=== PATIENT | female | born 1935 | race Caucasian/White ===

== ENCOUNTER → 2021-04-22 10:23 | Outpatient (REF) | payer MEDICARE, MEDICAID, SELFPAY | LOC: ANHLAB 10:23 | PROVIDERS: Visit Provider Nurse Practitioner | DX: C44.1292 Squamous cell carcinoma of skin of left lower eyelid, including canthus (principal); C44.1192 Basal cell carcinoma of skin of left lower eyelid, including canthus | CPT/HCPCS: 88305; 88331 ==

== ENCOUNTER 2021-07-31 12:54 | Outpatient (RCR) | payer MEDICARE, MEDICAID, SELFPAY | END 2021-07-31 23:59 | disposition home or self-care (01) | LOC: ANHAUDIO 12:54 | DX: Z46.1 Encounter for fitting and adjustment of hearing aid (principal) | CPT/HCPCS: 99199 ==

== ENCOUNTER → 2021-09-17 08:52 | Outpatient (REF) | payer MEDICARE, MEDICAID, SELFPAY | LOC: ANHLAB 08:52 | PROVIDERS: Visit Provider Nurse Practitioner | DX: C44.722 Squamous cell carcinoma of skin of right lower limb, including hip (principal) | CPT/HCPCS: 88305 ==

== ENCOUNTER → 2021-11-11 09:29 | Outpatient (REF) | payer MEDICARE, MEDICAID, SELFPAY | LOC: ANHLAB 09:29 | PROVIDERS: Visit Provider Nurse Practitioner | DX: C44.722 Squamous cell carcinoma of skin of right lower limb, including hip (principal) | CPT/HCPCS: 88305; 88331 ==

== ENCOUNTER 2021-11-27 16:11 | Inpatient (IN) | payer MEDICARE, MEDICAID, SELFPAY ==
--- NOTE | ~2021-11-27 | CT_ITS ---
EXAMINATION: CT brain wo [facility] EXAM DATE: 11/27/2021 16:40 INDICATION: dizziness, fall head injury TECHNIQUE: Spiral CT of the head was performed without contrast. Axial, coronal and sagittal images were reviewed. The dose-length product (DLP) for this examination was 605.33 mGy-cm. The exposure w as tailored according to patient size, and iterative reconstruction (ASIR) was used as additional dos e reduction technique. There is no prior study for comparison. FINDINGS: There is no acute intraparenchymal hemorrhage. No evidence of intraparenchymal brain mass lesion. No evidence of acute infarction. Please note that initial head CT has limited sensitivity f or small or acute infarctions. There is moderate periventricular and subcortical hypodensity, nonspec ific but probably related to small vessel ischemic disease. There is mild prominence of the sulci a nd ventricles related to cerebral atrophy. There is intracranial carotid arteriosclerosis. There a re no extra-axial collections. There is no mass effect or midline shift. Patient has had bilateral ocular lens surgery. Soft tissue is unremarkable. The visualized sinuses and mastoid air cells are well aerated. IMPRESSION: 1. No acute intracranial findings. 2. Chronic age related findings. Reviewed, dictated and finalized at location [facility]
[2021-11-27 16:10] VITALS: BP 189/121; PULSE 97; RESP 14; TEMP 36.9; O2SAT 99
--- NOTE | 2021-11-27 16:21 | ECG_ITS ---
Measurements Intervals [place] Rate: 94 P: 58 AR: 143 QRS: 9 QRSD: 85 T: 40 QT: 354 QTc: 445 Interpretive Statements SINUS RHYTHM VENTRICULAR TRIGEMY AND VENTRICULAR BIGEMINY ABNORMAL ECG Electronically Signed On 11-27-2021 20:04:39 [employer] by Ayan Rodriguez D.O.
--- NOTE | 2021-11-27 16:39 | ED.FALL ---
HPI - Fall General Chief Complaint: Fall Stated Complaint: Fall, Dizzy Due to Fall Yesterday Time Seen by Provider: 11/27/21 16:13 History of Present Illness HPI Narrative: 86-year-old female presents to the emergency room status post fall that occurred yesterday in assisted living. Patient states that she has been dizzy and lightheaded intermittently for the past few months. Patient states yesterday she stood up with the assistance of her walker fell over striking her head on a portable heater. Patient denies altered mental status loss of consciousness. Denies chest pain shortness of breath Related Data Home Medications Medication Instructions Recorded Confirmed ascorbic acid (vitamin C) 500 mg 500 mg PO DAILY 04/22/21 tablet calcium carbonate [Calcium 600] PO BID 04/22/21 coenzyme Q10 50 mg capsule 50 mg PO DAILY 04/22/21 gabapentin 100 mg capsule 100 mg PO TID 04/22/21 ibuprofen 200 mg capsule 200 mg PO TID PRN cap 04/22/21 levothyroxine 88 mcg tablet 88 mcg PO DAILY 04/22/21 lisinopril 5 mg tablet 5 mg PO DAILY 04/22/21 metoprolol tartrate 25 mg tablet 25 mg PO DAILY 04/22/21 omega-3 fatty acids 1,000 mg 1,000 mg PO DAILY 04/22/21 capsule vitamin B complex 1 tablet PO DAILY 04/22/21 vitamin E 200 unit capsule 400 unit PO DAILY cap 04/22/21 Allergies Allergy/AdvReac Type Severity Reaction Status Date / Time No Known Allergies Allergy Verified 11/26/21 10:56 Review of Systems Review of Systems: CONSTITUTIONAL: Denies fever, chills, or sweats. EYES: Denies visual changes, redness, or discharge. ENT: Denies rhinorrhea, congestion, sore throat, or otalgia. CARDIOVASCULAR: Denies chest pain, palpitations, or edema. RESPIRATORY: Denies cough or dyspnea. GASTROINTESTINAL: Denies abdominal pain, nausea, vomiting, or diarrhea. GENITOURINARY: Denies dysuria or hematuria. SKIN: Denies rash or itching. MUSCULOSKELETAL: Denies back pain, joint pain, or myalgia. NEUROLOGIC: Denies headache, numbness, dizziness, or weakness. PSYCHIATRIC: Denies anxiety or depression. [facility] Past Medical History Medical History (Updated 11/27/21 @ 17:49 by Faisal Greer APRN) High cholesterol History of squamous cell carcinoma HTN (hypertension) Surgical History Surgical History History of hysterectomy History of parathyroidectomy Social History Social History Smoking status: Never smoker Alcohol intake: never Substance use: never Substance use type: does not use Exam Narrative: GENERAL: Well-appearing, well-nourished, and in no acute distress. HEAD: Normocephalic, small hematoma to the right scalp. EYES: PERRLA and EOMI. ENT: Nares clear, no rhinorrhea or epistaxis. Mucous membranes moist. Oropharynx without tonsillar hypertrophy exudate or other lesions. Bilateral TMs pearly [place]zada nonbulging NECK: Supple. No adenopathy or masses. No carotid bruits or JVD CHEST: Clear to auscultation. No respiratory distress. No wheezes rales or rhonchi HEART: Regular rate and rhythm. No murmur heard. Normal peripheral pulses. ABDOMEN: Soft, nontender, nondistended, normal active bowel sounds. EXTREMITIES: Normal range of motion. No edema. SKIN: Warm, dry, no rash. NEURO: No focal deficits. Alert and oriented x3. PSYCH: Normal mood and affect. Course Vital Signs Vital signs: Vital Signs Temperature 36.9 C 11/27/21 16:10 Pulse Rate 97 11/27/21 16:10 Respiratory Rate 14 11/27/21 16:10 Blood Pressure 189/121 H 11/27/21 16:10 Pulse Oximetry 99 11/27/21 16:10 Temperature 36.9 C 11/27/21 16:10 Pulse Rate 97 11/27/21 16:10 Respiratory Rate 14 11/27/21 16:10 Blood Pressure 189/121 H 11/27/21 16:10 Pulse Oximetry 99 11/27/21 16:10 MDM - Fall Lab Data Result diagrams: 11/27/21 16:32 11/27/21 16:32 Labs: Lab Results 11/27/2111/27
[2021-11-27 16:44] LABS: Basophils Percent Auto 0.5 % (0.2-1.2); Eosinophils Absolute Auto 0.2 K/mm3 (0-0.3); Eosinophils Percent Auto 2.4 % (0-4.4); Hematocrit 39.4 % (37.0-47.0); Hemoglobin 13.1 g/dL (12.0-15.0); Immature Granulocyte Absolute 0.01 K/mm3 (0.00-0.031); Immature Granulocyte Percent A 0.1 % (0-0.5); Mean Corpuscular HGB Conc 33.2 g/dl (32-36); Mean Corpuscular Hemoglobin 30.8 pg (26-34); Mean Corpuscular Volume 92.5 fl (80-100); Mean Platelet Volume 10.6 fl (7.4-10.4); Monocytes Percent Auto 12.2 % (2.6-8.5); Neutrophils Absolute Auto 4.5 K/mm3 (1.3-6.7); Neutrophils Percent Auto 57.8 % (45.5-73.1); Platelet Count Result 235 k/mm3 (150-375); Red Blood Count 4.26 M/mm3 (4.2-5.4); Red Cell Distribution Width 13.1 % (11.5-14.5); White Blood Count 7.8 K/mm3 (4.5-10.0)
[2021-11-27 16:58] LABS: Alanine Aminotransferase 12 U/L (4-35); Albumin Level 4.3 g/dL (3.5-5.1); Alkaline Phosphatase 78 U/L (38-126); Anion Gap 7 mmol/L (8-16); Aspartate Amino Transferase 26 U/L (14-36); Bilirubin,Total 0.4 mg/dL (0.2-1.3); Blood Urea Nitrogen 17 mg/dL (7-17); Carbon Dioxide 25 mmol/L (22-30); Chloride 103 mmol/L (98-107); Estimated CRCL calculation 43 ml/min; Estimated Glomerular Filt Rate > 60; Glucose 109 mg/dL (65-110); Potassium 4.3 mmol/L (3.4-5.0); Sodium 135 mmol/L (137-145)
[2021-11-27 17:09] LABS: Troponin I < 0.012 ng/mL (0.000-0.034)
[2021-11-27] MEDS: lisinopriL 5 MG TABLET PO (17:24)
[2021-11-27 18:10] VITALS: BP 194/108; PULSE 90; RESP 15; O2SAT 98
[2021-11-27 19:37] VITALS: BP 173/62; PULSE 65; RESP 14; O2SAT 96
[2021-11-27 19:37] LABS: SARS-CoV-2 RNA PCR Negative
[2021-11-27 20:44] VITALS: PULSE 91
[2021-11-27] MEDS: METOPROLOL TARTRATE 25 MG TABLET PO (20:44)
[2021-11-27] MEDS: hydrALAZINE HCL 20 MG/ML VIAL 10 MG IV PUSH (20:45)
[2021-11-27 20:59] VITALS: BP 146/70; PULSE 95; RESP 20; O2SAT 97
--- NOTE | 2021-11-27 21:13 | PM.IMHP ---
H&P: HPI History of Present Illness Date/Time: 11/27/21 21:13 Chief Complaint: Syncope Narrative: 86 years old female with past medical history of hypertension presented to emergency room status post fall yesterday and assisted living patient feel dizzy and lightheaded when she stood up she had syncopal episode and fall patient has similar episodes in the past patient denies loss of consciousness chest pain shortness and breath EKG shows trigeminy troponin was negative CT scan of the head was negative patient was admitted to the hospital for further evaluation and treatment Review of Systems Review of Systems: All systems reviewed & are unremarkable except as noted in HPI and below PMFSH Past Medical History Medical History High cholesterol History of squamous cell carcinoma HTN (hypertension) Surgical History Surgical History History of hysterectomy History of parathyroidectomy Social History Social History Smoking status: Never smoker Alcohol intake: never Substance use: never Substance use type: does not use Meds Home Medications and Allergies Home Medications Medication Instructions Recorded Confirmed Type ascorbic acid (vitamin C) 500 mg 500 mg PO DAILY 04/22/21 History tablet calcium carbonate [Calcium 600] PO BID 04/22/21 History coenzyme Q10 50 mg capsule 50 mg PO DAILY 04/22/21 History gabapentin 100 mg capsule 100 mg PO TID 04/22/21 History ibuprofen 200 mg capsule 200 mg PO TID PRN cap 04/22/21 History levothyroxine 88 mcg tablet 88 mcg PO DAILY 04/22/21 History lisinopril 5 mg tablet 5 mg PO DAILY 04/22/21 History metoprolol tartrate 25 mg tablet 25 mg PO DAILY 04/22/21 History omega-3 fatty acids 1,000 mg 1,000 mg PO DAILY 04/22/21 History capsule vitamin B complex 1 tablet PO DAILY 04/22/21 History vitamin E 200 unit capsule 400 unit PO DAILY cap 04/22/21 History Allergies Allergy/AdvReac Type Severity Reaction Status Date / Time No Known Allergies Allergy Verified 11/26/21 10:56 Vital Signs Vital Signs - 24 hr 11/27/21 16:10 11/27/21 18:10 11/27/21 19:37 Temperature 98.4 F Pulse Rate 97 90 65 Respiratory Rate 14 15 14 Blood Pressure 189/121 H 194/108 H 173/62 H Pulse Oximetry 99 98 96 11/27/21 20:44 11/27/21 20:59 Temperature Pulse Rate 91 95 Respiratory Rate 20 Blood Pressure 146/70 H Pulse Oximetry 97 Exam Narrative: APPEARANCE: No acute distress, nontoxic, resting in bed HEENT: Normocephalic, atraumatic, OMM RESPIRATORY: No respiratory distress, clear to auscultation bilaterally with no rhonchi wheezing or rales CARDIOVASCULAR: RRR s murmur ABDOMINAL: Soft nondistended tender palpation left lower quadrant left lower quadrant no tenderness right upper quadrant right lower quadrant no rebound or guarding MUSCULOSKELETAl: Moves all extremities. No clubbing, cyanosis or edema. NEURO: Awake and alert. Following commands, speech normal, no focal deficits SKIN:: Warm, dry. Normal Color PSYCHIATRIC: Normal affect/mood H&P: Results Labs Labs: Short CBC 11/27/21 Range/Units 16:32 WBC 7.8 (4.5-10.0) K/mm3 Hgb 13.1 (12.0-15.0) g/dL Hct 39.4 (37.0-47.0) % Plt Count 235 (150-375) k/mm3 BMP 11/27/21 16:32 Sodium 135 L Potassium 4.3 Chloride 103 Carbon Dioxide 25 BUN 17 Creatinine 0.60 L Glucose 109 Calcium 9.0 Cardiac Enzymes 11/27/21 Range/Units 16:32 Troponin I < 0.012 (0.000-0.034) ng/mL Liver Function 11/27/21 Range/Units 16:32 Total Bilirubin 0.4 (0.2-1.3) mg/dL AST 26 (14-36) U/L ALT 12 (4-35) U/L Alkaline Phosphatase 78 (38-126) U/L Albumin 4.3 (3.5-5.1) g/dL Assessment and Plan Assessment and plan (1) Dizziness: Code(s): R42 - Dizziness and giddiness
[2021-11-27 21:16] VITALS: BP 117/87; PULSE 75; RESP 18; TEMP 36.4; O2SAT 99
[2021-11-27] MEDS: SODIUM CHLORIDE 0.45% 1,000 ML 100 ML IV CONT (21:59)
[2021-11-27] MEDS: HEPARIN SODIUM 5,000 UNITS/ML VIAL 5000 UNITS SUB-Q (22:00)
[2021-11-27 22:08] VITALS: BMI 21.3
[2021-11-27 22:33] LABS: Magnesium 2.3 mg/dL (1.6-2.3)
[2021-11-27 23:10] LABS: Free T4 Free Thyroxine 1.31 ng/mL (0.78-2.19)
[2021-11-28] VITALS (15 sets, daily range): BP systolic 119–178; BP diastolic 59–80; PULSE 56–100; RESP 18; TEMP 36.3–36.8; O2SAT 40–99
--- NOTE | 2021-11-28 | ECHO_ITS ---
Patient Info Name: Elicia Raymond Age: 86 years : 1935 Gender: Female Ht: 61 in Wt: 112 lbs BSA: 1.48 m2 HR: 53 bpm BP: 119 / 59 mmHg Heart Rhythm: Sinus Rhythm Technical Quality: Good Exam Date: 11/28/2021 12:58 PM Exam Location: [facility] Pulmonary Exam Room: [facility] Patient Status: Inpatient Admit Date: 11/27/2021 Staff Ordering Physician: Dot Dahl [employer] Operator: Nohemi Villanueva RDCS Attending Provider: oDt Dahl Referring Physician: Hesham ROBLEDO; Exam Type: CA echo doppler color flow Study Info Indications - syncope Complete two-dimensional, color flow and Doppler transthoracic echocardiogram is performed. Summary 1. Complete two-dimensional, color flow and Doppler transthoracic echocardiogram is performed. 2. Left ventricular chamber dimension is normal. 3. There is mildly increased left ventricular wall thickness. 4. Left ventricular systolic function is normal, estimated at 65-70%. 5. Left ventricular septal wall motion is normal. 6. The left ventricular diastolic function is grade I diastolic dysfunction. 7. Left atrial chamber dimension is moderately enlarged. 8. Right atrial chamber dimension is mildly enlarged. 9. There is mild mitral valve regurgitation. 10. There is mild tricuspid valve regurgitation. 11. Mild pulmonary hypertension, estimated pulmonary arterial systolic pressure is 37 mmHg. Left Ventricle Left ventricular chamber dimension is normal. Left ventricular systolic function is normal, estimated at 65-70%. There is mildly increased left ventricular wall thickness. Left ventricular septal wall motion is normal. The left ventricular diastolic function is grade I diastolic dysfunction. Right Ventricle Right ventricular chamber dimension is normal. Right ventricular systolic function is normal. Left Atria Left atrial chamber dimension is moderately enlarged. Right Atria Right atrial chamber dimension is mildly enlarged. Atrial Septum Suspected patent foramen ovale visualized by color flow imaging. Aortic Valve The aortic valve is trileaflet. There is mild aortic valve sclerosis. There is no aortic valve stenosis. There is trace aortic valve regurgitation. Pulmonic Valve The pulmonic valve is normal. There is no pulmonic valve stenosis. There is trace pulmonic regurgitation. Mitral Valve The mitral valve has calcified annulus. There is no mitral valve stenosis. There is mild mitral valve regurgitation. Tricuspid Valve The tricuspid valve leaflets are normal. There is no significant tricuspid valve stenosis. There is mild tricuspid valve regurgitation. Mild pulmonary hypertension, estimated pulmonary arterial systolic pressure is 37 mmHg. Pericardium/Pleural The pericardium appears normal. There is no pericardial effusion. Inferior Vena Cava Normal inferior vena cava with <50% collapse upon inspiration consistent with normal right atrial pressure, 10 mmHg. Aorta The aortic root size at the sinus of Valsalva is normal. Left Ventricular Outflow Tract Name Value Normal LVOT 2D LVOT Diameter 2.0 cm LVOT Doppler
--- NOTE | 2021-11-28 00:50 | ADMGEN ---
This patient, Elicia Raymond, was admitted to [facility] Surg Room 305-02. Patient/family oriented to hospital policies and general routines including ID bracelet, bed and alarms, visiting hours, pain management, procedures, bathroom and other care routines, personal items, smoking policy, room service/diet, and visiting hours. Information on how to activate the Rapid Response Team has been discussed. Patient/Family are encouraged to report perceived risks to care and to ask questions if they do not understand what they are told or what they should do.
[2021-11-28] MEDS: LEVOTHYROXINE SODIUM 88 MCG TABLET PO (05:36)
[2021-11-28 06:48] LABS: Basophils Absolute Auto 0.1 K/mm3 (0.0-0.1); Basophils Percent Auto 0.9 % (0.2-1.2); Eosinophils Absolute Auto 0.2 K/mm3 (0-0.3); Eosinophils Percent Auto 2.8 % (0-4.4); Hematocrit 37.6 % (37.0-47.0); Hemoglobin 12.9 g/dL (12.0-15.0); Immature Granulocyte Absolute 0.01 K/mm3 (0.00-0.031); Immature Granulocyte Percent A 0.2 % (0-0.5); Lymphocytes Absolute Auto 1.29 K/mm3 (0.9-3.2); Lymphocytes Percent Auto 22.2 % (18.3-44.2); Mean Corpuscular HGB Conc 34.3 g/dl (32-36); Mean Corpuscular Hemoglobin 30.6 pg (26-34); Mean Corpuscular Volume 89.3 fl (80-100); Mean Platelet Volume 10.7 fl (7.4-10.4); Monocytes Absolute Auto 0.7 K/mm3 (0.1-0.6); Monocytes Percent Auto 12.8 % (2.6-8.5); Neutrophils Absolute Auto 3.6 K/mm3 (1.3-6.7); Neutrophils Percent Auto 61.1 % (45.5-73.1); Platelet Count Result 235 k/mm3 (150-375); Red Blood Count 4.21 M/mm3 (4.2-5.4); White Blood Count 5.8 K/mm3 (4.5-10.0)
[2021-11-28 07:22] LABS: Alanine Aminotransferase 11 U/L (4-35); Albumin Level 3.8 g/dL (3.5-5.1); Alkaline Phosphatase 76 U/L (38-126); Anion Gap 6 mmol/L (8-16); Aspartate Amino Transferase 23 U/L (14-36); Bilirubin,Total 0.6 mg/dL (0.2-1.3); Blood Urea Nitrogen 11 mg/dL (7-17); Calcium 8.4 mg/dL (8.4-10.2); Carbon Dioxide 25 mmol/L (22-30); Chloride 107 mmol/L (98-107); Estimated CRCL calculation 45 ml/min; Estimated Glomerular Filt Rate > 60; Glucose 101 mg/dL (65-110); Potassium 3.7 mmol/L (3.4-5.0); Sodium 138 mmol/L (137-145)
[2021-11-28] MEDS: METOPROLOL TARTRATE 25 MG TABLET PO (08:13)
[2021-11-28] MEDS: GABAPENTIN 100 MG CAPSULE PO ×3 (08:13→16:50)
[2021-11-28] MEDS: VITAMIN E 400 UNIT CAPSULE PO (08:14)
[2021-11-28] MEDS: HEPARIN SODIUM 5,000 UNITS/ML VIAL 5000 UNITS SUB-Q ×2 (08:14→21:44)
[2021-11-28] MEDS: SODIUM CHLORIDE 0.45% 1,000 ML 100 ML IV CONT ×2 (08:14→16:50)
[2021-11-28] MEDS: lisinopriL 5 MG TABLET PO (08:14)
--- NOTE | 2021-11-28 09:52 | PM.CNCAR ---
Assessment and Plan Additional Plan -dizziness -falls -frequent PVCs -history of hypertension -hyperlipidemia This is a 86-year-old female who has dizziness when standing up and walking with loss of balance and falling down. Blood pressure on admission was high. EKG shows frequent PVCs without ischemia. Patient denies chest pain, shortness of breath. -check orthostatic vital signs. -echocardiogram. -continue current antihypertensives for the time being. -will likely to need a heart monitor as an outpatient 10 day event monitor. History of Present Illness History of Present Illness Consult date/time: 11/28/21 09:52 Requesting physician: Lance Alonzo M.A., MD Consult reason: Other (Syncope EKG) Reason For Visit: Dizziness Narrative: This is a 86-year-old female with past medical history of hyperlipidemia, hypertension. She apparently feels dizzy while she is walking and on standing up. She fell down but she did not lose consciousness. She feels unsteady when she walks. She does not use a walker. Denies chest pain, lower limb edema, shortness of breath, palpitations. No recent changes in medications Blood pressure on admission 190/110 with a heart rate 97 Creatinine 0.6, normal hemoglobin, COVID negative, CT of the head shows no acute findings. EKG reviewed analyze myself shows sinus rhythm, frequent premature ventricular contractions, QTC interval 440, no ischemia Review of Systems Constitutional: Constitutional: Denies chills, Denies fever(s) and Denies poor appetite Eyes: Eyes: Denies eye discharge, Denies loss of vision, Denies eye pain and Denies photophobia ENT: Denies dizziness, Denies epistaxis, Denies nasal congestion and Denies sore throat Cardiovascular: Cardiovascular: Denies chest pain, Denies syncope, Denies pedal edema, Denies leg edema, Denies palpitations, Denies dyspnea, Denies dyspnea on exertion and Denies orthopnea Respiratory: Respiratory: Denies cough, Denies dyspnea, Denies dyspnea on exertion and Denies wheezing Gastrointestinal: Gastrointestinal: Denies abdominal pain, Denies diarrhea, Denies nausea and Denies vomiting Genitourinary: Genitourinary: Denies hematuria, Denies genital lesions and Denies dysuria Musculoskeletal: Musculoskeletal: Denies arthralgias, Denies joint swelling and Denies numbness Integumentary/Breasts: Skin/Breast: Denies pruritus and Denies rash Neurologic: Reports dizziness, Denies syncope, Reports frequent falls, Denies loss of vision and Denies numbness Psychiatric: Psychiatric: Denies anxiety and Denies depression Endocrine: Endocrine: Denies cold intolerance, Denies heat intolerance and Denies palpitations Hematologic/Lymphatic: Hematologic/Lymphatic: Denies easy bleeding and Denies easy bruising Allergic/Immunologic: Allergic/Immunologic: Denies urticaria and Denies wheezing PMFSH Past Medical History Medical History High cholesterol History of squamous cell carcinoma HTN (hypertension) Surgical History Surgical History History of hysterectomy History of parathyroidectomy Social History Social History Smoking status: Never smoker Alcohol intake: never Substance use: never Substance use type: does not use Spiritual care concerns: No Meds Home Medications and Allergies Home Medications Medication Instructions Recorded Confirmed Type ascorbic acid (vitamin C) 500 mg 500 mg PO DAILY 04/22/21 11/27/21 History tablet calcium carbonate [Calcium 600] 600 mg PO DAILY 04/22/21 11/27/21 History gabapentin 100 mg capsule 100 mg PO TID 04/22/21 11/27/21 History ibuprofen 200 mg capsule 200 mg PO TID PRN cap 04/22/21 11/27/21 History levothyroxine 88 mcg tablet 88 mcg PO DAILY 04/22/21 11/27/21 History lisinopril 5 mg tablet 5 mg PO DAILY 04/22/21 11/27/21 History m
--- NOTE | 2021-11-28 10:13 | PC.NURSE ---
orthostatic bp performed this morning lying 130/59 60 97% ra, sitting 119/62 60 99% ra, standing 119/59 62 97% ra
--- NOTE | 2021-11-28 12:20 | PM.IMPN ---
Progress Note: A&P Assessment and Plan (1) Hypothyroidism: Onset Date: ~11/28/21 Qualifiers: Hypothyroidism type: unspecified Qualified Code(s): E03.9 - Hypothyroidism, unspecified Code(s): E03.9 - Hypothyroidism, unspecified Status: Chronic Assessment and Plan: - Check TSH - Restart the dose of Levothyroxine that pt. should be taking. - Monitor VS and labs. - As pt. has also had a parathyroidectomy, will check an ionized calcium level. - Continue telemetry. Additional Plan Assessment and plan (1) Dizziness: Code(s): R42 - Dizziness and giddiness Status: Acute Assessment and Plan: - Negative troponin - Negative CT scan of the head - Probable orthostatic versus vasovagal - Cardiology consult as patient has abnormal ECG; follow all recs. - Follow echo results - Continue current anti-hypertensives. - Fall precautions - Check TSH, Ionized Calcium, and UA (2) High cholesterol: Code(s): E78.00 - Pure hypercholesterolemia, unspecified Status: Acute Assessment and Plan: - Cardiac Diet - No current treatment in home meds for HLD. Will recheck a cholesterol level. (3) HTN (hypertension): Qualifiers: Hypertension type: primary hypertension Qualified Code(s): I10 - Essential (primary) hypertension Code(s): I10 - Essential (primary) hypertension Status: Acute Assessment and Plan: - Continue home medication pending verification - Monitor with VS. (4) Skin neoplasm: History of. Code(s): D49.2 - Neoplasm of unspecified behavior of bone, soft tissue, and skin Status: Acute Assessment and Plan: - Status post surgical intervention follow-up with Plastic surgery as outpatient Time Spent With Patient Time with patient: 15 - 25 minutes Subjective Date/time seen: 11/28/21 0940 This pt. is examined at the bedside this morning in interval assessment. She is pleasantly confused. She has no complaints of any pain, dyspnea, and when asked what brought her to the ER, she said she doesn't recall coming to the ER. She is alert and oriented to self only. She cannot identify her location, time or reason for being here. She has no other issues at this time. She states she lives at home alone and has a medical housekeeper. She actually lives at [facility]. She states she has been taking all of her medications as ordered, but when the pharmacy was called, we were told that she hadn't filled any prescriptions there since June of 2021. This pt. had a reported fall after becoming dizzy at her Assisted Living Facility. She stood with the assistance of her walker and fell over striking her head on a portable heater. Pt. was not noted to be confused in the ER, but she clearly is now. It is also noted that she has a history of Parathyroidectomy, and has not been taking her Calcium. She also has a history of Hypothyroidism and has not been taking her Levothyroxine. Will have PT see her. Cardiology has consulted and they have suggested checking an ECHO, orthostatics and Heart monitor at discharge. In addition, we will continue her current anti-hypertensives on her home med list. Review of Systems Review of Systems: Unable to identify any new complaints from pt. today. However, she is A&Ox1. All systems reviewed & are unremarkable except as noted in HPI and below Exam Const: General: comfortable and no acute distress; No in distress HENMT: Mouth: Yes moist mucous membranes Eyes: Sclera: sclerae normal Neck: Neck: supple and no JVD Resp: Effort & Inspection: normal respiratory effort Auscultation: clear to auscultation bilaterally Cardio: Rate: regular rate Rhythm: regular rhythm GI: GI Palp: Yes Soft to palpation and No Tenderness to palpation present (GI) Auscultation: normal bowel sounds Neuro: General: gait normal Cognition (Neuro): abnormal cognition (Pt. A&Ox1 for me. According to RN, this waxes and
[2021-11-28 13:15] LABS: Cholesterol 265 mg/dL (0-200); HDL Direct 39 mg/dL; Triglycerides 186 mg/dL (<150)
[2021-11-28 13:25] LABS: LDL Cholesterol Direct 171 mg/dL
[2021-11-28] MEDS: ASCORBIC ACID 500 MG TABLET PO (14:03)
[2021-11-28] MEDS: CALCIUM CARBONATE (OSCAL) 500 MG TABLET PO (14:03)
[2021-11-28 15:25] LABS: Add Urine Microscopic? NO; Appearance Urine Clear (Clear); Bilirubin Urine Negative (Negative); Blood Urine Negative (Negative); Color Urine Yellow (Yellow); Glucose Urine UA Negative (Negative); Ketones Urine Negative (Negative); Leukocyte Esterase Ur Negative LEU/UL (Negative); Nitrate Urine Negative (Negative); Protein Urine Negative (Negative); Specific Grav Ur 1.009 (1.001-1.035); Urobilinogen Urine Negative mg/dL (<2.0)
--- NOTE | 2021-11-28 15:42 | PC.NURSE ---
UA collected and sent to lab for analysis, awaiting results.
[2021-11-29] VITALS (10 sets, daily range): BP systolic 138–193; BP diastolic 49–98; PULSE 60–96; RESP 16–20; TEMP 35.7–36.7; O2SAT 98–100
[2021-11-29] MEDS: SODIUM CHLORIDE 0.45% 1,000 ML 100 ML IV CONT ×2 (04:28→13:08)
[2021-11-29] MEDS: LEVOTHYROXINE SODIUM 88 MCG TABLET PO (05:49)
[2021-11-29] MEDS: ASCORBIC ACID 500 MG TABLET PO (08:32)
[2021-11-29] MEDS: GABAPENTIN 100 MG CAPSULE PO ×2 (08:32→13:08)
[2021-11-29] MEDS: HEPARIN SODIUM 5,000 UNITS/ML VIAL 5000 UNITS SUB-Q (08:32)
[2021-11-29] MEDS: VITAMIN E 400 UNIT CAPSULE PO (08:32)
[2021-11-29] MEDS: METOPROLOL TARTRATE 25 MG TABLET PO (08:32)
[2021-11-29] MEDS: CALCIUM CARBONATE (OSCAL) 500 MG TABLET PO (08:32)
[2021-11-29] MEDS: OMEGA 3 POLYUNSAT FATTY ACIDS 1 GM CAP PO (08:33)
[2021-11-29] MEDS: SIMVASTATIN 20 MG TABLET PO (08:33)
[2021-11-29] MEDS: lisinopriL 5 MG TABLET PO (08:34)
--- NOTE | 2021-11-29 08:52 | PC.NURSE ---
orthostatic's + this morning see vital sign flowsheet.
--- NOTE | 2021-11-29 13:48 | PM.DS ---
DS: Admitting Diagnosis Discharge Date 11/29/2021 Admitting Diagnosis Dizziness, Hyperlipidemia, Hypertension, Skin Neoplasm DS: Discharge Diagnosis Discharge Diagnosis (1) Dizziness: Onset Date: ~11/27/21 Code(s): R42 - Dizziness and giddiness Status: Acute Assessment and Plan: - Negative Troponins - Negative CT of head, low suspicion of acute CVA. - ECHO performed with review by Cardiology [facility] who agrees that there is nothing overtly incorrect. - Cardiology consulted - Pt. to discharge with holter monitor. - Continue current medications. (2) HTN (hypertension): Onset Date: Unknown Qualifiers: Hypertension type: primary hypertension Qualified Code(s): I10 - Essential (primary) hypertension Code(s): I10 - Essential (primary) hypertension Status: Chronic Assessment and Plan: - Continue home medications of Lisinopril 5 mg po daily, Metoprolol 25 mg po daily (3) High cholesterol: Onset Date: Unknown Code(s): E78.00 - Pure hypercholesterolemia, unspecified Status: Chronic Assessment and Plan: - Started on Simvastatin 20 mg po daily for her cholesterol levels of: Total - 265, and Triglycerides of 186. - Also started Fish oil 1G daily. - Will need followed by PCP. (4) Skin neoplasm: Onset Date: Unknown Code(s): D49.2 - Neoplasm of unspecified behavior of bone, soft tissue, and skin Status: Chronic Assessment and Plan: History of. Will have to be followed remotely with PCP. DS: Summary Hospital Course Hospital Course: This 86 year old female patient with significant PMH of Hypertension, presented to the ER status post mechanical fall at her assisted living facility. She reported that when she stood up, she felt dizzy and lightheaded,, and this resulted in her falling. She has had several episodes of the same in the past. She did not lose consciousness, did not have CP, and did not have dyspnea. Her EKG did show some Trigemeny in ER initially. Troponin's and CT of head were negative. Pt was admitted to the hospital for evaluation and further management. Due to patient's level of confusion, it was difficult initially to determine what if any of her home medications she was taking. We then spoke with the patient's daughter Marti, and she told us that the pt. is at an assisted living facility and they help administer there and that she has been receiving her medications regularly. The pt's mental status waxes and wanes in severity, but she remains stable. ECHO was performed that showed a normal EF of 65-70%, mild increased left ventricular wall thickness, and LVDF is grade 1 diastolic function. RVSF is normal and there is a suspected foramen ovale by color flow doppler. This has been reviewed by Cardiology and the recommendation is to place a holter monitor for further evaluation. Pt's BP has returned to normal and pt. is without complaints. She has her holter monitor on and she is prepared for discharge at this time with the addition of Fish oil 1G daily and Simvastatin 20 mg po daily for her Dyslipidemia and with increasing her Metoprolol Tartrate dose from 25 mg po daily to 25 mg po BID. She will need a follow up with her PCP in one week and also with Cardiology services in 7-10 days. Time Spent with Patient Time attestation: Total time spent providing and/or coordinating discharge services: 40 Exam Narrative: Exam Const: General: comfortable and no acute distress; No in distress HENMT: Mouth: Yes moist mucous membranes Eyes: Sclera: sclerae normal Neck: Neck: supple and no JVD Resp: Effort & Inspection: normal respiratory effort Auscultation: clear to auscultation bilaterally Cardio: Rate: regular rate Rhythm: regular rhythm GI: GI Palp: Yes Soft to palpation and No Tenderness to palpation present (GI) Auscultation: normal bowel sounds Neuro: General: gait normal Cognition (Neuro): abnormal cognition (Pt. A&Ox1 for me. A
--- NOTE | 2021-11-29 14:06 | PC.NURSE ---
Per Vivi Louise NP from cardiology, pt will discharge with order for holter monitor x10 days, pt will need to schedule appointment for mohamud monitor placement. If discharge today, only available to get at office until 3pm today, or return Thursday to office for holter monitor placement. Pt to schedule appointment prior to coming to office.
--- NOTE | 2021-11-29 14:15 | PC.NURSE ---
Spoke with Nhung Pavon inquiring if cardiology office can come up to floor for holter placement prior to pt discharging today.
--- NOTE | 2021-11-29 14:18 | PC.NURSE ---
Spoke with daughter, daughter stated pt will need emt's transport to [facility], daughter stated can't transport to appointment today or Thursday, but [facility] transports pt to office visits on Tuesdays. Rom mays RN to transport to appointment today for discharge.
--- NOTE | 2021-11-29 14:38 | PC.NURSE ---
Pt to discharge today, [facility] to take to office visit at 1030 am on 12/03/21. Pt transporting to [facility] via emt's.
--- NOTE | 2021-11-29 14:40 | PC.NURSE ---
Nhung wanted current blood pressure 139/69 and patient to go to cardiology and get halter monitor placed prior to discharge. I called the billing adjudicator office at 1430 and they stated that Tonie scheduled appointment for halter monitor placement on thursday at 10:30. I notified Nhung of that change and she is ok with discharge as long as patient is able to keep that appointment on Thursday to get halter monitor placed. I let her nurse Sarah know.
[2021-11-29 16:41] LABS: EDCOVIDSCREEN Negative (Negative)
[2021-11-30 04:15] LABS: Ionized Calcium 4.9 mg/dL (4.8-5.6)
== END 2021-11-29 17:15 | DRG 149 ==
LOC: ANHED 17:49 → ANH3MEDSUR 19:53
PROVIDERS: Internal Medicine; Nurse Practitioner Adult Health; Admitting Provider Internal Medicine; Emergency Provider Nurse Practitioner Family; Visit Provider Internal Medicine
DX: R42 Dizziness and giddiness (principal); R55 Syncope and collapse; I10 Essential (primary) hypertension; E78.5 Hyperlipidemia, unspecified; E78.00 Pure hypercholesterolemia, unspecified; R41.0 Disorientation, unspecified; R29.6 Repeated falls; I49.3 Ventricular premature depolarization; Z20.822 Contact with and (suspected) exposure to COVID-19; E03.9 Hypothyroidism, unspecified; W19.XXXA Unspecified fall, initial encounter; Z85.828 Personal history of other malignant neoplasm of skin; Z90.89 Acquired absence of other organs; Z90.710 Acquired absence of both cervix and uterus
CPT/HCPCS: 36415; 70450; 80053; 80061; 81003; 82330; 83735; 84439; 84443; 84484; 85025; 87426; 93005; 93306; 96361; 96372; 96374; 97110; 97116; 97161; 99285; A9270; C9803; G0378; J0360; J1644; U0003; U0005

== ENCOUNTER 2022-07-01 08:41 | Outpatient (CLI) | payer MEDICARE, MEDICAID, SELFPAY ==
[2022-07-01 10:02] LABS: Alanine Aminotransferase 17 U/L (6-35); Albumin Level 4.2 g/dL (3.5-5.1); Alkaline Phosphatase 82 U/L (38-126); Anion Gap 12 mmol/L (8-16); Aspartate Amino Transferase 26 U/L (14-36); Bilirubin,Total 0.4 mg/dL (0.2-1.3); Blood Urea Nitrogen 17 mg/dL (7-17); Carbon Dioxide 25 mmol/L (22-30); Chloride 104 mmol/L (98-107); Cholesterol 301 mg/dL (0-200); Estimated Glomerular Filt Rate > 60; Glucose 118 mg/dL (65-110); HDL Direct 48 mg/dL; Potassium 4.3 mmol/L (3.4-5.0); Sodium 141 mmol/L (137-145); Triglycerides 152 mg/dL (<150)
[2022-07-01 10:13] LABS: LDL Cholesterol Direct 188 mg/dL
[2022-07-01 10:27] LABS: Vitamin D 25 Hydroxy 52.7 ng/mL
== END 2022-07-01 08:42 | disposition home or self-care (01) ==
PROVIDERS: PCP Internal Medicine; Visit Provider Nurse Practitioner
DX: E78.00 Pure hypercholesterolemia, unspecified (principal); E03.9 Hypothyroidism, unspecified; E55.9 Vitamin D deficiency, unspecified
CPT/HCPCS: 36415; 80053; 80061; 82306; 84443

== ENCOUNTER 2022-12-30 08:42 | Outpatient (CLI) | payer MEDICARE, MEDICAID, SELFPAY ==
[2022-12-30 10:07] LABS: Alanine Aminotransferase 17 U/L (6-35); Albumin Level 4.4 g/dL (3.5-5.1); Alkaline Phosphatase 72 U/L (38-126); Anion Gap 5 mmol/L (8-16); Aspartate Amino Transferase 26 U/L (14-36); Bilirubin,Total 0.7 mg/dL (0.2-1.3); Blood Urea Nitrogen 12 mg/dL (7-17); Carbon Dioxide 29 mmol/L (22-30); Chloride 106 mmol/L (98-107); Cholesterol 312 mg/dL (0-200); Estimated Glomerular Filt Rate > 60; Glucose 105 mg/dL (65-110); HDL Direct 44 mg/dL; Hemoglobin A1C 5.6 % (<5.7); Potassium 4.3 mmol/L (3.4-5.0); Sodium 140 mmol/L (137-145); Triglycerides 163 mg/dL (<150)
[2022-12-30 10:18] LABS: LDL Cholesterol Direct 179 mg/dL
== END 2022-12-30 08:43 | disposition home or self-care (01) ==
LOC: ANHLAB 08:44
PROVIDERS: PCP Internal Medicine; Visit Provider Nurse Practitioner Family
DX: I10 Essential (primary) hypertension (principal); R73.01 Impaired fasting glucose; E78.5 Hyperlipidemia, unspecified
CPT/HCPCS: 36415; 80053; 80061; 83036; 84443

== ENCOUNTER 2023-07-31 16:04 | Inpatient (IN) | payer MEDICARE, MEDICAID, SELFPAY ==
[2023-07-31] VITALS (16 sets, daily range): BP systolic 162–182; BP diastolic 65–93; PULSE 65–97; RESP 12–20; TEMP 36.5–36.9; O2SAT 93–98; BMI 23.1
--- NOTE | ~2023-07-31 | XR_ITS ---
XR surgery orthopedic DATE: 08/01/2023 13:33 INDICATION: Left intertrochanteric hip fracture TECHNIQUE: 4 spot C-arm images of the left hip 102.3 seconds fluoroscopy time 18.74 mGy COMPARISON: 07/31/2023 left hip FINDINGS: There is surgical internal fixation of left intertrochanteric fracture by means of compress ion screw and intramedullary nail, the latter secured by a transverse through screw. There is near-an atomic position and alignment at the fracture site. IMPRESSION: ORIF left intertrochanteric hip fracture Reviewed, dictated and finalized at [facility]. Reviewed, dictated and finalized at location A.
--- NOTE | ~2023-07-31 | XR_ITS ---
EXAMINATION: XR chest 1V portable DATE: 08/04/2023 05:38 INDICATION: Pneumonia. TECHNIQUE: A single frontal view of the chest was obtained. COMPARISON: Chest single view 07/31/2023 FINDINGS: There is mild atelectasis versus scarring in right lower lung zone and left mid and lower l marleen zones. Calcified pulmonary nodules are consistent with old granulomatous disease. No pleural effu antony or pneumothorax. Cardiomegaly is noted. IMPRESSION: 1. Mild atelectasis versus scarring in right lower lung zone and left mid and lower lung zones. 2. Cardiomegaly. Reviewed, dictated and finalized at location E. IMPRESSION: 1. Mild atelectasis versus scarring in right lower lung zone and left mid and l ower lung zones. 2. Cardiomegaly.
--- NOTE | ~2023-07-31 | CT_ITS ---
EXAMINATION: CT brain wo con INDICATION: Headache COMPARISON: 11/27/2021 TECHNIQUE: Standard unenhanced head CT. The dose-length product (DLP) was 605.33 mGy-cm. The mA was a djusted according to patient size. Iterative reconstruction technique was employed. FINDINGS: No acute intraparenchymal hemorrhage. No evidence of mass lesion. No evidence of acute infa rction. There is mild periventricular and subcortical hypodensity probably related to small vessel is chemic disease. There is mild prominence of the sulci and ventricles related to cerebral atrophy. Int racranial calcified cerebral atherosclerosis is noted. No extra-axial collections. No mass effect or midline shift. Changes in the globes are likely from ocular lens surgery. There is mild mucosal thick ening of the paranasal sinuses. IMPRESSION: 1. No acute intracranial abnormality. 2. Age related findings. Reviewed, dictated and finalized at location F.
--- NOTE | ~2023-07-31 | XR_ITS ---
EXAMINATION: XR shoulder LT min 2V DATE: 08/03/2023 14:58 INDICATION: Left shoulder bruising post fall TECHNIQUE: AP internally and externally rotated, AP oblique externally rotated and transscapular Y vi ews of the affected shoulder were obtained. COMPARISON: None FINDINGS: Normal alignment. No fracture. Glenohumeral joint is normal. Moderate left acromioclavicular osteoar thritis. Soft tissues are unremarkable. Calcified nodule in the left upper lung zone consistent with old granulomatous disease. Left basilar opacities which could represent atelectasis or pneumonia. IMPRESSION: 1. Moderate left segura clavicular osteoarthritis. No acute osseous abnormality. 2. Mild left basilar opacities which could represent atelectasis or pneumonia. Reviewed, dictated and finalized at location A. IMPRESSION: 1. Moderate left segura clavicular osteoarthritis. No acute osseous abnormality . 2. Mild left basilar opacities which could represent atelectasis or pneumonia.
--- NOTE | ~2023-07-31 | XR_ITS ---
EXAMINATION: XR hip LT 2V w AP pelvis INDICATION: Left hip pain, initial encounter TECHNIQUE: AP view the pelvis and two views of the left hip are obtained. COMPARISON: None available FINDINGS: There is an acute, traumatic intertrochanteric fracture of left femur. The greater trochant er may reside on a separate fracture fragment. The femoral heads are seated in the acetabula. No meghan tional fracture is identified. There are phleboliths of the pelvis. IMPRESSION: 1. Acute intertrochanteric left femoral neck fracture with possible separate fracture fragment contai josie the greater trochanter. Reviewed, dictated and finalized at location F. IMPRESSION: 1. Acute intertrochanteric left femoral neck fracture with possible separate fr acture fragment containing the greater trochanter.
--- NOTE | ~2023-07-31 | XR_ITS ---
EXAMINATION: XR shoulder RT min 2V DATE: 08/03/2023 14:58 INDICATION: Right shoulder pain post fall TECHNIQUE: AP internally and externally rotated, AP oblique externally rotated and transscapular Y vi ews of the right shoulder were obtained. COMPARISON: None FINDINGS: Normal alignment. No fracture. Glenohumeral joint is normal. Moderate acromioclavicular osteoarthrit is. Soft tissues are unremarkable. Calcified nodule at the right apex consistent with old granulomato us disease. IMPRESSION: Moderate right acromioclavicular osteoarthritis. No acute osseous abnormality. Reviewed, dictated and finalized at location A.
--- NOTE | ~2023-07-31 | XR_ITS ---
EXAMINATION: XR chest 1V INDICATION: Pain after fall TECHNIQUE: AP view of the chest is obtained. COMPARISON: None available FINDINGS: The lungs are free of acute opacities. No pleural effusion or pneumothorax. Cardiomegaly is noted. IMPRESSION: 1. No acute cardiopulmonary abnormality. Reviewed, dictated and finalized at location F.
[2023-07-31 17:00] LABS: Basophils Percent Auto 0.6 % (0.2-1.2); Eosinophils Percent Auto 0.4 % (0-4.4); Hematocrit 32.3 % (37.0-47.0); Hemoglobin 10.8 g/dL (12.0-15.0); Immature Granulocyte Absolute 0.03 K/mm3 (0.00-0.031); Immature Granulocyte Percent A 0.6 % (0-0.5); Lymphocytes Absolute Auto 0.84 K/mm3 (0.9-3.2); Mean Corpuscular HGB Conc 33.4 g/dl (32-36); Mean Corpuscular Hemoglobin 31.1 pg (26-34); Mean Corpuscular Volume 93.1 fl (80-100); Mean Platelet Volume 10.1 fl (7.4-10.4); Monocytes Percent Auto 20.2 % (2.6-8.5); Neutrophils Percent Auto 61.2 % (45.5-73.1); Platelet Count Result 189 k/mm3 (150-375); Red Blood Count 3.47 M/mm3 (4.2-5.4); Red Cell Distribution Width 13.4 % (11.5-14.5)
[2023-07-31] MEDS: MORPHINE SULFATE (*CRX) 2 MG/ML INJ IV PUSH (17:02)
[2023-07-31 17:11] LABS: Prothrombin Time 13.4 Seconds (11.1-14.7)
[2023-07-31 17:19] LABS: Alanine Aminotransferase 26 U/L (6-35); Albumin Level 3.5 g/dL (3.5-5.1); Alkaline Phosphatase 79 U/L (38-126); Anion Gap 6 mmol/L (8-16); Aspartate Amino Transferase 39 U/L (14-36); Bilirubin,Total 0.4 mg/dL (0.2-1.3); Blood Urea Nitrogen 15 mg/dL (7-17); Calcium 8.1 mg/dL (8.4-10.2); Carbon Dioxide 28 mmol/L (22-30); Chloride 97 mmol/L (98-107); Estimated CRCL calculation 62 ml/min; Estimated Glomerular Filt Rate > 60; Glucose 120 mg/dL (65-110); Potassium 3.9 mmol/L (3.4-5.0); Sodium 131 mmol/L (137-145)
--- NOTE | 2023-07-31 18:02 | ED.FALL ---
HPI - Fall General Chief Complaint: Fall Stated Complaint: left hip pain Time Seen by Provider: 07/31/23 16:17 History of Present Illness HPI Narrative: Patient is an 87-year-old female who presents ER status post fall. She was at her memory care when she had a ground-level fall hitting her head and landing on her left hip. Sudden onset pain in the left hip. Worse with movement. Shortened and externally rotated. Patient is not on any blood thinning medications. No headache/change in vision. Oriented x2 at baseline. Related Data Home Medications Medication Instructions Recorded Confirmed calcium carbonate [Calcium 600] 600 mg PO DAILY 04/22/21 07/16/23 Allergies Allergy/AdvReac Type Severity Reaction Status Date / Time No Known Allergies Allergy Verified 07/31/23 16:16 Review of Systems Review of Systems: All systems reviewed & are unremarkable except as noted in HPI and below ROS unobtainable: Yes other (Limited due to dementia) Cardiovascular: Cardiovascular: Denies chest pain and Denies rapid heart rate Respiratory: Respiratory: Denies cough, Denies dyspnea and Denies wheezing Musculoskeletal: Musculoskeletal: Reports arthralgias and Denies joint swelling Integumentary/Breasts: Skin/Breast: Denies erythema and Denies rash Comments: Skin tears from fall Neurologic: Denies syncope, Denies headache(s), Denies focal weakness and Denies numbness PMFSH Past Medical History Medical History Cancer High cholesterol (Unknown) History of shingles 03/2021 History of squamous cell carcinoma HTN (hypertension) (Unknown) Hyperlipidemia Memory loss Painful joint Skin change Snoring Tired Surgical History Surgical History History of hysterectomy History of parathyroidectomy Social History Social History (Updated 12/23/22 @ 15:33 by Karrie Marr MA) Smoking status: Never smoker Alcohol intake: never Substance use: never Substance use type: does not use Lack of Transportation: No Lack of Food: Sometimes True Current Housing: I Have Housing Concerned About Future Housing: No Difficulty Paying Gas/Electric Bills: No Difficulty Paying for Meds: No Currently Unemployed: No Education: Grade School Difficulty w/ Childcare or Family Care: No Spiritual care concerns: No Exam Narrative: GENERAL: Well-appearing, well-nourished, and in no acute distress. HEAD: Normocephalic, atraumatic. EYES: PERRL and EOMI. ENT: Mucous membranes moist. CHEST: Clear to auscultation. No respiratory distress. HEART: Regular rate and rhythm. Normal peripheral pulses. ABDOMEN: Soft, nontender, nondistended. EXTREMITIES: Left lower extremity shortened and externally rotated. Tenderness at the hip. Neurovascular intact distal to area of injury. SKIN: Warm, dry, no rash. NEURO: Alert and oriented x2. PSYCH: Normal mood and affect. Course Course Emergency Course: Discussed case with Dr. Ireland with orthopedic surgery. He will consult on the patient. Patient accepted by hospitalist service. Vital Signs Vital signs: Vital Signs Temperature 98.4 F 07/31/23 16:03 Pulse Rate 72 07/31/23 16:03 Respiratory Rate 12 07/31/23 16:03 Blood Pressure 181/73 H 07/31/23 16:03 Pulse Oximetry 96 07/31/23 16:03 Oxygen Delivery Room Air 07/31/23 16:03 Temperature 98.4 F 07/31/23 16:03 Pulse Rate 67 07/31/23 17:01 Respiratory Rate 18 07/31/23 17:01 Blood Pressure 173/76 H 07/31/23 18:46 Pulse Oximetry 94 07/31/23 18:46 Oxygen Delivery Room Air 07/31/23 16:03 MDM - Fall Lab Data 07/31/23 16:55 07/31/23 16:55 Labs: Lab Results 07/31/23 Range/Units 16:55 WBC 5.0 (4.5-10.0) K/mm3 RBC 3.47 L (4.2-5.4) M/mm3 Hgb 10.8 L (12.0-15.0) g/dL Hct 32.3 L (37.0-47.0) % MCV 93.1 (80-100)
[2023-07-31] MEDS: MORPHINE SULFATE (*CRX) 4 MG/ML INJ 2 MG IV PUSH (19:57)
--- NOTE | 2023-07-31 20:15 | ECG_ITS ---
Measurements Intervals [place] Rate: 95 P: 64 CA: 178 QRS: 17 QRSD: 102 T: 31 QT: 385 QTc: 486 Interpretive Statements SINUS RHYTHM WITH SINUS ARRHYTHMIA NORMAL ECG COMPARED TO ECG 11/27/2021 16:17:43 SINUS ARRHYTHMIA NOW PRESENT Electronically Signed On 08-01-2023 14:35:28 CDT by Lazaro Arriola M.D.
--- NOTE | 2023-07-31 22:04 | ADMGEN ---
This patient, Elicia Raymond, was admitted to [facility] Surg Room 316-01. Patient/family oriented to hospital policies and general routines including ID bracelet, bed and alarms, visiting hours, pain management, procedures, bathroom and other care routines, personal items, smoking policy, room service/diet, and visiting hours. Information on how to activate the Rapid Response Team has been discussed. Patient/Family are encouraged to report perceived risks to care and to ask questions if they do not understand what they are told or what they should do.
--- NOTE | 2023-07-31 23:42 | PM.IMHP ---
H&P: HPI History of Present Illness Date/Time: 08/01/23 00:30 Chief Complaint: Fall with left hip pain Narrative: 87-year-old female with a past medical history of dementia, hypothyroidism and osteoporosis who presented from [facility] via EMS after unwitnessed ground level fall with left hip shortening and rotation. The patient reported to the ER staff that she did hit her head but does not remember losing consciousness. She has a low alert oriented times 1-2 at baseline. She is conversational but thinks that she is currently in a basement. She reports left hip pain. She denies any head pain. She has noted skin tears to her left 5th finger and middle finger. Her middle finger is bandaged and I was unable to further assess. She is noted to be coughing. She denies feeling short of breath. She states that she has only been coughing for 1 day. However the patient is a poor historian. Her cough is nonproductive. She has remained afebrile since presentation to the ER. She has a Jones catheter in due to immobility. She does not usually have a Jones catheter in place. Replaced in the ER. [facility]. Review of Systems Review of Systems: ROS unobtainable: Yes unobtainable due to medical condition (Dementia) [facility] Past Medical History Medical History (Updated 08/01/23 @ 02:34 by Shadia Rosas DO) High cholesterol (Unknown) History of shingles 03/2021 History of squamous cell carcinoma HTN (hypertension) (Unknown) Hyperlipidemia Hypothyroidism (~11/28/21) Skin change Snoring Urinary incontinence, mixed Surgical History Surgical History (Updated 08/01/23 @ 02:22 by Shadia Rosas DO) History of hysterectomy History of parathyroidectomy Status post cataract extraction of both eyes with insertion of intraocular lens Family History Family History Other Unknown family medical history Social History Social History (Updated 08/01/23 @ 02:25 by Shadia Rosas DO) Social History: Patient lives at [facility]. Code status: Full code (per EMR) Surrogate decision maker: Jayla Mahoney Smoking status: Never smoker Alcohol intake: never Substance use: never Substance use type: does not use Lack of Transportation: No Lack of Food: Sometimes True Current Housing: I Have Housing Concerned About Future Housing: No Difficulty Paying Gas/Electric Bills: No Difficulty Paying for Meds: No Currently Unemployed: No Education: Grade School Difficulty w/ Childcare or Family Care: No Living arrangements: prison Spiritual care concerns: No Meds Home Medications and Allergies Home Medications Medication Instructions Recorded Confirmed Type cholecalciferol (vitamin D3) 25 25 mcg PO DAILY #90 caps 06/19/22 07/31/23 Rx mcg (1,000 unit) capsule duloxetine 30 mg capsule,delayed 30 mg PO DAILY #30 caps 06/19/22 07/31/23 Rx release (Cymbalta) lisinopril 5 mg tablet 5 mg PO DAILY #90 tabs 06/19/22 07/31/23 Rx magnesium 200 mg tablet 400 mg PO DAILY #90 tabs 06/19/22 07/31/23 Rx metoprolol tartrate 25 mg tablet 25 mg PO DAILY #60 tabs 06/19/22 07/31/23 Rx omega-3 fatty acids 1,000 mg 1,000 mg PO DAILY #90 caps 06/19/22 07/31/23 Rx capsule ascorbic acid (vitamin C) 1,000 mg 1 g PO DAILY #30 tabs 07/23/22 07/31/23 Rx tablet Synthroid 88 mcg tablet 88 mcg PO DAILY #90 tabs 07/24/22 07/31/23 Rx (levothyroxine) mecobalamin (vitamin B12) 1,000 1,000 mcg PO DAILY #30 tabs 12/23/22 07/31/23 Rx mcg chewable tablet sodium chloride 5 % eye drops 1 drp EACH EYE TID dry eye(s) #15 04/15/23 07/31/23 Rx mL ibuprofen 200 mg capsule 200 mg PO TID PRN Pain (Scale 07/03/23 07/31/23 Rx Score 1-3) #90 caps dextran 70-hypromellose eye drops 1 drp EACH EYE HS 07/31/23 07/31/23 History (Artificial Tears (dextran 70-hypromellose
[2023-08-01] VITALS (12 sets, daily range): BP systolic 113–180; BP diastolic 50–106; PULSE 60–92; RESP 12–20; TEMP 36.4–37.2; O2SAT 90–100
[2023-08-01 05:07] LABS: Influenza A QL RT-PCR Negative (Negative); Influenza B QL RT-PCR Negative (Negative); SARS-CoV-2 RNA PCR Positive (Negative)
[2023-08-01] MEDS: hydrALAZINE HCL 20 MG/ML VIAL 10 MG IV PUSH (06:57)
[2023-08-01] MEDS: LEVOTHYROXINE SODIUM 88 MCG TABLET PO (06:58)
--- NOTE | 2023-08-01 07:51 | PM.CNOR ---
Assessment and Plan Assessment and plan (1) Closed intertrochanteric fracture of left hip: Qualifiers: Encounter type: initial encounter Fracture alignment: displaced Qualified Code(s): S72.142A - Displaced intertrochanteric fracture of left femur, initial encounter for closed fracture Code(s): S72.142A - Displaced intertrochanteric fracture of left femur, initial encounter for closed fracture Status: Acute Assessment and Plan: New patient evaluation for chief complaint left hip fracture. History, physical exam and radiographs reviewed with the patient. Discussed the condition, nature, etiology and course of natural history with the patient. Treatment options including surgical and nonoperative treatment were reviewed. Risks and benefits of each as well as alternatives reviewed. The patient's questions were answered. Conservative treatment ice, pain control. DVT prophylaxis with mechanical SCDs. Plan Discussed nonoperative and operative treatment options with the patient. Risks and benefits of each as well as alternatives were reviewed. All of the patient's questions were answered. The risks of surgery reviewed including but not limited to: Neurovascular damage, wound complication, infection, blood clot, pulmonary embolus, stroke, myocardial infarction, and anesthetic risks up to and including . Continued pain and possible dysfunction were explained. Specific risks of the procedure including later recurrence of deformity. No guarantees were offered. If hardware used, discussed risk of failure/ breakage and possible need for removal. If complications occur, the patient understands the need for further treatment, possible further surgery. Patient verbalizes understanding and wishes to proceed. PLAN: Left hip reduction with trochanteric nail History of Present Illness HPI Consult date: 08/01/23 Requesting physician: Jack Quintanilla MD Chief complaint: Hip Fracture Narrative: 87-year-old woman with dementia, residential resident with fall on the left side. Left hip and leg deformity and pain. Brought the emergency room and found to have left hip fracture. Admitted for further care. Complains of left hip pain. Review of Systems Constitutional: Constitutional: Denies fever(s) Eyes: Eyes: Denies blurry vision ENT: Reports Normal hearing present Cardiovascular: Cardiovascular: Denies chest pain and Denies dyspnea Respiratory: Respiratory: Denies dyspnea and Denies wheezing Gastrointestinal: Gastrointestinal: Denies abdominal pain Genitourinary: Genitourinary: Denies urinary urgency Musculoskeletal: Musculoskeletal: Reports as per HPI and Denies numbness Integumentary/Breasts: Skin/Breast: Denies changing lesions and Denies sores Neurologic: Reports Normal hearing present, Denies behavioral changes, Denies confusion, Denies numbness and Denies convulsions Psychiatric: Psychiatric: Denies behavioral changes, Denies confusion and Denies hallucinations Endocrine: Endocrine: Denies heat intolerance Hematologic/Lymphatic: Hematologic/Lymphatic: Denies easy bleeding Allergic/Immunologic: Allergic/Immunologic: Denies wheezing PMFSH Past Medical History Medical History High cholesterol (Unknown) History of shingles 03/2021 History of squamous cell carcinoma HTN (hypertension) (Unknown) Hyperlipidemia Hypothyroidism (~11/28/21) Skin change Snoring Urinary incontinence, mixed Surgical History Surgical History History of hysterectomy History of parathyroidectomy Status post cataract extraction of both eyes with insertion of intraocular lens Family History Family History Other Unknown family medical history Social History Social History Social History
--- NOTE | 2023-08-01 09:20 | WPDHPUPDATE1 ---
History and Physical Update Update Date/Time: 08/01/23 09:20 History and Physical has been reviewed, including an updated exam of the patient. There are NO changes in the patient's condition. Risks, benefits, and alternatives have been discussed and questions answered. Patient agrees to proceed with procedure.
[2023-08-01 10:26] LABS: Basophils Percent Auto 0.3 % (0.2-1.2); Eosinophils Absolute Auto 0.1 K/mm3 (0-0.3); Hematocrit 35.8 % (37.0-47.0); Hemoglobin 11.9 g/dL (12.0-15.0); Immature Granulocyte Absolute 0.03 K/mm3 (0.00-0.031); Immature Granulocyte Percent A 0.5 % (0-0.5); Lymphocytes Absolute Auto 0.71 K/mm3 (0.9-3.2); Lymphocytes Percent Auto 12.1 % (18.3-44.2); Mean Corpuscular HGB Conc 33.2 g/dl (32-36); Mean Corpuscular Hemoglobin 30.7 pg (26-34); Mean Corpuscular Volume 92.5 fl (80-100); Mean Platelet Volume 10.3 fl (7.4-10.4); Monocytes Absolute Auto 0.8 K/mm3 (0.1-0.6); Monocytes Percent Auto 13.1 % (2.6-8.5); Neutrophils Absolute Auto 4.2 K/mm3 (1.3-6.7); Platelet Count Result 181 k/mm3 (150-375); Red Blood Count 3.87 M/mm3 (4.2-5.4); White Blood Count 5.9 K/mm3 (4.5-10.0)
[2023-08-01] MEDS: ACETAMINOPHEN 500 MG TABLET 1000 MG PO (10:38)
[2023-08-01] MEDS: KETOROLAC 15 MG/ML VIAL (*BKC) IV PUSH (10:46)
[2023-08-01] MEDS: METOPROLOL TARTRATE 25 MG TABLET PO (10:46)
[2023-08-01] MEDS: TRANEXAMIC ACID 1,000MG/ISO100 1,000 MG/100 ML BAG 200 MG IVPB (12:12)
[2023-08-01] MEDS: ceFAZolin 2 GM/D5W 50 ML 2 GM/50 ML BAG IVPB (12:12)
--- NOTE | 2023-08-01 12:21 | WPDANESEPPF ---
Anes - Initial Pre Proc Eval Procedure: Operation Date: 08/01/23 10:00 Proposed Procedures p Intertrochanteric Nail(Left) - Kalyan Ireland MD Date/Time: 08/01/23 12:21 Surgeon: Dennys Lai MD Pre Op Diagnosis: Hip Fracture Patient Data Age: 87 Gender: F Height: 1.57 m Weight: 57.5 kg Last Vital Signs Temp 37.2 C 08/01/23 06:00 Pulse 92 08/01/23 10:46 Resp 18 08/01/23 06:00 BP 180/106 H 08/01/23 06:00 Pulse Ox 95 08/01/23 06:00 O2 Del Method Room Air 07/31/23 22:10 Allergies Allergy/AdvReac Type Severity Reaction Status Date / Time No Known Allergies Allergy Verified 07/31/23 16:16 Home Medications Medication Instructions Recorded Confirmed Type cholecalciferol (vitamin D3) 25 25 mcg PO DAILY #90 caps 06/19/22 07/31/23 Rx mcg (1,000 unit) capsule duloxetine 30 mg capsule,delayed 30 mg PO DAILY #30 caps 06/19/22 07/31/23 Rx release (Cymbalta) lisinopril 5 mg tablet 5 mg PO DAILY #90 tabs 06/19/22 07/31/23 Rx magnesium 200 mg tablet 400 mg PO DAILY #90 tabs 06/19/22 07/31/23 Rx metoprolol tartrate 25 mg tablet 25 mg PO DAILY #60 tabs 06/19/22 07/31/23 Rx omega-3 fatty acids 1,000 mg 1,000 mg PO DAILY #90 caps 06/19/22 07/31/23 Rx capsule ascorbic acid (vitamin C) 1,000 mg 1 g PO DAILY #30 tabs 07/23/22 07/31/23 Rx tablet Synthroid 88 mcg tablet 88 mcg PO DAILY #90 tabs 07/24/22 07/31/23 Rx (levothyroxine) mecobalamin (vitamin B12) 1,000 1,000 mcg PO DAILY #30 tabs 12/23/22 07/31/23 Rx mcg chewable tablet sodium chloride 5 % eye drops 1 drp EACH EYE TID dry eye(s) #15 04/15/23 07/31/23 Rx mL ibuprofen 200 mg capsule 200 mg PO TID PRN Pain (Scale 07/03/23 07/31/23 Rx Score 1-3) #90 caps dextran 70-hypromellose eye drops 1 drp EACH EYE HS 07/31/23 07/31/23 History (Artificial Tears (dextran 70-hypromellose) eye drops) Laboratory Tests 07/31/23 08/01/23 08/01/23 16:55 04:23 10:16 WBC 5.0 K/mm3 5.9 K/mm3 (4.5-10.0) (4.5-10.0) RBC 3.47 L M/mm3 3.87 L M/mm3 (4.2-5.4) (4.2-5.4) Hgb 10.8 L g/dL 11.9 L g/dL (12.0-15.0) (12.0-15.0) Hct 32.3 L % 35.8 L % (37.0-47.0) (37.0-47.0) MCV 93.1 fl 92.5 fl (80-100) (80-100) MCH 31.1 pg 30.7 pg (26-34) (26-34) MCHC 33.4 g/dl 33.2 g/dl (32-36) (32-36) RDW 13.4 % 13.0 % (11.5-14.5) (11.5-14.5) Plt Count 189 k/mm3 181 k/mm3 (150-375) (150-375) MPV 10.1 fl 10.3 fl (7.4-10.4) (7.4-10.4) Immature Gran % (Auto) 0.6 H % 0.5 % (0-0.5) (0-0.5) Neut % (Auto) 61.2 % 72.0 % (45.5-73.1) (45.5-73.1) Lymph % (Auto) 17.0 L % 12.1 L % (18.3-44.2) (18.3-44.2) [place] % (Auto) 20.2 H % 13.1 H % (2.6-8.5) (2.6-8.5) Eos % (Auto) 0.4 % 2.0 % (0-4.4) (0-4.4) Baso % (Auto) 0.6 % 0.3 % (0.2-1.2) (0.2-1.2) Lymph # (Auto) 0.84 L K/mm3 0.71 L K/mm3 (0.9-3.2) (0.9-3.2) [place] # (Auto) 1.0 H K/mm3 0.8 H K/mm3 (0.1-0.6) (0.1-0.6) Eos # (Auto) 0.0 K/mm3 0.1 K/mm3 (0-0.3) (0-0.3) Baso # (Auto) 0.0 K/mm3 0.0 K/mm3 (0.0-0.1) (0.0-0.1) Abs Immat Gran (auto) 0.03 K/mm3 0.03 K/mm3 (0.00-0.031) (0.00-0.031) Absolute Neuts (auto) 3.0 K/mm3 4.2 K/mm3 (1.3-6.7) (1.3-6.7) Absolute Nucleated RBC 0.0 K/mm3 0.0 K/mm3 (0.0-0.012) (0.0-0.012) Nucleated RBC % 0.0 % 0.0 % (0.0-0.2) (0.0-0.2) PT 13.4 Seconds (11.1-14.7) INR 1.0 APTT 31.0 SECONDS (22.3-36.8) Sodium 131 L mmol/L (137-145) Potassium 3.9 mmol/L (3.4-5.0) Chloride 97 L mmol/L (98-107) Carbon Dioxide 28 mmol/L (22-30) Anion Gap 6 L mmol/L (8-16) BUN 15 mg/dL (7-17) Creatinine 0.50 L mg/dL (0.7-1.0) Estim Creat Clear Calc 62 ml/min Estimated GFR > 60 (59 - ) Glucose 120 H
[2023-08-01 12:31] LABS: Alanine Aminotransferase 25 U/L (6-35); Albumin Level 3.8 g/dL (3.5-5.1); Alkaline Phosphatase 80 U/L (38-126); Anion Gap 6 mmol/L (8-16); Aspartate Amino Transferase 43 U/L (14-36); Bilirubin,Total 0.5 mg/dL (0.2-1.3); Blood Urea Nitrogen 10 mg/dL (7-17); Calcium 8.3 mg/dL (8.4-10.2); Carbon Dioxide 27 mmol/L (22-30); Chloride 97 mmol/L (98-107); Estimated CRCL calculation 66 ml/min; Estimated Glomerular Filt Rate > 60; Glucose 128 mg/dL (65-110); Potassium 3.3 mmol/L (3.4-5.0); Sodium 130 mmol/L (137-145)
[2023-08-01] MEDS: BUPIVACAINE/EPINEPHRINE 0.5% 50 ML VIAL INFILTRATE (12:40)
--- NOTE | 2023-08-01 13:41 | P.OP_ITS ---
Procedure Note - Detailed Date of Procedure 08/01/23 Pre-op Diagnosis Hip Fracture Post-op Diagnosis Same Procedure Performed Left hip trochanteric nail Surgeon Kalyan Ireland MD [employer] 1st assistant professor of philosophy Anesthesia General Indications 87-year-old woman fell and sustained a left hip intertrochanteric fracture. Patient and family desire operative treatment. Description of Procedure After informed consent the operative extremity was marked in the preoperative holding area. Patient received intravenous antibiotics. The patient was taken to the operative room, placed in the supine position, general anesthesia induced by the anesthesia team, and was placed on a fracture table with longitudinal traction applied to the left leg. The hip fracture was reduced to near anatomic position and verified with image intensification. A time-out was performed confirming the patient, site of the surgery and plan. The left lower extremity was prepped and draped sterilely from the knee to the iliac crest region using a ChloraPrep skin solution. Incision was made just proximal to greater trochanter down to the subcutaneous tissues. Hemostasis controlled with electrocautery. Blunt dissection through the fascia to the tip of the greater trochanter. A starter awl was placed at the tip of the greater trochanter into the medullary canal of the femur. This was checked with image intensification and was in good position. Intramedullary guide ellie positioned. A one-step hand reaming done proximally. Intramedullary canal was reamed with a 12.5 millimeter flexible reamer. Neck angle selected off of preoperative radiographs temp plating. 125 degree 12 X 200 mm Nail opened on the back table and assembled. This was then inserted over the guide ellie to the correct depth. Guide ellie removed. Lag screw was then placed with a stab incision over the lateral femur using a 10 blade knife. Blunt dissection down to the lateral side of the bone. Soft tissue protectors placed. Guide pin placed in the center center position of the femoral head and measured. 105 millimeter x 10 millimeter lag screw placed to correct depth and verified with image intensification. Traction released from the leg and compression of the fracture performed with the external compression device. Distal locking of the nail necessary due to instability in the intramedullary canal and proximal femur. Stab incision made lateral mid thigh with the placement guide. Blunt dissection down lateral side of the femur. Soft tissue protector inserted. Image intensification used to guide drill which was placed through the locking hole. Distal femur measured and the appropriate size screw placed. Image intensification confirmed the placement through the locking hole. Final image intensification confirm reduction of the fracture and placement of the jani dware. Wounds then thoroughly irrigated with antibiotic solution. Fascia repaired with 0 Vicryl interrupted suture. Subcutaneous tissue repaired with 00 Vicryl interrupted suture and skin approximated with 3-0 Monocryl interrupted suture and Dermabond. Sterile dressings applied. Patient then awoke from anesthesia, extubated, taken to recovery room stable condition. All sponge, needle and instrument counts correct at the end the case. Implants Arthrex trochanteric nail 12 mm x 200 mm, 105 mm lag screw, 36 mm distal locking screw. Estimated Blood Loss 100 Drains No Packing No Pathology None sent Complications None Condition Stable Disposition PACU [facility] Billing Surgery - Charge Forward: Surgery Billing ([id number])
--- NOTE | 2023-08-01 13:53 | PM.IMPN ---
Progress Note: A&P Assessment and Plan (1) Closed intertrochanteric fracture of left hip: Qualifiers: Encounter type: initial encounter Fracture alignment: displaced Qualified Code(s): S72.142A - Displaced intertrochanteric fracture of left femur, initial encounter for closed fracture Code(s): S72.142A - Displaced intertrochanteric fracture of left femur, initial encounter for closed fracture Status: Acute Assessment and Plan: Patient has a left intertrochanteric fracture. Analgesics p.r.n.. Orthopedic surgery has been consulted. Surgery performed on 08/01/2023 DVT prophylaxis come PT and OT per Orthopedic team (2) Hypothyroidism: Onset Date: ~11/28/21 Qualifiers: Hypothyroidism type: unspecified Qualified Code(s): E03.9 - Hypothyroidism, unspecified Code(s): E03.9 - Hypothyroidism, unspecified Status: Chronic Assessment and Plan: continue Synthroid (3) HTN (hypertension): Onset Date: Unknown Qualifiers: Hypertension type: primary hypertension Qualified Code(s): I10 - Essential (primary) hypertension Code(s): I10 - Essential (primary) hypertension Status: Chronic Assessment and Plan: Continue home lisinopril and metoprolol. Hydralazine p.r.n. with systolic BP greater than 180 (4) Urinary incontinence, mixed: Code(s): N39.46 - Mixed incontinence Status: Acute Assessment and Plan: The patient has chronic urinary incontinence. Jones catheter is in place due to immobility and pain currently. Will monitor urine output closely. Patient is having adequate urine output at this time. (5) COVID-19: Code(s): U07.1 - COVID-19 Status: Acute Assessment and Plan: patient presented with a cough and was tested for COVID. Test came back positive. Contact isolation precautions Patient not requiring any oxygen at this time. Hold off on remdesivir and dexamethasone. Continue to monitor a.m. labs Subjective Date/time seen: 08/01/23 13:53 Interval history: patient complains of hip pain as well as a cough and sore throat. Explained her that her upper respiratory symptoms are likely from her having COVID. patient plan for surgery this afternoon. Patient lives at [facility] and will likely return there with therapy. Exam Narrative: GENERAL: Comfortable, no acute distress HENMT: moist mucous membranes EYES: EOM intact b/l NECK: no lymphadenopathy RESPIRATORY: clear to auscultation CARDIO: RRR GI: soft, nontender, bowel sounds present SKIN: no rashes EXTREMITIES: Poor range of motion of bilateral hips, skin tear on left middle finger that has been wrapped with gauze. Objective Data Vital Signs Vital Signs: Vital Signs - 24 hr 07/31/23 16:03 07/31/23 16:11 07/31/23 16:16 Temperature 98.4 F Pulse Rate 72 66 65 Respiratory Rate 12 16 14 Blood Pressure 181/73 H 181/73 H Pulse Oximetry 96 95 97 Oxygen Delivery Room Air 07/31/23 16:17 07/31/23 16:30 07/31/23 16:31 Temperature Pulse Rate 88 69 65 Respiratory Rate 15 16 19 Blood Pressure 172/93 H Pulse Oximetry 95 96 95 Oxygen Delivery 07/31/23 16:45 07/31/23 17:00 07/31/23 17:01 Temperature Pulse Rate 65 85 67 Respiratory Rate 17 15 18 Blood Pressure 162/65 H Pulse Oximetry 97 98 97 Oxygen Delivery 07/31/23 18:29 07/31/23 18:30 07/31/23 18:41 Temperature Pulse Rate Respiratory Rate Blood Pressure 177/77 H Pulse Oximetry 93 96 94 Oxygen Delivery 07/31/23 18:45 07/31/23 18:46 07/31/23 22:00 Temperature 97.7 F Pulse Rate 97 Respiratory Rate 20 Blood Pressure 173/76 H 182/91 H Pulse Oximetry 94 94 95 Oxygen Delivery 08/01/23 06:00 07/31/23 22:10 08/01/23 10:46 Temperature 98.9 F Pulse Rate 84 84 92 Respiratory Rate 18 18 Blood Pressure 180/106 H Pulse Oximetry 95 95 Oxygen Delivery Room Air
[2023-08-01] MEDS: LACTATED RINGERS 1,000 ML 30 ML IV CONT (13:55)
--- NOTE | 2023-08-01 15:34 | PCPTNOTE ---
check on patient with nursing, Jerri reports patient just came on the floor and would be better to wait until tomorrow. Will check on patient tomorrow AM.
[2023-08-01] MEDS: SENNA/DOCUSATE SODIUM TABLET 2 TAB PO (18:21)
[2023-08-01] MEDS: OMEGA 3 POLYUNSAT FATTY ACIDS 1 GM CAP PO (18:22)
[2023-08-01] MEDS: DULoxetine HCL 30 MG CAPSULE.DR PO (18:22)
[2023-08-01] MEDS: CYANOCOBALAMIN 1,000 MCG TABLET 1000 MCG PO (18:22)
[2023-08-01] MEDS: CHOLECALCIFEROL 1,000 UNITS TABLET 1000 UNITS PO (18:25)
[2023-08-01] MEDS: lisinopriL 5 MG TABLET PO (18:25)
[2023-08-01] MEDS: MAGNESIUM OXIDE 400 MG TABLET PO (18:25)
[2023-08-01] MEDS: CALCIUM CARBONATE (OSCAL) 500 MG TABLET 600 MG PO (18:29)
[2023-08-01] MEDS: ARTIFICIAL TEARS OPHTH SOLN 15 ML BOTTLE 1 DROP EACH EYE (21:09)
[2023-08-02] VITALS (8 sets, daily range): BP systolic 92–155; BP diastolic 49–79; PULSE 52–93; RESP 16–20; TEMP 35.9–37.2; O2SAT 93–97
[2023-08-02] MEDS: MORPHINE SULFATE (*CRX) 4 MG/ML INJ 2 MG IV PUSH (00:48)
[2023-08-02] MEDS: LEVOTHYROXINE SODIUM 88 MCG TABLET PO (05:06)
[2023-08-02 07:22] LABS: Basophils Percent Auto 0.1 % (0.2-1.2); Hematocrit 32.6 % (37.0-47.0); Hemoglobin 10.5 g/dL (12.0-15.0); Immature Granulocyte Absolute 0.03 K/mm3 (0.00-0.031); Immature Granulocyte Percent A 0.3 % (0-0.5); Lymphocytes Absolute Auto 0.93 K/mm3 (0.9-3.2); Lymphocytes Percent Auto 10.7 % (18.3-44.2); Mean Corpuscular HGB Conc 32.2 g/dl (32-36); Mean Corpuscular Hemoglobin 30.5 pg (26-34); Mean Corpuscular Volume 94.8 fl (80-100); Mean Platelet Volume 10.2 fl (7.4-10.4); Monocytes Absolute Auto 0.9 K/mm3 (0.1-0.6); Monocytes Percent Auto 10.7 % (2.6-8.5); Neutrophils Absolute Auto 6.8 K/mm3 (1.3-6.7); Neutrophils Percent Auto 78.2 % (45.5-73.1); Platelet Count Result 198 k/mm3 (150-375); Red Blood Count 3.44 M/mm3 (4.2-5.4); White Blood Count 8.7 K/mm3 (4.5-10.0)
[2023-08-02 07:38] LABS: Alanine Aminotransferase 26 U/L (6-35); Albumin Level 3.5 g/dL (3.5-5.1); Alkaline Phosphatase 67 U/L (38-126); Anion Gap 7 mmol/L (8-16); Aspartate Amino Transferase 56 U/L (14-36); Bilirubin,Total 0.6 mg/dL (0.2-1.3); Blood Urea Nitrogen 16 mg/dL (7-17); Calcium 8.5 mg/dL (8.4-10.2); Carbon Dioxide 27 mmol/L (22-30); Chloride 98 mmol/L (98-107); Estimated CRCL calculation 46 ml/min; Estimated Glomerular Filt Rate > 60; Glucose 109 mg/dL (65-110); Potassium 3.6 mmol/L (3.4-5.0); Sodium 132 mmol/L (137-145)
--- NOTE | 2023-08-02 08:18 | WPDANESPN ---
Anes - Prog Note Post-Op Date/Time: 08/02/23 08:18 Cardiovascular status: normal Respiratory status: normal Airway patency: baseline Mental status: baseline Post-Op hydration status: normal Vital Signs: Last Vital Signs Temp 36.7 C 08/02/23 07:59 Pulse 75 08/02/23 07:59 Resp 16 08/02/23 07:59 BP 143/67 H 08/02/23 07:59 Pulse Ox 95 08/02/23 07:59 O2 Del Method Room Air 08/02/23 06:11 O2 Flow Rate 6 08/01/23 13:59 Pain Score (VAS): 12/12 I/O: Intake & Output 08/01/23 08/02/23 08/02/23 23:59 07:59 15:59 Intake Total 100 200 Output Total 500 200 Balance -400 0 Laboratory Tests 08/02/23 05:00 08/02/23 07:00 08/01/23 08/02/23 08/02/23 10:16 05:00 07:00 WBC 5.9 8.7 RBC 3.87 L 3.44 L Hgb 11.9 L 10.5 L Hct 35.8 L 32.6 L MCV 92.5 94.8 MCH 30.7 30.5 MCHC 33.2 32.2 RDW 13.0 13.0 Plt Count 181 198 MPV 10.3 10.2 Immature Gran % (Auto) 0.5 0.3 Neut % (Auto) 72.0 78.2 H Lymph % (Auto) 12.1 L 10.7 L [place] % (Auto) 13.1 H 10.7 H Eos % (Auto) 2.0 0.0 Baso % (Auto) 0.3 0.1 L Lymph # (Auto) 0.71 L 0.93 [place] # (Auto) 0.8 H 0.9 H Eos # (Auto) 0.1 0.0 Baso # (Auto) 0.0 0.0 Abs Immat Gran (auto) 0.03 0.03 Absolute Neuts (auto) 4.2 6.8 H Absolute Nucleated RBC 0.0 0.0 Nucleated RBC % 0.0 0.0 Sodium 130 L 132 L Potassium 3.3 L 3.6 Chloride 97 L 98 Carbon Dioxide 27 27 Anion Gap 6 L 7 L BUN 10 D 16 Creatinine 0.40 L 0.60 L Estim Creat Clear Calc 66 46 Estimated GFR > 60 > 60 Glucose 128 H 109 Calcium 8.3 L 8.5 Total Bilirubin 0.5 0.6 AST 43 H 56 H ALT 25 26 Alkaline Phosphatase 80 67 Total Protein 7.0 7.0 Albumin 3.8 3.5 Post-procedural complaints: none Patient Feedback: Patient satisfied with anesthetic care.
--- NOTE | 2023-08-02 09:09 | PM.PNORT ---
Progress Note: A&P Assessment and Plan (1) Closed intertrochanteric fracture of left hip: Qualifiers: Encounter type: subsequent encounter Fracture alignment: displaced Fracture healing: with routine healing Qualified Code(s): S72.142D - Displaced intertrochanteric fracture of left femur, subsequent encounter for closed fracture with routine healing Code(s): S72.142A - Displaced intertrochanteric fracture of left femur, initial encounter for closed fracture Status: Acute Assessment and Plan: postoperative day 1 left hip fracture Treated with trochanteric nail. Operative treatment reviewed with the patient. PT/OT with weight-bearing as tolerated. Pain control. DVT prophylaxis with aspirin. Disposition when stable. Subjective Subjective Date/Time Seen: 08/02/23 09:09 Post Op day: 1 Principal diagnosis: Left hip intertrochanteric fracture Interval history: Patient resting comfortably. Awake and alert. Less confused today. Oriented to person, place and time. Complains of minimal pain left hip. Exam Const: General: comfortable; No acute distress Resp: Effort & Inspection: normal respiratory effort and no audible wheezes Extrem: Right lower extremity: lower leg ( Negative Homans sign), ankle Details: normal ROM ( dorsiflexion and plantar flexion intact) and foot Details: vascular exam Details: dorsalis pedis pulse present and normal capillary refill, tendon exam Details: active flexion normal and active extension normal and motor-sensory exam Details: light-touch normal Location: in all toes; no edema Left lower extremity: normal to inspection, ankle Details: normal ROM and foot Details: vascular exam Details: dorsalis pedis pulse present and normal capillary refill and motor-sensory exam light-touch normal in all toes; no edema Objective Data Vital Signs Vital Signs: Vital Signs - 24 hr 08/01/23 10:46 08/01/23 13:44 08/01/23 13:59 Temperature 97.7 F Pulse Rate 92 79 69 Respiratory Rate 12 20 Blood Pressure 171/74 H 167/73 H Pulse Oximetry 100 100 Oxygen Delivery Simple Face Mask Simple Face Mask Oxygen Flow Rate 6 6 08/01/23 14:15 08/01/23 14:30 08/01/23 14:45 Temperature 98 F 98 F Pulse Rate 71 68 60 Respiratory Rate 12 14 14 Blood Pressure 134/63 130/62 127/60 Pulse Oximetry 92 94 92 Oxygen Delivery Room Air Room Air Room Air Oxygen Flow Rate 08/01/23 15:30 08/01/23 10:30 08/01/23 15:15 Temperature 97.8 F 98.0 F Pulse Rate 71 69 Respiratory Rate 16 18 Blood Pressure 113/58 L 134/50 L Pulse Oximetry 93 90 Oxygen Delivery Room Air Oxygen Flow Rate 08/01/23 16:00 08/01/23 17:00 08/01/23 20:40 Temperature 97.5 F L 97.5 F L 98.2 F Pulse Rate 75 63 74 Respiratory Rate 16 16 18 Blood Pressure 123/82 123/63 126/66 Pulse Oximetry 91 93 94 Oxygen Delivery Oxygen Flow Rate 08/01/23 20:00 08/02/23 00:40 08/02/23 06:11 Temperature 98.9 F Pulse Rate 93 Respiratory Rate 18 Blood Pressure 155/79 H Pulse Oximetry 97 Oxygen Delivery Room Air Room Air Oxygen Flow Rate 08/02/23 04:40 08/02/23 07:59 Temperature 97.7 F 98.1 F Pulse Rate 86 75 Respiratory Rate 18 16 Blood Pressure 148/58 H 143/67 H Pulse Oximetry 97 95 Oxygen Delivery Oxygen Flow Rate Intake/Output Intake/Output: Intake & Output 07/30/23 07/31/23 08/01/23 08/02/23 23:59 23:59 23:59 23:59 Intake Total 300 318 Output Total 800 2050 200 Balance -800 -1750 118 Meds/Results Medications: Active Medications Generic Name Dose Route Start Last Admin Trade Name Freq PRN Reason Stop Dose Admin Acetaminophen 650 mg 07/31/23 18:52 Acetaminophen 325 Mg Tablet PO Q4H PRN Mild Pain (1-3) or Fever Hydrocodone Bitart/Acetaminophen 1 tab 07/31/23 18:52 Hydrocodone/Acetaminophen (*Crx) 5-325 Mg Tablet PO Q4H PRN Pain Rated 4-6 Artificial Tears 1 drop 08/01/23 21:00 08/01/23 21:09 Artifi
[2023-08-02] MEDS: DULoxetine HCL 30 MG CAPSULE.DR PO (09:18)
[2023-08-02] MEDS: MAGNESIUM OXIDE 400 MG TABLET PO (09:18)
[2023-08-02] MEDS: lisinopriL 5 MG TABLET PO (09:19)
[2023-08-02] MEDS: SENNA/DOCUSATE SODIUM TABLET 2 TAB PO ×2 (09:19→16:53)
[2023-08-02] MEDS: HYDROcodone/acetaminophen (*CRX) 5-325 MG TABLET 1 TAB PO ×2 (09:19→15:05)
[2023-08-02] MEDS: OMEGA 3 POLYUNSAT FATTY ACIDS 1 GM CAP PO (09:19)
[2023-08-02] MEDS: METOPROLOL TARTRATE 25 MG TABLET PO (09:19)
[2023-08-02] MEDS: ASPIRIN 325 MG ENTERIC TABLET PO (09:19)
[2023-08-02] MEDS: CHOLECALCIFEROL 1,000 UNITS TABLET 1000 UNITS PO (09:19)
[2023-08-02] MEDS: CYANOCOBALAMIN 1,000 MCG TABLET 1000 MCG PO (09:19)
[2023-08-02] MEDS: polyethylene glycoL 3350 17 GM POWD.PACK PO (09:20)
[2023-08-02] MEDS: CALCIUM CARBONATE (OSCAL) 500 MG TABLET 600 MG PO (12:50)
--- NOTE | 2023-08-02 13:28 | PM.IMPN ---
Progress Note: A&P Assessment and Plan (1) Closed intertrochanteric fracture of left hip: Qualifiers: Encounter type: subsequent encounter Fracture alignment: displaced Fracture healing: with routine healing Qualified Code(s): S72.142D - Displaced intertrochanteric fracture of left femur, subsequent encounter for closed fracture with routine healing Code(s): S72.142A - Displaced intertrochanteric fracture of left femur, initial encounter for closed fracture Status: Acute Assessment and Plan: Patient has a left intertrochanteric fracture. Analgesics p.r.n.. Orthopedic surgery has been consulted. Surgery performed on 08/01/2023 DVT prophylaxis come PT and OT per Orthopedic team (2) Hypothyroidism: Onset Date: ~11/28/21 Qualifiers: Hypothyroidism type: unspecified Qualified Code(s): E03.9 - Hypothyroidism, unspecified Code(s): E03.9 - Hypothyroidism, unspecified Status: Chronic Assessment and Plan: continue Synthroid (3) HTN (hypertension): Onset Date: Unknown Qualifiers: Hypertension type: primary hypertension Qualified Code(s): I10 - Essential (primary) hypertension Code(s): I10 - Essential (primary) hypertension Status: Chronic Assessment and Plan: Continue home lisinopril and metoprolol. Hydralazine p.r.n. with systolic BP greater than 180 (4) Urinary incontinence, mixed: Code(s): N39.46 - Mixed incontinence Status: Acute Assessment and Plan: The patient has chronic urinary incontinence. Jones catheter is in place due to immobility and pain currently. Will monitor urine output closely. Patient is having adequate urine output at this time. (5) COVID-19: Code(s): U07.1 - COVID-19 Status: Acute Assessment and Plan: patient presented with a cough and was tested for COVID. Test came back positive. Contact isolation precautions Patient not requiring any oxygen at this time. Hold off on remdesivir and dexamethasone. Continue to monitor a.m. labs Subjective Date/time seen: 08/02/23 13:28 Interval history: Patient feeling well. She does have a mild cough and a scratchy throat but otherwise fine. She continues to work with PT and OT. She does have hip pain in the left hip. Continue analgesics as needed. Exam Narrative: GENERAL: Comfortable, no acute distress HENMT: moist mucous membranes EYES: EOM intact b/l NECK: no lymphadenopathy RESPIRATORY: clear to auscultation CARDIO: RRR GI: soft, nontender, bowel sounds present SKIN: no rashes EXTREMITIES: Poor range of motion of bilateral hips, skin tear on left middle finger that has been wrapped with gauze. Objective Data Vital Signs Vital Signs: Vital Signs - 24 hr 08/01/23 13:44 08/01/23 13:59 08/01/23 14:15 Temperature 97.7 F 98 F Pulse Rate 79 69 71 Respiratory Rate 12 20 12 Blood Pressure 171/74 H 167/73 H 134/63 Pulse Oximetry 100 100 92 Oxygen Delivery Simple Face Mask Simple Face Mask Room Air Oxygen Flow Rate 6 6 08/01/23 14:30 08/01/23 14:45 08/01/23 15:30 Temperature 98 F 97.8 F Pulse Rate 68 60 71 Respiratory Rate 14 14 16 Blood Pressure 130/62 127/60 113/58 L Pulse Oximetry 94 92 93 Oxygen Delivery Room Air Room Air Oxygen Flow Rate 08/01/23 15:15 08/01/23 16:00 08/01/23 17:00 Temperature 98.0 F 97.5 F L 97.5 F L Pulse Rate 69 75 63 Respiratory Rate 18 16 16 Blood Pressure 134/50 L 123/82 123/63 Pulse Oximetry 90 91 93 Oxygen Delivery Oxygen Flow Rate 08/01/23 20:40 08/01/23 20:00 08/02/23 00:40 Temperature 98.2 F 98.9 F Pulse Rate 74 93 Respiratory Rate 18 18 Blood Pressure 126/66 155/79 H Pulse Oximetry 94 97 Oxygen Delivery Room Air Oxygen Flow Rate 08/02/23 06:11 08/02/23 04:40 08/02/23 07:59 Temperature 97.7 F 98.1 F Pulse Rate 86 75 Respiratory Rate 18 16 Blood Pressure 148/58 H 14
[2023-08-02] MEDS: ARTIFICIAL TEARS OPHTH SOLN 15 ML BOTTLE 1 DROP EACH EYE (20:52)
[2023-08-03] MEDS: LEVOTHYROXINE SODIUM 88 MCG TABLET PO (05:34)
[2023-08-03] MEDS: HYDROcodone/acetaminophen (*CRX) 5-325 MG TABLET 1 TAB PO (05:34)
[2023-08-03 06:02] VITALS: BP 123/51; PULSE 77; RESP 20; TEMP 36.3; O2SAT 94
--- NOTE | 2023-08-03 07:31 | PM.PNORT ---
Progress Note: A&P Assessment and Plan (1) Closed intertrochanteric fracture of left hip: Qualifiers: Encounter type: subsequent encounter Fracture alignment: displaced Fracture healing: with routine healing Qualified Code(s): S72.142D - Displaced intertrochanteric fracture of left femur, subsequent encounter for closed fracture with routine healing Code(s): S72.142A - Displaced intertrochanteric fracture of left femur, initial encounter for closed fracture Status: Acute Assessment and Plan: postoperative day 2 left hip fracture Treated with trochanteric nail. PT/OT with weight-bearing as tolerated. Pain control. DVT prophylaxis with aspirin. Disposition- SNF vs [facility]. Subjective Subjective Date/Time Seen: 08/03/23 07:31 Post Op day: 2 Principal diagnosis: Left hip intertrochanteric fracture Interval history: Patient resting comfortably. Awake and alert. Less confused today. Oriented to person, place and time. Complains of minimal pain left hip. Exam Const: General: comfortable; No acute distress Resp: Effort & Inspection: normal respiratory effort and no audible wheezes Extrem: Right lower extremity: lower leg ( Negative Homans sign), ankle Details: normal ROM ( dorsiflexion and plantar flexion intact) and foot Details: vascular exam Details: dorsalis pedis pulse present and normal capillary refill, tendon exam Details: active flexion normal and active extension normal and motor-sensory exam Details: light-touch normal Location: in all toes; no edema Left lower extremity: normal to inspection, ankle Details: normal ROM and foot Details: vascular exam Details: dorsalis pedis pulse present and normal capillary refill and motor-sensory exam light-touch normal in all toes; no edema Objective Data Vital Signs Vital Signs: Vital Signs - 24 hr 08/02/23 07:59 08/02/23 08:40 08/02/23 09:19 Temperature 98.1 F Pulse Rate 75 77 Respiratory Rate 16 Blood Pressure 143/67 H Pulse Oximetry 95 Oxygen Delivery Room Air 08/02/23 10:19 08/02/23 12:00 08/02/23 09:00 Temperature 97.0 F L Pulse Rate 64 Respiratory Rate 16 Blood Pressure 92/51 L Pulse Oximetry 94 Oxygen Delivery Room Air Room Air 08/02/23 16:00 08/02/23 21:28 08/02/23 20:00 Temperature 96.7 F L 97.8 F Pulse Rate 52 L 71 Respiratory Rate 16 20 Blood Pressure 102/49 L 134/52 L Pulse Oximetry 96 96 Oxygen Delivery Room Air 08/02/23 23:55 08/03/23 06:02 Temperature 98.1 F 97.3 F L Pulse Rate 66 77 Respiratory Rate 20 20 Blood Pressure 130/51 L 123/51 L Pulse Oximetry 93 94 Oxygen Delivery Intake/Output Intake/Output: Intake & Output 07/31/23 08/01/23 08/02/23 08/03/23 23:59 23:59 23:59 23:59 Intake Total 300 676 100 Output Total 800 2050 300 450 Balance -800 -1750 376 -350 Meds/Results Medications: Active Medications Generic Name Dose Route Start Last Admin Trade Name Freq PRN Reason Stop Dose Admin Acetaminophen 650 mg 07/31/23 18:52 Acetaminophen 325 Mg Tablet PO Q4H PRN Mild Pain (1-3) or Fever Hydrocodone Bitart/Acetaminophen 1 tab 07/31/23 18:52 08/03/23 05:34 Hydrocodone/Acetaminophen (*Crx) 5-325 Mg Tablet PO 1 tab Q4H PRN Administration Pain Rated 4-6 Artificial Tears 1 drop 08/01/23 21:00 08/02/23 20:52 Artificial Tears Ophth Soln 15 Ml Bottle EACH EYE 1 drop HS TINY Administration Aspirin 325 mg 08/02/23 09:00 08/02/23 09:19 Aspirin 325 Mg Enteric Tablet PO 325 mg QAM TINY Administration Calcium Carbonate 600 mg 08/01/23 12:00 08/02/23 12:50 Calcium Carbonate (Oscal) 500 Mg Tablet PO 600 mg DAILY@1200 TINY Administration Cyanocobalamin 1,000 mcg 08/01/23 09:00 08/02/23 09:19 Cyanocobalamin 1,000 Mcg Tablet PO 08/31/23 08:59 1,000 mcg DAILY TINY Administration Duloxetine HCl 30 mg 08/01/23 09:00 08/02/23 09:18 Duloxetine Hcl 30 Mg Capsule.Dr PO 30 mg
[2023-08-03] MEDS: polyethylene glycoL 3350 17 GM POWD.PACK PO (08:35)
[2023-08-03] MEDS: CYANOCOBALAMIN 1,000 MCG TABLET 1000 MCG PO (08:36)
[2023-08-03] MEDS: METOPROLOL TARTRATE 25 MG TABLET PO (08:36)
[2023-08-03] MEDS: CHOLECALCIFEROL 1,000 UNITS TABLET 1000 UNITS PO (08:36)
[2023-08-03] MEDS: OMEGA 3 POLYUNSAT FATTY ACIDS 1 GM CAP PO (08:36)
[2023-08-03] MEDS: DULoxetine HCL 30 MG CAPSULE.DR PO (08:36)
[2023-08-03] MEDS: MAGNESIUM OXIDE 400 MG TABLET PO (08:36)
[2023-08-03] MEDS: lisinopriL 5 MG TABLET PO (08:36)
[2023-08-03] MEDS: SENNA/DOCUSATE SODIUM TABLET 2 TAB PO (08:36)
[2023-08-03] MEDS: ASPIRIN 325 MG ENTERIC TABLET PO (08:36)
--- NOTE | 2023-08-03 11:42 | PM.DS ---
DS: Admitting Diagnosis Discharge Date 08/03/23 Admitting Diagnosis L hip fracture, COVID DS: Discharge Diagnosis Discharge Diagnosis (1) Closed intertrochanteric fracture of left hip: Qualifiers: Encounter type: subsequent encounter Fracture alignment: displaced Fracture healing: with routine healing Qualified Code(s): S72.142D - Displaced intertrochanteric fracture of left femur, subsequent encounter for closed fracture with routine healing Code(s): S72.142A - Displaced intertrochanteric fracture of left femur, initial encounter for closed fracture Status: Acute (2) Hypothyroidism: Onset Date: ~11/28/21 Qualifiers: Hypothyroidism type: unspecified Qualified Code(s): E03.9 - Hypothyroidism, unspecified Code(s): E03.9 - Hypothyroidism, unspecified Status: Chronic (3) HTN (hypertension): Onset Date: Unknown Qualifiers: Hypertension type: primary hypertension Qualified Code(s): I10 - Essential (primary) hypertension Code(s): I10 - Essential (primary) hypertension Status: Chronic (4) Urinary incontinence, mixed: Code(s): N39.46 - Mixed incontinence Status: Acute (5) COVID-19: Code(s): U07.1 - COVID-19 Status: Acute DS: Summary Hospital Course Hospital Course: This is an 87-year-old female with past medical history of dementia, hypothyroidism and osteoporosis who presented to the ED on 07/31/2023 due to ground level fall resulting in left hip pain. Patient is from [facility]. She is at baseline a and O times 1-2. She was found to be coughing on admission and COVID test was performed which came back positive. Other than cough patient did not have any other symptoms of COVID. She denies shortness of breath or difficulty breathing. Lungs remain clear. Remdesivir and steroids were not initiated due to patient not requiring oxygen supplementation and lack of comorbidities. X-ray of the pelvis revealed a displaced intertrochanteric fracture of the left femur. Orthopedics consulted. Patient underwent a left hip trochanteric nail pending on 08/01/2023. PT OT and DVT prophylaxis per Orthopedics. Patient tolerating well postoperatively. Her pain is well managed. Plan to discharge back to [facility] for PT and OT. Labs and vital signs are stable and she is medically cleared for discharge at this time. Time Spent with Patient Time attestation: Total time spent providing and/or coordinating discharge services: Exam Narrative: GENERAL: Comfortable, no acute distress HENMT: moist mucous membranes EYES: EOM intact b/l NECK: no lymphadenopathy RESPIRATORY: clear to auscultation CARDIO: RRR GI: soft, nontender, bowel sounds present SKIN: no rashes EXTREMITIES: Poor range of motion of bilateral hips, skin tear on left middle finger that has been wrapped with gauze. Discharge Plan Discharge Attending physician on discharge: Joseph Curtis Consulting providers: Kalyan Ireland Discharging Clinician: Kayla Queen Patient Disposition: [place] Long Term/Asst Living Activity: may shower, no driving and follow weight bearing status Diet: as tolerated Wound Care Instructions: follow printed instructions Discharge Instructions: Postoperative Hip Fracture Instructions Dr. Kalyan Ireland [phone] Dressing to be changed daily with an island dressing beginning on post op day #2. May stop dressing changes at post op day #14. No sutures/mike will need to be removed. Can allow Dermabond to fall off naturally. Weight bearing: Weight bearing as tolerated. You may shower with your dressing but do not submerge in a bath tub. Do not drive or operate machinery until you are released by your surgeon. Do not walk without a walker for any reason until you are released by your surgeon. DVT prophylaxis x28 days post op. Continue to apply ice to the hip intermittently for
[2023-08-03 12:00] VITALS: BP 100/48; PULSE 50; RESP 16; TEMP 34.6; O2SAT 99
[2023-08-03] MEDS: CALCIUM CARBONATE (OSCAL) 500 MG TABLET 600 MG PO (14:01)
[2023-08-03] MEDS: ARTIFICIAL TEARS OPHTH SOLN 15 ML BOTTLE 1 DROP EACH EYE (20:47)
[2023-08-03] MEDS: MORPHINE SULFATE (*CRX) 4 MG/ML INJ 2 MG IV PUSH (20:54)
[2023-08-03 22:00] VITALS: BP 136/84; PULSE 87; RESP 22; TEMP 36.4; O2SAT 94
[2023-08-04] MEDS: LEVOTHYROXINE SODIUM 88 MCG TABLET PO (05:48)
[2023-08-04 08:15] LABS: Hematocrit 26.6 % (37.0-47.0); Hemoglobin 8.8 g/dL (12.0-15.0); Mean Corpuscular HGB Conc 33.1 g/dl (32-36); Mean Corpuscular Hemoglobin 30.6 pg (26-34); Mean Corpuscular Volume 92.4 fl (80-100); Mean Platelet Volume 10.7 fl (7.4-10.4); Platelet Count Result 193 k/mm3 (150-375); Red Blood Count 2.88 M/mm3 (4.2-5.4); Red Cell Distribution Width 12.9 % (11.5-14.5); White Blood Count 5.3 K/mm3 (4.5-10.0)
[2023-08-04 08:28] LABS: Anion Gap 4 mmol/L (8-16); Blood Urea Nitrogen 18 mg/dL (7-17); Calcium 7.7 mg/dL (8.4-10.2); Carbon Dioxide 29 mmol/L (22-30); Chloride 96 mmol/L (98-107); Estimated CRCL calculation 40 ml/min; Estimated Glomerular Filt Rate > 60; Glucose 127 mg/dL (65-110); Potassium 3.6 mmol/L (3.4-5.0); Sodium 129 mmol/L (137-145)
--- NOTE | 2023-08-04 09:35 | PM.PNORT ---
Progress Note: A&P Assessment and Plan (1) Closed intertrochanteric fracture of left hip: Qualifiers: Encounter type: subsequent encounter Fracture alignment: displaced Fracture healing: with routine healing Qualified Code(s): S72.142D - Displaced intertrochanteric fracture of left femur, subsequent encounter for closed fracture with routine healing Code(s): S72.142A - Displaced intertrochanteric fracture of left femur, initial encounter for closed fracture Status: Acute Assessment and Plan: POD #3 Left hip fracture treated with trochanteric nail. PT/OT with weight-bearing as tolerated. Pain control. DVT prophylaxis with aspirin. Disposition: SNF vs AR when medically cleared. Subjective Subjective Date/Time Seen: 08/04/23 09:35 Post Op day: 3 Principal diagnosis: Left hip intertrochanteric fracture Interval history: Patient resting comfortably. Awake and alert. Oriented to person, place and time. Complains of minimal pain left hip. Review of Systems Constitutional: Constitutional: Denies fever(s) Eyes: Eyes: Denies blurry vision ENT: Reports Normal hearing present Cardiovascular: Cardiovascular: Denies chest pain and Denies dyspnea Respiratory: Respiratory: Denies dyspnea and Denies wheezing Gastrointestinal: Gastrointestinal: Denies abdominal pain Genitourinary: Genitourinary: Denies urinary urgency Musculoskeletal: Musculoskeletal: Reports as per HPI and Denies numbness Integumentary/Breasts: Skin/Breast: Denies changing lesions and Denies sores Neurologic: Reports Normal hearing present, Denies behavioral changes, Denies confusion, Denies numbness and Denies convulsions Psychiatric: Psychiatric: Denies behavioral changes, Denies confusion and Denies hallucinations Endocrine: Endocrine: Denies heat intolerance Hematologic/Lymphatic: Hematologic/Lymphatic: Denies easy bleeding Allergic/Immunologic: Allergic/Immunologic: Denies wheezing Objective Data Vital Signs Vital Signs: Vital Signs - 24 hr 08/03/23 12:00 08/03/23 22:00 Temperature 34.6 C L 36.4 C Pulse Rate 50 L 87 Respiratory Rate 16 22 H Blood Pressure 100/48 L 136/84 Pulse Oximetry 99 94 Intake/Output Intake/Output: Intake & Output 08/01/23 08/02/23 08/03/23 08/04/23 23:59 23:59 23:59 23:59 Intake Total 300 676 460 200 Output Total 2050 300 600 Balance -1750 376 -140 200 Meds/Results Medications: Active Medications Generic Name Dose Route Start Last Admin Trade Name Freq PRN Reason Stop Dose Admin Acetaminophen 650 mg 07/31/23 18:52 Acetaminophen 325 Mg Tablet PO Q4H PRN Mild Pain (1-3) or Fever Hydrocodone Bitart/Acetaminophen 1 tab 07/31/23 18:52 08/03/23 05:34 Hydrocodone/Acetaminophen (*Crx) 5-325 Mg Tablet PO 1 tab Q4H PRN Administration Pain Rated 4-6 Artificial Tears 1 drop 08/01/23 21:00 08/03/23 20:47 Artificial Tears Ophth Soln 15 Ml Bottle EACH EYE 1 drop HS TINY Administration Aspirin 325 mg 08/02/23 09:00 08/03/23 08:36 Aspirin 325 Mg Enteric Tablet PO 325 mg QAM TINY Administration Calcium Carbonate 600 mg 08/01/23 12:00 08/03/23 14:01 Calcium Carbonate (Oscal) 500 Mg Tablet PO 600 mg DAILY@1200 TINY Administration Cyanocobalamin 1,000 mcg 08/01/23 09:00 08/03/23 08:36 Cyanocobalamin 1,000 Mcg Tablet PO 08/31/23 08:59 1,000 mcg DAILY TINY Administration Duloxetine HCl 30 mg 08/01/23 09:00 08/03/23 08:36 Duloxetine Hcl 30 Mg Capsule.Dr PO 30 mg DAILY TINY Administration Fish Oil 1 gm 08/01/23 09:00 08/03/23 08:36 [place] 3 Polyunsat Fatty Acids 1 Gm Cap PO 1 gm DAILY TINY Administration Hydralazine HCl 10 mg 08/01/23 02:11 08/01/23 06:57 Hydralazine Hcl 20 Mg/Ml Vial IV PUSH 10 mg Q4H PRN Administration SBP greater than 180 Levothyroxine Sodium 88 mcg 08/01/23 06:30 08/04/23 05:48 Levothyroxine Sodium 88 Mcg Tablet PO 88 mcg DAILY@
[2023-08-04 10:10] VITALS: PULSE 91
[2023-08-04] MEDS: SENNA/DOCUSATE SODIUM TABLET 2 TAB PO ×2 (10:10→17:30)
[2023-08-04] MEDS: DULoxetine HCL 30 MG CAPSULE.DR PO (10:10)
[2023-08-04] MEDS: OMEGA 3 POLYUNSAT FATTY ACIDS 1 GM CAP PO (10:10)
[2023-08-04] MEDS: ASPIRIN 325 MG ENTERIC TABLET PO (10:10)
[2023-08-04] MEDS: lisinopriL 5 MG TABLET PO (10:10)
[2023-08-04] MEDS: MAGNESIUM OXIDE 400 MG TABLET PO (10:10)
[2023-08-04] MEDS: CHOLECALCIFEROL 1,000 UNITS TABLET 1000 UNITS PO (10:10)
[2023-08-04] MEDS: CYANOCOBALAMIN 1,000 MCG TABLET 1000 MCG PO (10:10)
[2023-08-04] MEDS: METOPROLOL TARTRATE 25 MG TABLET PO (10:10)
--- NOTE | 2023-08-04 12:06 | PM.DS ---
DS: Admitting Diagnosis Discharge Date 08/04/23 Admitting Diagnosis Left hip fracture, COVID-19 DS: Discharge Diagnosis Discharge Diagnosis (1) Closed intertrochanteric fracture of left hip: Qualifiers: Encounter type: subsequent encounter Fracture alignment: displaced Fracture healing: with routine healing Qualified Code(s): S72.142D - Displaced intertrochanteric fracture of left femur, subsequent encounter for closed fracture with routine healing Code(s): S72.142A - Displaced intertrochanteric fracture of left femur, initial encounter for closed fracture Status: Acute (2) HTN (hypertension): Onset Date: Unknown Qualifiers: Hypertension type: primary hypertension Qualified Code(s): I10 - Essential (primary) hypertension Code(s): I10 - Essential (primary) hypertension Status: Chronic (3) Urinary incontinence, mixed: Code(s): N39.46 - Mixed incontinence Status: Acute (4) COVID-19: Code(s): U07.1 - COVID-19 Status: Acute DS: Summary Hospital Course Hospital Course: This is an 87-year-old female with past medical history of dementia, hypothyroidism and osteoporosis who presented to the ED on 07/31/2023 due to ground level fall resulting in left hip pain.? Patient is from [facility].? She is at baseline a and O times 1-2.? She was found to be coughing on admission and COVID test was performed which came back positive.? Other than cough patient did not have any other symptoms of COVID.? She denies shortness of breath or difficulty breathing.? Lungs remain clear.? Remdesivir and steroids were not initiated due to patient not requiring oxygen supplementation and lack of comorbidities.? X-ray of the pelvis revealed a displaced intertrochanteric fracture of the left femur.? Orthopedics consulted.? Patient underwent a left hip trochanteric nail pending on 08/01/2023. ? PT OT and DVT prophylaxis per Orthopedics.? Patient tolerating well postoperatively.? Her pain is well managed.? Plan to discharge back to [facility] for PT and OT.? on 08/03/2023 patient was complaining of shoulder pain and x-rays revealed osteoarthritis. She did have 1 bout of diarrhea although after talking to the nurses it was not watery in nature and did not have any blood nor was a black. Diarrhea /loose stool could very likely been from COVID or food here at the hospital. She also did not void after catheter was removed until later in the evening. Labs and vital signs are stable and she is medically cleared for discharge at this time. Time Spent with Patient Time attestation: Total time spent providing and/or coordinating discharge services: Exam Narrative: GENERAL: Comfortable, no acute distress HENMT: moist mucous membranes EYES: EOM intact b/l NECK: no lymphadenopathy RESPIRATORY: clear to auscultation CARDIO: RRR GI: soft, nontender, bowel sounds present SKIN: no rashes EXTREMITIES: Poor range of motion of bilateral hips, skin tear on left middle finger that has been wrapped with gauze. DS: Data Data Completed and Pending Labs on day of discharge: Labs from last 24 hours 08/04/23 07:49 WBC 5.3 RBC 2.88 L Hgb 8.8 L Hct 26.6 L MCV 92.4 MCH 30.6 MCHC 33.1 RDW 12.9 Plt Count 193 MPV 10.7 H Sodium 129 L Potassium 3.6 Chloride 96 L Carbon Dioxide 29 Anion Gap 4 L BUN 18 H Creatinine 0.70 Estim Creat Clear Calc 40 Estimated GFR > 60 Glucose 127 H Calcium 7.7 L Discharge Plan Discharge Attending physician on discharge: Joseph Curtis Consulting providers: Kalyan Ireland Discharging Clinician: Kayla Queen Patient Disposition: [place] Intermediate/Asst Living Activity: may shower, no driving and follow weight bearing status Diet: as tolerated Wound Care Instructions: follow printed instructions Discharge Instructions: Postoperative Hip Fracture Instructions Dr. Kalyan Ireland 6
[2023-08-04] MEDS: CALCIUM CARBONATE (OSCAL) 500 MG TABLET 600 MG PO (12:21)
[2023-08-04 12:58] LABS: Hematocrit 30.7 % (37.0-47.0); Hemoglobin 9.9 g/dL (12.0-15.0)
[2023-08-04 14:00] VITALS: BP 140/53; PULSE 67; RESP 96; TEMP 36.6; O2SAT 14
== END 2023-08-04 17:50 | DRG 480 ==
LOC: ANHED 18:45 → ANH3MEDSUR 21:03
PROVIDERS: Internal Medicine; Orthopaedic Surgery; Admitting Provider Internal Medicine; Emergency Provider Emergency Medicine; Visit Provider Internal Medicine Critical Care Medicine
PROC: 0QS734Z Reposition Left Upper Femur with Internal Fixation Device, Percutaneous Approach (ICD-10-PCS; CPT 27245; principal; 2023-08-01 10:00)
DX: S72.142A Displaced intertrochanteric fracture of left femur, initial encounter for closed fracture (principal); U07.1 COVID-19; W19.XXXA Unspecified fall, initial encounter; R19.7 Diarrhea, unspecified; E78.5 Hyperlipidemia, unspecified; E03.9 Hypothyroidism, unspecified; F03.90 Unspecified dementia, unspecified severity, without behavioral disturbance, psychotic disturbance, mood disturbance, and anxiety; I10 Essential (primary) hypertension; M81.0 Age-related osteoporosis without current pathological fracture; N39.46 Mixed incontinence; Z85.828 Personal history of other malignant neoplasm of skin; Z98.41 Cataract extraction status, right eye; Z98.42 Cataract extraction status, left eye; Z96.1 Presence of intraocular lens; Z90.710 Acquired absence of both cervix and uterus; Z90.89 Acquired absence of other organs
CPT/HCPCS: 36415; 70450; 71045; 73030; 73502; 80048; 80053; 85014; 85018; 85025; 85027; 85610; 85730; 87636; 93005; 96374; 96375; 97110; 97116; 97161; 97166; 97530; 97535; 99199; 99285; A9270; C1713; G0378; J0360; J0690; J1100; J1885; J2270; J2405; J2704; J3010; J7120

== ENCOUNTER 2024-02-16 19:31 | Emergency (ER) | payer MEDICARE, MEDICAID, SELFPAY ==
[2024-02-16 19:34] VITALS: BP 173/89; PULSE 66; RESP 16; TEMP 36.6; O2SAT 99
[2024-02-16] MEDS: SILVER NITRATE (*SP) STICK 1 EACH (21:26)
[2024-02-16] MEDS: LIDO 1%/EPINEPHRINE 1:100,000 20 ML VIAL (21:26)
[2024-02-16 21:27] VITALS: BP 166/71; PULSE 66; RESP 15; O2SAT 98
--- NOTE | 2024-02-16 21:54 | ED.GENADULT ---
HPI - General Adult General Chief complaint: Wound/Laceration Stated complaint: BLEEDING POST OP WOUND Time Seen by Provider: 02/16/24 19:44 History of Present Illness HPI narrative: This is a 88-year-old female from dementia unit presenting for bleeding wound on her leg. She had a cancer skin lesion removed. It is now started bleeding started bleeding. Patient has severe dementia and can provide no useful information during the interview Related Data Home Medications Medication Instructions Recorded Confirmed dextran 70-hypromellose eye drops 1 drp EACH EYE HS 07/31/23 02/11/24 (Artificial Tears (dextran 70-hypromellose) eye drops) Allergies Allergy/AdvReac Type Severity Reaction Status Date / Time No Known Allergies Allergy Verified 09/15/23 11:07 PMF Past Medical History Medical History Closed left hip fracture High cholesterol (Unknown) History of shingles 03/2021 History of squamous cell carcinoma HTN (hypertension) (Unknown) Hyperlipidemia Hypothyroidism (~11/28/21) Skin change Snoring Urinary incontinence, mixed Surgical History Surgical History History of hysterectomy History of parathyroidectomy Status post cataract extraction of both eyes with insertion of intraocular lens Family History Family History Other Unknown family medical history Social History Social History Social History: Patient lives at [facility]. Code status: Full code (per EMR) Surrogate decision maker: Jayla Mahoney Smoking status: Never smoker Alcohol intake: never Substance use: never Substance use type: does not use Lack of Transportation: No Lack of Food: Sometimes True Current Housing: I Have Housing Concerned About Future Housing: No Difficulty Paying Gas/Electric Bills: No Difficulty Paying for Meds: No Currently Unemployed: No Education: Grade School Difficulty w/ Childcare or Family Care: No Living arrangements: [facility] Spiritual care concerns: No Exam Narrative: APPEARANCE: No apparent distress. Head: atraumatic. EYES: EOMI, NOSE: Atraumatic NECK: Trachea midline RESPIRATORY: No increased rate of breathing CARDIOVASCULAR: RRR, ABDOMINAL: Non-distended MUSCULOSKELETAl: No obvious deformities NEURO: Alert. Moving 4/4 extremities SKIN:: 3 in laceration to the right calf that is partially sewn closed. Appears the center of the wound is dehisced and is mild bleeding from the center. No evidence of cellulitis or infection. PSYCHIATRIC: Normal affect Course Vital Signs Vital signs: Vital Signs Temperature 97.9 F 02/16/24 19:34 Pulse Rate 66 02/16/24 19:34 Respiratory Rate 16 02/16/24 19:34 Blood Pressure 173/89 H 02/16/24 19:34 Pulse Oximetry 99 02/16/24 19:34 Oxygen Delivery Room Air 02/16/24 19:34 Temperature 97.9 F 02/16/24 19:34 Pulse Rate 66 02/16/24 21:27 Respiratory Rate 15 02/16/24 21:27 Blood Pressure 166/71 H 02/16/24 21:27 Pulse Oximetry 98 02/16/24 21:27 Oxygen Delivery Room Air 02/16/24 19:34 Medical Decision Making [facility] Narrative Medical decision making narrative: -Course: 88-year-old dementia patient presenting with a bleeding wound. It looks like the sutures have ruptured on her excisional skin lesion. Attempted cautery which was unsuccessful. Put a figure 8 suture in which stopped the bleeding. The wound was dressed and she was returned to the [facility]. -DDX includes but is not limited to: Dehisced laceration, bleeding arterial, venous bleeding -Co-morbidities complicating care: Dementia -Procedures Note: [id number] suture placed into the bleeding laceration on the R calf with hemostasis achieved. One 4-0 Prolene sutur
== END 2024-02-16 23:28 ==
PROVIDERS: Emergency Provider Emergency Medicine
DX: T81.31XA Disruption of external operation (surgical) wound, not elsewhere classified, initial encounter (principal); L76.21 Postprocedural hemorrhage of skin and subcutaneous tissue following a dermatologic procedure; F03.90 Unspecified dementia, unspecified severity, without behavioral disturbance, psychotic disturbance, mood disturbance, and anxiety; E78.5 Hyperlipidemia, unspecified
CPT/HCPCS: 12001; 99283

== ENCOUNTER 2024-02-25 19:10 | Emergency (ER) | payer MEDICARE, MEDICAID, SELFPAY ==
[2024-02-25 19:11] VITALS: BP 167/83; PULSE 85; RESP 18; TEMP 36.7; O2SAT 100
--- NOTE | 2024-02-25 20:15 | ED.GENADULT ---
HPI - General Adult General Chief complaint: Skin/Abscess/Foreign Body Stated complaint: possible leg infection Time Seen by Provider: 02/25/24 20:02 History of Present Illness HPI narrative: this is an 88-year-old female sent from the detention for a wound evaluation. Patient had a cancerous lesion removed from her leg several weeks ago. The wound course was complicated by dehiscence of the sutures. She also required an ER visit for continued bleeding were a [id number] suture was performed. She was then sent in today they were concerned for infection. Patient has severe dementia. She is only complaining of leg pain. No fevers chills nausea vomiting or diarrhea. Related Data Home Medications Medication Instructions Recorded Confirmed dextran 70-hypromellose eye drops 1 drp EACH EYE HS 07/31/23 02/18/24 (Artificial Tears (dextran 70-hypromellose) eye drops) Allergies Allergy/AdvReac Type Severity Reaction Status Date / Time No Known Allergies Allergy Verified 09/15/23 11:07 PMF Past Medical History Medical History Closed left hip fracture High cholesterol (Unknown) History of shingles 03/2021 History of squamous cell carcinoma HTN (hypertension) (Unknown) Hyperlipidemia Hypothyroidism (~11/28/21) Skin change Snoring Urinary incontinence, mixed Surgical History Surgical History History of hysterectomy History of parathyroidectomy Status post cataract extraction of both eyes with insertion of intraocular lens Family History Family History Other Unknown family medical history Social History Social History Social History: Patient lives at [facility]. Code status: Full code (per EMR) Surrogate decision maker: Jayla Mahoney Smoking status: Never smoker Alcohol intake: never Substance use: never Substance use type: does not use Lack of Transportation: No Lack of Food: Sometimes True Current Housing: I Have Housing Concerned About Future Housing: No Difficulty Paying Gas/Electric Bills: No Difficulty Paying for Meds: No Currently Unemployed: No Education: Grade School Difficulty w/ Childcare or Family Care: No Living arrangements: detention Spiritual care concerns: No Exam Narrative: APPEARANCE: No apparent distress. Head: atraumatic. EYES: EOMI, NOSE: Atraumatic NECK: Trachea midline RESPIRATORY: No increased rate of breathing CARDIOVASCULAR: RRR, ABDOMINAL: Non-distended MUSCULOSKELETAl: No obvious deformities NEURO: Alert. Moving 4/4 extremities SKIN:: Patient has a 6 cm dehisced wound to the lateral portion of her right calf. There is granulation tissue in the wound. There are no cellulitic changes or foul smell. No surrounding crepitus. PSYCHIATRIC: Normal affect Course Vital Signs Vital signs: Vital Signs Temperature 98.1 F 02/25/24 19:11 Pulse Rate 85 02/25/24 19:11 Respiratory Rate 18 02/25/24 19:11 Blood Pressure 167/83 H 02/25/24 19:11 Pulse Oximetry 100 02/25/24 19:11 Oxygen Delivery Room Air 02/25/24 19:11 Temperature 98.1 F 02/25/24 19:11 Pulse Rate 85 02/25/24 19:11 Respiratory Rate 18 02/25/24 19:11 Blood Pressure 167/83 H 02/25/24 19:11 Pulse Oximetry 100 02/25/24 19:11 Oxygen Delivery Room Air 02/25/24 19:11 Medical Decision Making [facility] Narrative Medical decision making narrative: -Course: 88-year-old female sent to the ED for a wound check. There is granulation tissue in the wound but no evidence of infection or cellulitic changes around the wound. It is clean and well kept. It will need [facility]. The wound was dressed and the patient will be discharged with appropriate referral
== END 2024-02-25 21:15 ==
PROVIDERS: Emergency Provider Emergency Medicine
DX: Z48.817 Encounter for surgical aftercare following surgery on the skin and subcutaneous tissue (principal); F03.90 Unspecified dementia, unspecified severity, without behavioral disturbance, psychotic disturbance, mood disturbance, and anxiety; E78.00 Pure hypercholesterolemia, unspecified; I10 Essential (primary) hypertension; E03.9 Hypothyroidism, unspecified; Z85.828 Personal history of other malignant neoplasm of skin; Z90.710 Acquired absence of both cervix and uterus; Z90.89 Acquired absence of other organs; Z96.1 Presence of intraocular lens; Z98.42 Cataract extraction status, left eye; Z98.41 Cataract extraction status, right eye
CPT/HCPCS: 99281

== ENCOUNTER 2024-04-15 09:28 | Outpatient (CLI) | payer MEDICARE, MEDICAID, SELFPAY ==
--- NOTE | ~2024-04-15 | CT_ITS ---
EXAMINATION: CT lumbar spine wo con DATE: 04/15/2024 10:36 INDICATION: Low back pain. TECHNIQUE: Computed tomography (CT) of the lumbar spine was performed without intravenous contrast. A utomated exposure control and iterative reconstruction technique were employed. The dose-length produ ct was 569.77 mGy-cm. COMPARISON: None FINDINGS: There is 8 degrees dextrocurvature of lumbar spine. There is a burst fracture of L2 with 2/ 5 loss of height and retropulsion of bone 2 mm into central spinal canal. Intervertebral disc heights are normal. The following disc levels are specifically discussed: L1-L2: The disc is bulging. There is mild bilateral facet joint osteoarthritis. There is no neural fo raminal stenosis. There is mild central canal stenosis. L2-L3: The disc does not extend beyond the endplate margin. There is mild bilateral facet joint osteo arthritis. There is no neural foraminal stenosis. There is no central canal stenosis. L3-L4: The disc is bulging. There is mild right and moderate left facet joint osteoarthritis. There i s mild bilateral neural foraminal stenosis. There is mild central canal stenosis. L4-L5: The disc is bulging. There is severe bilateral facet joint osteoarthritis. There is mild bilat eral neural foraminal stenosis. There is mild central canal stenosis. L5-S1: The disc is bulging. There is severe bilateral facet joint osteoarthritis. There is mild bilat eral neural foraminal stenosis. There is mild central canal stenosis. IMPRESSION: 1. Acute/subacute L2 burst fracture. 2. Mild lumbar spondylosis. Reviewed, dictated and finalized at location E.
== END 2024-04-15 09:29 | disposition home or self-care (01) ==
PROVIDERS: Visit Provider Family Medicine
DX: M43.06 Spondylolysis, lumbar region (principal); S32.021A Stable burst fracture of second lumbar vertebra, initial encounter for closed fracture; X58.XXXA Exposure to other specified factors, initial encounter
CPT/HCPCS: 72131

== ENCOUNTER 2024-06-02 12:14 | Outpatient (CLI) | payer MEDICARE, MEDICAID, SELFPAY ==
--- NOTE | ~2024-06-02 | XR_ITS ---
Lumbosacral Spine: AP and lateral views Clinical History: Burst fracture Findings: The normal lordotic curve is maintained. There is compression fracture of L2, with moderate to severe loss of height. There are minimal degenerative changes. There is moderate facet arthropath y throughout the lumbar spine. The sacroiliac joints are normally outlined. Impression: L2 compression fracture, as above. Degenerative spondylosis, as above. Reviewed, dictated and finalized at location M. Impression: L2 compression fracture, as above. Degenerative spondylosis, as above.
== END 2024-06-02 12:15 | disposition home or self-care (01) ==
LOC: ANHIMG 12:18
PROVIDERS: PCP Family Medicine; Visit Provider Neurological Surgery
DX: S32.020A Wedge compression fracture of second lumbar vertebra, initial encounter for closed fracture (principal); M47.896 Other spondylosis, lumbar region; X58.XXXA Exposure to other specified factors, initial encounter
CPT/HCPCS: 72100

== ENCOUNTER 2024-07-02 19:32 | Emergency (ER) | payer MEDICARE, MEDICAID, SELFPAY ==
--- NOTE | ~2024-07-02 | CT_ITS ---
CT brain wo con Ordering provider: Meseret Marion PA-C History: 88 years Female with . fall . Comparison: None. Technique: CT of the head without contrast. Radiation reduction technique utilized. The dose-length product was 681 mGy-cm. FINDINGS: BRAIN PARENCHYMA AND CSF SPACES: Mild leukoaraiosis and diffuse cortical atrophy. Mild atheromatous d isease. Old lacunar infarct in the right basal ganglia. No midline shift, mass effect or hemorrhage. The brain parenchyma and CSF spaces are otherwise normal. Empty sella turcica. VISUALIZED PARANASAL SINUSES: Well aerated. MASTOIDS: Well aerated. BONES: The bones appear intact. SOFT TISSUES: Visualized nasopharynx is normal. Superficial soft tissues are normal. IMPRESSION: No acute intracranial findings. Reviewed, dictated and finalized at location A.
--- NOTE | ~2024-07-02 | XR_ITS ---
SINGLE AP VIEW PELVIS Ordering provider: Meseret Marion PA-C History: . fall . Comparison: September 15, 2023 FINDINGS: BONES: No acute fracture or dislocation. Status post fixation of the left femoral neck is noted with no change from previous examination. HIP JOINT SPACES: Normal. SACROILIAC JOINT SPACES/LUMBAR SPINE: The sacroiliac joint spaces are normal. Mild degenerative jay es of the visualized lower lumbar spine. PUBIC SYMPHYSIS: Normal. SOFT TISSUES: Normal. IMPRESSION: No acute osseous abnormality pelvis. Postoperative changes in the left femur. Reviewed, dictated and finalized at location A.
--- NOTE | ~2024-07-02 | XR_ITS ---
XR knee RT 3V Ordering provider: Meseret Marion PA-C History: . fall . Comparison: None. FINDINGS: BONES: No acute fracture or dislocation. Slight elevation of the patella is noted JOINT SPACES: Normal. SOFT TISSUES: Normal. IMPRESSION: No acute osseous abnormality right knee. Reviewed, dictated and finalized at location A.
--- NOTE | ~2024-07-02 | XR_ITS ---
XR knee LT 3V Ordering provider: Meseret Marion PA-C History: . fall . Comparison: None. FINDINGS: BONES: No acute fracture or dislocation. JOINT SPACES: Normal. SOFT TISSUES: Normal. IMPRESSION: No acute osseous abnormality left knee. Reviewed, dictated and finalized at location A.
--- NOTE | ~2024-07-02 | XR_ITS ---
XR hand LT min 3V Ordering provider: Meseret Marion PA-C History: . fall . Comparison: None. FINDINGS: BONES: No acute fracture or dislocation. JOINT SPACES: Narrowing of the proximal and distal interphalangeal joints. SOFT TISSUES: Unremarkable. IMPRESSION: No definite acute osseous abnormality left hand. Reviewed, dictated and finalized at location A.
--- NOTE | ~2024-07-02 | XR_ITS ---
XR elbow LT min 3V Ordering provider: Meseret Marion PA-C History: . fall, contusion . Comparison: None. FINDINGS: BONES: No acute fracture or dislocation. JOINT SPACES: Normal. SOFT TISSUES: Normal. No definite joint effusion. IMPRESSION: No acute osseous abnormality left elbow. Reviewed, dictated and finalized at location A.
--- NOTE | ~2024-07-02 | XR_ITS ---
XR chest 1V Ordering provider: Meseret Marion PA-C History: 88 years Female with . fall . Comparison: August 04, 2023 FINDINGS: MEDIASTINUM: The cardiac silhouette is slightly enlarged. Prominent ignacia LUNGS: No infiltrates, effusions or pneumothorax. Nodule in the right apical area unchanged from previous examination. Evaluation for low-dose CT is ad vised. Slightly prominent markings in the lower lobes. OTHER: No free air under the diaphragm. Degenerative changes of the spine. IMPRESSION: No Cardiopulmonary pathology. Nodule in the right apical area unchanged from previous examination. Reviewed, dictated and finalized at location A.
[2024-07-02 19:38] VITALS: BP 185/89; PULSE 93; RESP 14; TEMP 36.8; O2SAT 100
--- NOTE | 2024-07-02 20:04 | ED.FALL ---
HPI - Fall General Chief Complaint: Fall Stated Complaint: fall Time Seen by Provider: 07/02/24 19:46 Source: patient Mode of arrival: EMS Limitations: dementia History of Present Illness HPI Narrative: This is a 88 year old female that presents to the ER after a fall today. Patient does not really remember the fall. She does report left elbow, hand, and bilateral knee pain. She is unsure if she hit her head. Related Data Home Medications Medication Instructions Recorded Confirmed dextran 70-hypromellose eye drops 1 drp EACH EYE HS 07/31/23 06/16/24 (Artificial Tears (dextran 70-hypromellose) eye drops) Allergies Allergy/AdvReac Type Severity Reaction Status Date / Time No Known Allergies Allergy Verified 06/02/24 11:16 Review of Systems Review of Systems: ROS unobtainable: Yes unobtainable due to medical condition PMFSH Past Medical History Medical History Closed left hip fracture High cholesterol (Unknown) History of shingles 03/2021 History of squamous cell carcinoma HTN (hypertension) (Unknown) Hyperlipidemia Hypothyroidism (~11/28/21) Skin change Snoring Urinary incontinence, mixed Surgical History Surgical History History of hysterectomy History of parathyroidectomy Status post cataract extraction of both eyes with insertion of intraocular lens Family History Family History Other Unknown family medical history Social History Social History Social History: Patient lives at [facility]. Code status: Full code (per EMR) Surrogate decision maker: Jayla Mahoney Smoking status: Never smoker Alcohol intake: never Substance use: never Substance use type: does not use Lack of Transportation: No Lack of Food: Sometimes True Current Housing: I Have Housing Concerned About Future Housing: No Difficulty Paying Gas/Electric Bills: No Difficulty Paying for Meds: No Currently Unemployed: No Education: Grade School Difficulty w/ Childcare or Family Care: No [facility] arrangements: [facility] Spiritual care concerns: No Exam Narrative: GENERAL: Elderly, well-nourished, and in no acute distress. HEAD: Normocephalic, atraumatic. EYES: PERRLA and EOMI. ENT: Nares clear, no rhinorrhea or epistaxis. Mucous membranes moist. Oropharynx without tonsillar hypertrophy exudate or other lesions. Bilateral TMs pearly calzada non-bulging NECK: Supple. No adenopathy or masses. No midline spinal tenderness CHEST: Clear to auscultation. No respiratory distress. No wheezes rales or rhonchi HEART: Regular rate and rhythm. No murmur heard. Normal peripheral pulses. ABDOMEN: Soft, nontender, nondistended, normal active bowel sounds. EXTREMITIES: Normal range of motion. No obvious deformity. Skin tear to the left elbow. Several skin tears to the left hand SKIN: Warm, dry, no rash. NEURO: No focal deficits. Alert and oriented x2. PSYCH: Normal mood and affect Course Course Emergency Course: patient and family updated on workup and agree with plan of care Vital Signs Vital signs: Vital Signs Temperature 98.3 F 07/02/24 19:38 Pulse Rate 93 07/02/24 19:38 Respiratory Rate 14 07/02/24 19:38 Blood Pressure 185/89 H 07/02/24 19:38 Pulse Oximetry 100 07/02/24 19:38 Oxygen Delivery Room Air 07/02/24 19:38 Temperature 98.3 F 07/02/24 19:38 Pulse Rate 93 07/02/24 19:38 Respiratory Rate 14 07/02/24 19:38 Blood Pressure 185/89 H 07/02/24 19:38 Pulse Oximetry 100 07/02/24 19:38 Oxygen Delivery Room Air 07/02/24 19:38 Procedures Laceration Laceration 1: Date: 07/02/24 Time: 22:49 Site: upper extremity Side (If applicable): left Size (cm): 8 Description: o
[2024-07-02] MEDS: TETANUS,DIPHTHERIA,AC PERTUSSIS ADULT (0.5 ML) BOOSTRIX IM (20:35)
[2024-07-02 22:00] VITALS: BP 172/81; PULSE 69; RESP 14; O2SAT 100
[2024-07-02 23:12] VITALS: BP 174/82; PULSE 68; RESP 14; O2SAT 97
[2024-07-03] MEDS: lisinopriL 5 MG TABLET PO (03:30)
== END 2024-07-03 03:30 ==
PROVIDERS: Emergency Provider Physician Assistant; PCP Family Medicine
DX: S61.412A Laceration without foreign body of left hand, initial encounter (principal); S51.012A Laceration without foreign body of left elbow, initial encounter; Z23 Encounter for immunization; I10 Essential (primary) hypertension; E78.00 Pure hypercholesterolemia, unspecified; E03.9 Hypothyroidism, unspecified; N39.46 Mixed incontinence; Z85.828 Personal history of other malignant neoplasm of skin; Z90.710 Acquired absence of both cervix and uterus; Z90.89 Acquired absence of other organs; Z96.1 Presence of intraocular lens; Z98.42 Cataract extraction status, left eye; Z98.41 Cataract extraction status, right eye; R91.1 Solitary pulmonary nodule; W19.XXXA Unspecified fall, initial encounter
CPT/HCPCS: 70450; 71045; 72170; 73080; 73130; 73562; 90471; 90715; 99284; A9270

== ENCOUNTER 2024-08-23 18:58 | Emergency (ER) | payer MEDICARE, MEDICAID, SELFPAY ==
--- NOTE | ~2024-08-23 | CT_ITS ---
EXAMINATION: CT brain wo con DATE: 08/23/2024 21:28 INDICATION: Altered mental status. TECHNIQUE: Computed tomography (CT) of the head was performed without intravenous contrast. The mA wa s adjusted according to patient size. Iterative reconstruction technique was employed. The dose-lengt h product was 605.33 mGy-cm. COMPARISON: Head CT 07/02/2024 FINDINGS: There are old infarcts in the bilateral thalami and right basal ganglia. There are scattere d areas of low attenuation in the cerebral white matter. There is no intracranial hemorrhage, acute i nfarction, or abnormal intracranial mass lesion. The ventricles are normal in size. There are likely changes of ocular lens replacement surgeries. There is mild mucosal thickening in the paranasal sinus es. There is a left mastoid effusion. IMPRESSION: 1. 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 2. Extensive nonspecific cerebral white matter disease, which likely represents chronic small vessel ischemic disease. Reviewed, dictated and finalized at location A. TECHNICIAN
[2024-08-23 19:00] VITALS: BP 221/88; PULSE 96; RESP 16; TEMP 36.6; O2SAT 98
--- NOTE | 2024-08-23 19:05 | ECG_ITS ---
Test Date: 2024-08-23 19:09:35 Measurements Intervals [place] Rate: 92 P: 42 NE: 179 QRS: 1 QRSD: 84 T: 29 QT: 369 QTc: 459 Interpretive Statements SINUS RHYTHM DELAYED PRECORDIAL R/S TRANSITION BORDERLINE ECG No previous ECG available for comparison Electronically Signed On 08-23-2024 20:25:26 CHARGING MANIPULATOR by Ayan Rodriguez D.O.
[2024-08-23] MEDS: LABETALOL HCL INJ 100 MG/20 ML VIAL 20 MG IV PUSH (19:53)
--- NOTE | 2024-08-23 19:56 | ED_ITS ---
HPI - Altered Mental Status General Chief Complaint: Altered Mental Status Stated Complaint: AMS, lethargy Time Seen by Provider: 08/23/24 19:05 History of Present Illness HPI narrative: Patient is an 88-year-old female who presents to the emergency department this evening from [facility] due to concern for altered her nursing EMS report, patient is normally alert oriented to person only but today she refused to take her meds and after discussing this with the patient's primary care physician, he prompted them to send the patient to the emergency department. Patient is currently resting comfortably, and does not appear to be in any distress. Moving all 4 extremities spontaneously. Patient denies any pain, and states that she has no complaints. Patient's blood pressure was noted to be elevated and when patient was asked about that she states that her her b lood pressure is always high. Patient is currently denying any headache, any chest pain, shortness of breath, focal weakness, numbness and tingling. There are no additional modifying, alleviating, or precipitating factors at this time. Related Data Home Medications Medication Instructions Recorded Confirmed dextran 70-hypromellose eye drops 1 drp EACH EYE HS 07/31/23 06/16/24 (Artificial Tears (dextran 70-hypromellose) eye drops) Allergies Allergy/AdvReac Type Severity Reaction Status Date / Time No Known Allergies Allergy Verified 06/02/24 11:16 Review of Systems Review of Systems: All systems are reviewed and are negative unless stated otherwise in the HPI. [facility] Past Medical History Medical History Closed left hip fracture High cholesterol (Unknown) History of shingles 03/2021 History of squamous cell carcinoma HTN (hypertension) (Unknown) Hyperlipidemia Hypothyroidism (~11/28/21) Skin change Snoring Urinary incontinence, mixed Surgical History Surgical History History of hysterectomy History of parathyroidectomy Status post cataract extraction of both eyes with insertion of intraocular lens Family History Family History Other Unknown family medical history Social History Social History Social History: Patient lives at [facility]. Code status: Full code (per EMR) Surrogate decision maker: Jayla Mahoney Smoking status: Never smoker Alcohol intake: never Substance use: never Substance use type: does not use Lack of Transportation: No Lack of Food: Sometimes True Current Housing: I Have Housing Concerned About Future Housing: No Difficulty Paying Gas/Electric Bills: No Difficulty Paying for Meds: No Currently Unemployed: No Education: Grade School Difficulty w/ Childcare or Family Care: No Living arrangements: [facility] Spiritual care concerns: No Exam Narrative: General: Alert, awake, afebrile, in no acute distress. HEENT: PERRL, no rhinorrhea, no post nasal drip, oropharynx clear. Neck: Trachea midline, no JVD, no lymphadenopathy. Cardiovascular: Regular rate and rhythm, no murmurs, rubs or gallops, no peripheral edema. Respiratory: Clear to auscultation bilaterally, no tachypnea, no wheezing, no rhonchi, no rubs, no respiratory distress. Abdomen: Soft, nontender, nondistended, no rebound, no guarding, no peritoneal signs. Musculoskeletal: No joint swelling or deformity, normal muscle tone. Skin: No rashes or petechia, no signs of infection. Psychiatric: Alert and oriented, normal behavior and judgment for situation. Neurological: Alert and oriented to person, place, and time. Follows all commands. No focal deficits, speech is clear and fluent. Course Vital Signs Vital signs: Vital Signs Temperature 97.8 F 08/23/24 19:00 Pulse Rate 96 08/23/24 19:00 Respiratory Rate 16 08/23/24 19:00 Blood Pressure 221/88 H 08/23/24 19:00 Pulse Oximetry 98 08/23/24 19:00 Oxygen Delivery Room Air 08/23/24 19:00 Temperature 97.8 F 08/23/24 19:00 Pulse Rate 74 08/23/24 22:36 Respiratory Rate 16 08/23/24 22:36 Blood Pressure 163/59 H 08/23/24 22:36 Pulse Oximetry 98 08/23/24 22:36 Oxygen Delivery Room Air 08/23/24 22:35 MDM - Altered Mental Status MDM Narrative Medical decision making narrative: The patient was evaluated by myself in the emergency department. History is obtained from patient who is an independent historian and physical exam was performed. External medical records were reviewed at this time. IV was established and pertinent tests were ordered. Patient was administered 20 mg IV labetalol for an elevated blood pressure that is persistently greater than 200 systolic. EKG was obtained which revealed sinus rhythm at a rate of 92 beats per minute. No ST changes, T wave inversions or evidence of acute ischemia. EKG was independently interpreted by me and is currently pending official cardiology read. Laboratory results obtained revealing no acute process. Urinalysis unremarkable. Imaging studies obtained included CT brain without IV contrast which was independently interpreted by me revealing no acute process, which is pending final radiology interpretation. Differential diagnosis considerations include acute viral syndrome, infectious process such as pneumonia, dehydration, electrolyte derangements. Comorbidities impacting this visit include history of dementia, a alert and oriented times 0 at baseline. I have evaluated and discussed social determinants of health with the patient that could potentially impact subsequent diagnosis and treatment plans. On repeat assessment of the patient, reevaluation revealed that the patient is doing well and is in no acute distress. Patient symptoms have remained stable since she arrived to our emergency department. Repeat vital signs were all reviewed and noted to be stable. Patient will follow up with her PCP in 3-5 days. Patient was provided with strict return precautions and instructed to return to the emergency department if any new or worsening symptoms develop. The patient was discharged in stable condition. Lab Data 08/23/24 19:59 08/23/24 19:59 Labs: Lab Results 08/23/24 08/23/24 Range/Units 19:59 22:09 WBC 6.1 (4.5-10.0) K/mm3 RBC 4.38 (4.2-5.4) M/mm3 Hgb 13.0 D (12.0-15.0) g/dL Hct 39.6 (37.0-47.0) % MCV 90.4 (80-100) fl MCH 29.7 (26-34) pg MCHC 32.8 (32-36) g/dl RDW 14.0 (11.5-14.5) % Plt Count 309 D (150-375) k/mm3 MPV 9.5 (7.4-10.4) fl Immature Gran % (Auto) 0.3 (0-0.5) % Neut % (Auto) 59.5 (45.5-73.1) % Lymph % (Auto) 25.8 (18.3-44.2) % [place] % (Auto) 10.0 H (2.6-8.5) % Eos % (Auto) 3.6 (0-4.4) % Baso % (Auto) 0.8 (0.2-1.2) % Lymph # (Auto) 1.57 (0.9-3.2) K/mm3 [place] # (Auto) 0.6 (0.1-0.6) K/mm3 Eos # (Auto) 0.2 (0-0.3) K/mm3 Baso # (Auto) 0.1 (0.0-0.1) K/mm3 Abs Immat Gran (auto) 0.02 (0.00-0.031) K/mm3 Absolute Neuts (auto) 3.6 (1.3-6.7) K/mm3 Absolute Nucleated RBC 0.000 (0.0-0.012) K/mm3 Nucleated RBC % 0.0 (0.0-0.2) % PT 13.8 (11.1-14.7) Seconds INR 1.0 APTT 27.4 (22.3-36.8) Seconds Sodium 140 (137-145) mmol/L Potassium 3.6 (3.4-5.0) mmol/L Chloride 104 (98-107) mmol/L Carbon Dioxide 30 (22-30) mmol/L Anion Gap 6 (4-12) mmol/L BUN 14 (7-17) mg/dL Creatinine 0.60 L (0.7-1.0) mg/dL Estim Creat Clear Calc Not Reportable Estimated GFR > 60 (59 - ) Glucose 96 (65-110) mg/dL Calcium 8.9 (8.4-10.2) mg/dL Magnesium 2.2 (1.6-2.3) mg/dL Total Bilirubin 0.5 (0.2-1.3) mg/dL AST 23 (14-36) U/L ALT 9 (6-35) U/L Alkaline Phosphatase 88 (38-126) U/L Total Protein 8.0 (6.3-8.2) g/dL Albumin 4.1 (3.5-5.1) g/dL Urine Color Yellow (Yellow) Urine Appearance Cloudy H (Clear) Urine pH 8.0 (5.0-9.0) Ur Specific [place] 1.014 (1.001-1.035) Urine Protein Trace (Negative) mg/dL Urine Glucose (UA) Negative (Negative) mg/dL Urine Ketones Negative (Negative) mg/dL Ur Blood (Man) Negative (Negative) Urine Nitrate Negative (Negative) Urine Bilirubin Negative (Negative) Urine Urobilinogen 0.2 (<2.0) mg/dL Leukocyte Esterase Rfl Negative (Negative) MARJORIE/UL Discharge Plan Discharge Clinical Impression: Dementia with agitation Patient Disposition: SNF Condition: Stable Instructions: General Patient Instructions Additional Instructions: Please follow-up with your family doctor within the next 3-5 days. Return to the emergency department if any new or worsening symptoms develop. Prescriptions: No Action mecobalamin (vitamin B12) 1,000 mcg tablet,chewable 1,000 mcg PO DAILY Qty: 30 2RF Artificial Tears([id number]) Drops 1 drp EACH EYE HS hydrocodone-acetaminophen 5-325 mg Tablet 1 tablet PO Q4H PRN (Reason: pain) Qty: 30 0RF aspirin 325 mg Tablet,Delayed Release (Dr/Ec) 325 mg PO QAM 28 Days Qty: 28 0RF sennosides-docusate sodium [Senokot-S] 8.6-50 mg Tablet 2 tab PO BID Qty: 60 0RF calcium carbonate [Oyster Shell Calcium 500] 500 mg calcium (1,250 mg) Tablet 600 mg PO DAILY@1200 Qty: 30 0RF duloxetine [Cymbalta] 30 mg capsule,delayed release(DR/EC) 30 mg PO DAILY Qty: 30 2RF lisinopril 5 mg tablet 5 mg PO DAILY Qty: 90 1RF magnesium 200 mg tablet 400 mg PO DAILY Qty: 90 1RF metoprolol tartrate 25 mg tablet 25 mg PO DAILY Qty: 60 0RF omega-3 fatty acids 1,000 mg capsule 1,000 mg PO DAILY Qty: 90 1RF cholecalciferol (vitamin D3) 25 mcg (1,000 unit) capsule 25 mcg PO DAILY Qty: 90 1RF ascorbic acid (vitamin C) 1,000 mg tablet 1 g PO DAILY Qty: 30 3RF levothyroxine [Synthroid] 88 mcg tablet 88 mcg PO DAILY Qty: 90 1RF sodium chloride 5 % drops 1 drp EACH EYE TID Qty: 15 5RF Follow-up/Referrals: Nakul Rivers MD [Primary Care Provider] - 3 Days Time of Disposition: 22:53
[2024-08-23 20:06] LABS: Basophils Absolute Auto 0.1 K/mm3 (0.0-0.1); Basophils Percent Auto 0.8 % (0.2-1.2); Eosinophils Absolute Auto 0.2 K/mm3 (0-0.3); Eosinophils Percent Auto 3.6 % (0-4.4); Hematocrit 39.6 % (37.0-47.0); Immature Granulocyte Absolute 0.02 K/mm3 (0.00-0.031); Immature Granulocyte Percent A 0.3 % (0-0.5); Lymphocytes Absolute Auto 1.57 K/mm3 (0.9-3.2); Lymphocytes Percent Auto 25.8 % (18.3-44.2); Mean Corpuscular HGB Conc 32.8 g/dl (32-36); Mean Corpuscular Hemoglobin 29.7 pg (26-34); Mean Corpuscular Volume 90.4 fl (80-100); Mean Platelet Volume 9.5 fl (7.4-10.4); Monocytes Absolute Auto 0.6 K/mm3 (0.1-0.6); Neutrophils Absolute Auto 3.6 K/mm3 (1.3-6.7); Neutrophils Percent Auto 59.5 % (45.5-73.1); Platelet Count Result 309 k/mm3 (150-375); Red Blood Count 4.38 M/mm3 (4.2-5.4); White Blood Count 6.1 K/mm3 (4.5-10.0)
[2024-08-23 20:18] LABS: Alanine Aminotransferase 9 U/L (6-35); Albumin Level 4.1 g/dL (3.5-5.1); Alkaline Phosphatase 88 U/L (38-126); Anion Gap 6 mmol/L (4-12); Aspartate Amino Transferase 23 U/L (14-36); Bilirubin,Total 0.5 mg/dL (0.2-1.3); Blood Urea Nitrogen 14 mg/dL (7-17); Calcium 8.9 mg/dL (8.4-10.2); Carbon Dioxide 30 mmol/L (22-30); Chloride 104 mmol/L (98-107); Estimated Glomerular Filt Rate > 60; Glucose 96 mg/dL (65-110); Potassium 3.6 mmol/L (3.4-5.0); Sodium 140 mmol/L (137-145)
[2024-08-23 20:20] LABS: Partial Thromboplastin Time 27.4 Seconds (22.3-36.8); Prothrombin Time 13.8 Seconds (11.1-14.7)
[2024-08-23 20:37] LABS: Magnesium 2.2 mg/dL (1.6-2.3)
[2024-08-23 22:20] LABS: Add Urine Microscopic? YES; Appearance Urine Cloudy (Clear); Bilirubin Urine Negative (Negative); Blood Urine Negative (Negative); Color Urine Yellow (Yellow); Glucose Urine UA Negative (Negative); Ketones Urine Negative (Negative); Leukocyte Esterase Ur Negative LEU/UL (Negative); Nitrate Urine Negative (Negative); Protein Urine Trace mg/dL (Negative); Specific Grav Ur 1.014 (1.001-1.035); Urobilinogen Urine 0.2 mg/dL (<2.0)
[2024-08-23 22:35] VITALS: O2SAT 98
[2024-08-23 22:36] VITALS: BP 163/59; PULSE 74; RESP 16; O2SAT 98
== END 2024-08-23 23:35 ==
PROVIDERS: Emergency Medicine; Emergency Provider Emergency Medicine; PCP Family Medicine
DX: F03.911 Unspecified dementia, unspecified severity, with agitation (principal); I10 Essential (primary) hypertension; E78.00 Pure hypercholesterolemia, unspecified; E03.9 Hypothyroidism, unspecified; Z85.828 Personal history of other malignant neoplasm of skin; Z90.89 Acquired absence of other organs; Z90.710 Acquired absence of both cervix and uterus; Z96.1 Presence of intraocular lens; Z98.42 Cataract extraction status, left eye; Z98.41 Cataract extraction status, right eye; Z79.82 Long term (current) use of aspirin; Z79.899 Other long term (current) drug therapy
CPT/HCPCS: 36415; 70450; 80053; 81001; 83735; 85025; 85610; 85730; 93005; 96374; 99284

== ENCOUNTER 2025-02-05 11:45 | Inpatient (IN) | payer MEDICARE, MEDICAID, SELFPAY ==
[2025-02-05] VITALS (18 sets, daily range): BP systolic 154–206; BP diastolic 60–83; PULSE 56–83; RESP 16–20; TEMP 36.2–37.2; O2SAT 97–100; BMI 23.1
--- NOTE | ~2025-02-05 | CT_ITS ---
CT brain wo con Ordering provider: Jack Quintanilla MD History: 89 years Female with . trauma . Comparison: None. Technique: CT of the head without contrast. Radiation reduction technique utilized.The dose-length pr oduct was 605.33 mGy-cm. FINDINGS: BRAIN PARENCHYMA AND CSF SPACES: A hematoma is seen between the midbrain and left cerebellar hemisphe re measuring 1.5 x 0.7 cm. Hematoma also seen in the right temporal lobe adjacent to the dura which may be intraparenchymal or e pidural and measuring 1.6 x 1 cm. Minimal subarachnoid hemorrhage is seen in the sulci on the left frontal lobe. Mild leukoaraiosis and diffuse cortical atrophy. Mild atheromatous disease. No midline shift, mass effect or hemorrhage. T he brain parenchyma and CSF spaces are otherwise normal. VISUALIZED PARANASAL SINUSES: Well aerated. MASTOIDS: Well aerated. BONES: The bones appear intact. SOFT TISSUES: Visualized nasopharynx is normal. Large left frontal scalp hematoma is noted. Superfic ial soft tissues are normal. IMPRESSION: Hematoma which is most likely intraparenchymal but can be epidural hematoma in the right temporal lob e. Hematomas seen between the brain and left cerebellar hemisphere. Minimal subarachnoid hemorrhage in the left frontal lobe area. Large left frontal scalp hematoma. Physician: Jack Quintanilla MD Was notified with the result of the patient at 1 4:30 PM on February 05, 2025 Reviewed, dictated and finalized at location A. IMPRESSION: Hematoma which is most likely intraparenchymal but can be epidural hematoma in the right temporal lobe. Hematomas seen between the brain and left cerebellar hemisphere. Minimal subarachnoid hemorrhage in the left frontal lobe area. Large left frontal scalp hematoma. Physician: Jack Quintanilla MD Was notified with the result of the patient at 1 4:30 PM on February 05, 2025
--- NOTE | ~2025-02-05 | CT_ITS ---
CT brain wo con Ordering provider: DARINEL Lobo History: 89 years Female with . Evaluation of interval change of bleeding . Comparison: February 05, 2025 Technique: CT of the head without contrast. Radiation reduction technique utilized.The dose-length pr oduct was 605.33 mGy-cm. FINDINGS: BRAIN PARENCHYMA AND CSF SPACES: Left frontal subarachnoid hemorrhage is again demonstrated. The larg est seen between the left temporal lobe with minimal change. The largest seen in the right temporal a latrice is also unchanged. Old lacunar infarct in the right external capsule. Mild leukoaraiosis and diff use cortical atrophy. Mild atheromatous disease. No midline shift, mass effect or hemorrhage. The br ain parenchyma and CSF spaces are otherwise normal. VISUALIZED PARANASAL SINUSES: Well aerated. MASTOIDS: Well aerated. BONES: The bones appear intact. SOFT TISSUES: Visualized nasopharynx is normal. Left frontal scalp hematoma unchanged. Superficial s oft tissues are normal. IMPRESSION: Multiple hemorrhagic areas unchanged from previous examination. Other appearances are also unchanged. Reviewed, dictated and finalized at location A. IMPRESSION: Multiple hemorrhagic areas unchanged from previous examination. Other appearanc es are also unchanged.
--- NOTE | ~2025-02-05 | CT_ITS ---
EXAMINATION: CT cervical spine wo con DATE: 02/05/2025 13:12 INDICATION: fall TECHNIQUE: Computed tomography (CT) of the cervical spine was performed without intravenous contrast. Automated exposure control and iterative reconstruction technique were employed. The dose-length pro duct was 605.33 mGy-cm. COMPARISON: None. 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 Craniocervical and atlantoaxial alignment: Mild degenerative change. Alignment intact. Osseous structures/fracture: No evidence of a lytic or blastic process in the visualized spine. No e vidence of acute fracture. Left facet fusion at C4-5. Cervical soft tissues: The paraspinal soft tissues planes are maintained. Partial left mastoid opacif ication. Enlarged thyroid. Degenerative changes: Degenerative changes, without severe neural foraminal or central canal narrowin g. IMPRESSION: No acute fracture or traumatic malalignment in the cervical spine. 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 Reviewed, dictated and finalized at location K.
--- NOTE | ~2025-02-05 | XR_ITS ---
EXAMINATION: XR hip LT 2V w AP pelvis DATE: 02/07/2025 10:58 INDICATION: Left hip injury post fall TECHNIQUE: Anteroposterior view of the pelvis and anteroposterior and cross-table lateral views of th e left hip were obtained. COMPARISON: 07/02/2024 FINDINGS: Again seen is an old intertrochanteric fracture the proximal left femur which is fixed with an antegr batool intramedullary ellie with femoral neck dynamic compression screw and distal interlocking screw fixa tion. Alignment of the healed fracture is near-anatomic. No acute fractures identified. Bilateral hip joint spaces are relatively preserved. Mild bilateral sacral back osteoarthritis. Oral contrast mate rial in the proximal colon likely related to a modified swallow study from one day prior.. IMPRESSION: 1. Internally fixed old healed intertrochanteric fracture the proximal left femur. No acute osseous a bnormality. Reviewed, dictated and finalized at location A. IMPRESSION: 1. Internally fixed old healed intertrochanteric fracture the proximal left fem ur. No acute osseous abnormality.
--- NOTE | ~2025-02-05 | XR_ITS ---
MODIFIED ESOPHAGRAM HISTORY: Weakness. Assess for aspiration. TECHNIQUE: Modified barium esophagram was performed on 02/06/2025. I administered fluoroscopy and perfo rmed the exam with speech pathologist. Patient was seated for lateral fluoroscopic imaging for inges tion of thin liquids, pudding, solids and quantified amounts, followed by thin liquids in uncontrolle d amounts. This was recorded on tape. A single fluoroscopic spot image was also recorded. The DAP for this procedure was 0.988 Gycm2. The amount of fluoroscopy time used during this procedure was 1.2 mi nutes. FINDINGS: Oral stage: Adequate function. Pharyngeal stage: Flash laryngeal penetration which clears without aspiration. Cervical/esophageal stage: Adequate function. IMPRESSION: Mild pharyngeal dysphagia with flash laryngeal penetration without aspiration. Please co rrelate with speech pathologist findings and specific feeding recommendations. Reviewed, dictated and finalized at location A. IMPRESSION: Mild pharyngeal dysphagia with flash laryngeal penetration without aspiration. Please correlate with speech pathologist findings and specific fee ding recommendations.
--- NOTE | 2025-02-05 13:40 | ED.FALL ---
HPI - Fall General Chief Complaint: Fall Stated Complaint: fall Time Seen by Provider: 02/05/25 12:26 History of Present Illness HPI Narrative: Patient is an 89-year-old female with history of dementia who had an unwitnessed fall on Thursday night 02/03/2025. The next day 02/04/2025 was found that she had swelling to left temporal area. Today she had bruising that went down to her lower chin on left-sided neck. Patient denies any pain and cannot give any history. Patient requires pureed diet but apparently was having some difficulty swelling it today which is new change. Otherwise there is no other concern or abnormal finding reported by family who was with her. STEVE did not originally want her evaluated yesterday but wanted her evaluated today. Patient does take aspirin. Related Data Home Medications ?Medication ?Instructions ?Recorded ?Confirmed ?Last Taken ?Type dextran 70-hypromellose eye drops 1 drp EACH EYE Q12H 07/31/23 02/05/25 02/04/25 History (Artificial Tears (dextran 70-hypromellose) eye drops) ascorbic acid (vitamin C) 1,000 mg 500 mg PO DAILY 02/05/25 02/05/25 02/04/25 History tablet aspirin 325 mg tablet,delayed 650 mg PO QAM 02/05/25 02/05/25 02/04/25 History release calcium 600 mg (as 1 tablet PO QPM 02/05/25 02/05/25 02/04/25 History carbonate)-vitamin D3 5 mcg (200 unit) tablet (Calcium 600 + D(3)) calcium carbonate (Oyster Shell 1,250 mg PO DAILY 02/05/25 02/05/25 02/04/25 History Calcium 500) duloxetine 30 mg capsule,delayed 60 mg PO DAILY 02/05/25 02/05/25 02/04/25 History release (Cymbalta) levothyroxine 88 mcg tablet 100 mcg PO DAILY 02/05/25 02/05/25 02/04/25 History (Synthroid) lisinopril 5 mg tablet 5 mg PO QPM 02/05/25 02/05/25 02/04/25 History magnesium 200 mg tablet 400 mg PO QPM 02/05/25 02/05/25 02/04/25 History naproxen sodium 220 mg capsule 220 mg PO TID PRN pain 02/05/25 02/05/25 02/04/25 History (Aleve) omega-3 fatty acids 1,000 mg 1,000 mg PO QPM 02/05/25 02/05/25 02/04/25 History capsule sodium chloride 5 % eye drops 1 drp EACH EYE QHS dry eye(s) 02/05/25 02/05/25 02/04/25 History Allergies Allergy/AdvReac Type Severity Reaction Status Date / Time No Known Allergies Allergy Verified 06/02/24 11:16 Review of Systems Review of Systems: ROS unobtainable: Yes unobtainable due to mental status PMFSH Past Medical History Medical History (Updated 02/05/25 @ 18:31 by Jack Quintanilla MD) Dysphagia Dementia Closed head injury Closed left hip fracture Urinary incontinence, mixed History of shingles 03/2021 Snoring Skin change Hyperlipidemia Hypothyroidism (~11/28/21) History of squamous cell carcinoma HTN (hypertension) (Unknown) High cholesterol (Unknown) Surgical History Surgical History Status post cataract extraction of both eyes with insertion of intraocular lens History of hysterectomy History of parathyroidectomy Family History Family History Other Unknown family medical history Social History Social History Social History: Patient lives at [facility]. Code status: DNR 02/05/2025 Surrogate decision maker: Jayla Mahoney Smoking status: Never smoker Alcohol intake: never Substance use: never Substance use type: does not use Lack of Transportation: No Lack of Food: Sometimes True Current Housing: I Have Housing Concerned About Future Housing: No Difficulty Paying Gas/Electric Bills: No Difficulty Paying for Meds: No Currently Unemployed: No Education: Grade School Difficulty w/ Childcare or Family Care: No Living arrangements: longterm Spiritual care concerns: No Exam Narrative: GENERAL: Well-appearing, well-nourished, and in no acute distress. HEAD: Normocephalic, bruise soft tissue swelling left temporal area without fluctuance. Bruising to left cheek jaw. EYES: PERRL and EOMI. ENT: Mucous membranes moist. NECK: Supple. No midline tenderness. CHEST: Clear to auscultation. No respiratory distress. HEART: Regular rate and rhythm. Normal peripheral pulses. ABDOMEN: Soft, nontender, nondistended. EXTREMITIES: Normal range of motion. No edema. NEURO: Awake, alert, orient x1. No facial droop. No upper or lower extremity drift. Sensation grossly intact. PSYCH: Normal mood and affect. Course Course Emergency Course: Have had a long conversation with the patient's POA as well as the POA is . The patient is a do not resuscitate. They have informed me that should patient's status declined here they would not change their mind to seek evaluation at a tertiary care center for intracranial hemorrhage. These hemorrhages seem to be 48 hours old in terms of patient's history. We will give the patient loading dose of Keppra. Patient would benefit from observation here as well as fast study given the report that she is having difficulty swelling her pureed diet. Discussed with no surgery about conservative approach in feel that this is reasonable to get a repeat CT tomorrow and to have patient be on Keppra 500 mg b.i.d. for 3 days given patient's chronic debility. Patient accepted hospitalist service. Vital Signs Vital signs: Vital Signs Pulse Rate 56 L 02/05/25 11:46 Respiratory Rate 19 02/05/25 11:46 Blood Pressure 154/63 H 02/05/25 11:46 Pulse Oximetry 99 02/05/25 11:46 Oxygen Delivery Room Air 02/05/25 11:46 Temperature 97.2 F L 02/05/25 17:10 Pulse Rate 76 02/05/25 17:10 Respiratory Rate 20 02/05/25 17:10 Blood Pressure 181/75 H 02/05/25 17:10 Pulse Oximetry 97 02/05/25 17:10 Oxygen Delivery Room Air 02/05/25 11:46 MDM - Fall Lab Data 02/05/25 14:50 02/05/25 14:50 Labs: Lab Results 02/05/25 Range/Units 14:50 WBC 6.0 (4.5-10.0) K/mm3 RBC 3.50 L (4.2-5.4) M/mm3 Hgb 10.8 L (12.0-15.0) g/dL Hct 33.7 L (37.0-47.0) % MCV 96.3 (80-100) fl MCH 30.9 (26-34) pg MCHC 32.0 (32-36) g/dl RDW 13.4 (11.5-14.5) % Plt Count 242 (150-375) k/mm3 MPV 10.5 H (7.4-10.4) fl Immature Gran % (Auto) 0.3 (0-0.5) % Neut % (Auto) 60.2 (45.5-73.1) % Lymph % (Auto) 23.7 (18.3-44.2) % [place] % (Auto) 10.5 H (2.6-8.5) % Eos % (Auto) 4.8 H (0-4.4) % Baso % (Auto) 0.5 (0.2-1.2) % Lymph # (Auto) 1.42 (0.9-3.2) K/mm3 [place] # (Auto) 0.6 (0.1-0.6) K/mm3 Eos # (Auto) 0.3 (0-0.3) K/mm3 Baso # (Auto) 0.0 (0.0-0.1) K/mm3 Abs Immat Gran (auto) 0.02 (0.00-0.031) K/mm3 Absolute Neuts (auto) 3.6 (1.3-6.7) K/mm3 Absolute Nucleated RBC 0.000 (0.0-0.012) K/mm3 Nucleated RBC % 0.0 (0.0-0.2) % PT 13.1 (11.1-14.7) Seconds INR 1.0 APTT 26.2 (22.3-36.8) Seconds Sodium 138 (137-145) mmol/L Potassium 4.1 (3.4-5.0) mmol/L Chloride 103 (98-107) mmol/L Carbon Dioxide 30 (22-30) mmol/L Anion Gap 5 (4-12) mmol/L BUN 12 (7-17) mg/dL Creatinine 0.69 L (0.7-1.0) mg/dL Estim Creat Clear Calc 62 ml/min Estimated GFR > 60 (59 - ) Glucose 102 (65-110) mg/dL Calcium 9.1 (8.4-10.2) mg/dL Total Bilirubin 0.4 (0.2-1.3) mg/dL AST 22 (14-36) U/L ALT 12 (6-35) U/L Alkaline Phosphatase 83 (38-126) U/L Total Protein 7.0 (6.3-8.2) g/dL Albumin 3.9 (3.5-5.1) g/dL Imaging Data Radiologist's impression: ITS Impressions Head CT 02/05/25 13:33 IMPRESSION: Hematoma which is most likely intraparenchymal but can be epidural hematoma in the right temporal lobe. Hematomas seen between the brain and left cerebellar hemisphere. Minimal subarachnoid hemorrhage in the left frontal lobe area. Large left frontal scalp hematoma. Physician: Jack Quintanilla MD Was notified with the result of the patient at 1 4:30 PM on February 05, [address] 02/05/25 14:02 IMPRESSION: No acute fracture or traumatic malalignment in the cervical spine. 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 Critical Care Time Critical Care Time Critical Care Time: Yes Total Critical Care Time: 35 Discharge Plan Discharge Clinical Impression: Intraparenchymal hemorrhage of brain, Subarachnoid hemorrhage, Contusion of face Patient Disposition: Still a Patient Condition: Serious
[2025-02-05] MEDS: levETIRAcetam 1000MG/NACL100ML 1,000 MG/100 ML BAG 400 MG IVPB (14:54)
[2025-02-05 14:55] LABS: Basophils Percent Auto 0.5 % (0.2-1.2); Eosinophils Absolute Auto 0.3 K/mm3 (0-0.3); Eosinophils Percent Auto 4.8 % (0-4.4); Hematocrit 33.7 % (37.0-47.0); Hemoglobin 10.8 g/dL (12.0-15.0); Immature Granulocyte Absolute 0.02 K/mm3 (0.00-0.031); Immature Granulocyte Percent A 0.3 % (0-0.5); Lymphocytes Absolute Auto 1.42 K/mm3 (0.9-3.2); Lymphocytes Percent Auto 23.7 % (18.3-44.2); Mean Corpuscular Hemoglobin 30.9 pg (26-34); Mean Corpuscular Volume 96.3 fl (80-100); Mean Platelet Volume 10.5 fl (7.4-10.4); Monocytes Absolute Auto 0.6 K/mm3 (0.1-0.6); Monocytes Percent Auto 10.5 % (2.6-8.5); Neutrophils Absolute Auto 3.6 K/mm3 (1.3-6.7); Neutrophils Percent Auto 60.2 % (45.5-73.1); Platelet Count Result 242 k/mm3 (150-375); Red Cell Distribution Width 13.4 % (11.5-14.5)
[2025-02-05 15:05] LABS: Alanine Aminotransferase 12 U/L (6-35); Albumin Level 3.9 g/dL (3.5-5.1); Alkaline Phosphatase 83 U/L (38-126); Anion Gap 5 mmol/L (4-12); Aspartate Amino Transferase 22 U/L (14-36); Bilirubin,Total 0.4 mg/dL (0.2-1.3); Blood Urea Nitrogen 12 mg/dL (7-17); Calcium 9.1 mg/dL (8.4-10.2); Carbon Dioxide 30 mmol/L (22-30); Chloride 103 mmol/L (98-107); Estimated CRCL calculation 62 ml/min; Estimated Glomerular Filt Rate > 60; Glucose 102 mg/dL (65-110); Potassium 4.1 mmol/L (3.4-5.0); Sodium 138 mmol/L (137-145)
[2025-02-05 15:08] LABS: Prothrombin Time 13.1 Seconds (11.1-14.7)
[2025-02-05 15:09] LABS: Partial Thromboplastin Time 26.2 Seconds (22.3-36.8)
--- NOTE | 2025-02-05 16:03 | P.HP_ITS ---
H&P: HPI History of Present Illness Date/Time: 02/05/25 16:03 Chief Complaint: Closed head injury/Presumed unwitnessed fall Narrative: This 89 year old female pt with PMH of HTN, HLD, Dementia w/baseline level of orientation 0-1, hip fracture and hypothyroidism w/surgical parathyroidectomy comes to the ER from [facility] where she resides with acute bruising and hematoma to the left side of the head and down the face. This was first noted yesterday, and at first the POA did not want the pt evaluated until today when she had difficulty swallowing her pureed diet. She takes a full strength ASA daily. Pt tells me that she has pain in her right knee and in her back, but is not a reliable source of information. She has no obvious s/s of distress other than the obvious hematoma to the left side of her head and the adjacent bruising. Pt's injury was not witnessed so exact details of events are unknown. Workup was performed in the ER including labs and imaging. Labs including coags, CBC, and CMP are unremarkable with a noted calcium of 9.1. CT Cervical spine is without any acute abnormal findings. CT Head shows a right temporal lobe hematoma with 1.6 cm x 1 cm likely intraparenchymal but not ruled out epidural hemorrhage, and there is another 1.5 cm x 1 cm hematoma between the brain and the left cerebellar hemisphere. There is a left frontal SAH that corresponds to the left frontal scalp hematoma. Discussion was had with the ER physician and the POA, Ms. Jayla Mahoney who is the pt's daughter and who is at the bedside regarding goals of care. Ms. Mahoney, a retired nurse and very knowledgeable in the objective findings of the current situation was offered discussion and transfer to a trauma facility for expert Neurosurgical evaluation and intervention vs. keeping pt here with the understanding that she must be considered a DNR if we did not move for NSY evaluation in the current setting. She opted to make pt a DNR and to not seek out any NSY evaluation as she would not want the pt to have invasive intervention despite the findings. She is agreeable to keeping pt here, monitoring and ordering swallow evaluation to determine whether or not pt will be able to continue with her pureed diet, whether she needs a new consistency order of if she needs a potential feeding tube. She advises this will help direct her decision making regarding further degrees and level of care vs. progression to comfort measures and possibly hospice, and is therefore agreeable to this plan of care. Ms. Mahoney is aware that the plan is to not intervene should the pt's mental status/neurological status further decline. Review of Systems Review of Systems: All systems reviewed & are unremarkable except as noted in HPI and below PMFSH Past Medical History Medical History (Updated 02/05/25 @ 16:29 by DARINEL Lobo) Dysphagia Dementia Closed head injury Closed left hip fracture Urinary incontinence, mixed History of shingles 03/2021 Snoring Skin change Hyperlipidemia Hypothyroidism (~11/28/21) History of squamous cell carcinoma HTN (hypertension) (Unknown) High cholesterol (Unknown) Surgical History Surgical History Status post cataract extraction of both eyes with insertion of intraocular lens History of hysterectomy History of parathyroidectomy Family History Family History Other Unknown family medical history Social History Social History Social History: Patient lives at [facility]. Code status: DNR 02/05/2025 Surrogate decision maker: Jayla Mahoney Smoking status: Never smoker Alcohol intake: never Substance use: never Substance use type: does not use Lack of Transportation: No Lack of Food: Sometimes True Current Housing: I Have Housing Concerned About Future Housing: No Difficulty Paying Gas/Electric Bills: No Difficulty Paying for Meds: No Currently Unemployed: No Education: Grade School Difficulty w/ Childcare or Family Care: No Living arrangements: [facility] Spiritual care concerns: No Meds Home Medications and Allergies Home Medications ?Medication ?Instructions ?Recorded ?Confirmed ?Type cholecalciferol (vitamin D3) 25 25 mcg PO DAILY #90 caps 06/19/22 06/16/24 Rx mcg (1,000 unit) capsule duloxetine 30 mg capsule,delayed 30 mg PO DAILY #30 caps 06/19/22 06/16/24 Rx release (Cymbalta) lisinopril 5 mg tablet 5 mg PO DAILY #90 tabs 06/19/22 06/16/24 Rx magnesium 200 mg tablet 400 mg (2 x 200 mg) PO DAILY #90 06/19/22 06/16/24 Rx tabs metoprolol tartrate 25 mg tablet 25 mg PO DAILY #60 tabs 06/19/22 06/16/24 Rx omega-3 fatty acids 1,000 mg 1,000 mg PO DAILY #90 caps 06/19/22 06/16/24 Rx capsule ascorbic acid (vitamin C) 1,000 mg 1 g PO DAILY #30 tabs 07/23/22 06/16/24 Rx tablet Synthroid 88 mcg tablet 88 mcg PO DAILY #90 tabs 07/24/22 06/16/24 Rx (levothyroxine) mecobalamin (vitamin B12) 1,000 1,000 mcg PO DAILY #30 tabs 12/23/22 06/16/24 Rx mcg chewable tablet sodium chloride 5 % eye drops 1 drp EACH EYE TID dry eye(s) #15 04/15/23 06/16/24 Rx mL dextran 70-hypromellose eye drops 1 drp EACH EYE HS 07/31/23 06/16/24 History (Artificial Tears (dextran 70-hypromellose) eye drops) aspirin 325 mg tablet,delayed 325 mg PO QAM 28 days #28 tabs 08/03/23 06/16/24 Rx release calcium carbonate (Oyster Shell 600 mg (1.2 x 500 mg calcium 08/03/23 06/16/24 Rx Calcium 500) (1,250 mg)) PO DAILY@1200 #30 tabs hydrocodone 5 mg-acetaminophen 325 1 tablet PO Q4H PRN pain #30 tabs 08/03/23 06/16/24 Rx mg tablet sennosides 8.6 mg-docusate sodium 2 tab PO BID #60 tabs 08/03/23 06/16/24 Rx 50 mg tablet (Senokot-S) Allergies Allergy/AdvReac Type Severity Reaction Status Date / Time No Known Allergies Allergy Verified 06/02/24 11:16 Vital Signs Vital Signs - 24 hr 02/05/25 11:46 02/05/25 11:54 02/05/25 11:56 Pulse Rate 56 L Respiratory Rate 19 Blood Pressure 154/63 H 154/63 H Pulse Oximetry 99 99 98 Oxygen Delivery Room Air 02/05/25 12:00 02/05/25 12:02 02/05/25 12:19 Pulse Rate Respiratory Rate Blood Pressure 193/78 H Pulse Oximetry 100 100 99 Oxygen Delivery 02/05/25 12:31 02/05/25 12:32 02/05/25 12:45 Pulse Rate Respiratory Rate Blood Pressure 202/60 H Pulse Oximetry 100 100 99 Oxygen Delivery 02/05/25 13:00 02/05/25 13:16 02/05/25 14:43 Pulse Rate Respiratory Rate Blood Pressure Pulse Oximetry 100 99 100 Oxygen Delivery 02/05/25 14:45 02/05/25 14:59 02/05/25 15:06 Pulse Rate Respiratory Rate Blood Pressure 157/83 H Pulse Oximetry 100 100 99 Oxygen Delivery Exam Const: General: comfortable and no acute distress Other: Elderly, confused and demented pt lying on her left side on the stretcher at this time in no acute distress. HENMT: Face/Nose/Sinus: Normal nares present and no epistaxis Mouth: Yes dry mucous membranes Other: Large ping pong sized hematoma to the left frontal region of the scalp with extensive bruising extending around the left orbit of the eye, and down the left side of the face onto the neck. Eyes: Sclera: sclerae normal Pupils: Equal, round and reactive pupils present Neck: Neck: supple and no JVD Resp: Effort & Inspection: normal respiratory effort Auscultation: clear to auscultation bilaterally Cardio: Rate: regular rate Rhythm: regular rhythm Heart sounds: no gallops, no murmurs and no rubs GI: Inspection: non-distended GI Palp: Yes Soft to palpation Auscultation: normal bowel sounds : Other: Incontinent of urine Back/Spine/Pelvis: Other: No midline spinal step-off, crepitus or edema. Pt does not grimace or complain of pain with direct palpation. Skin: Other: Extensive bruising and hematoma to left side of scalp and onto the face. Neuro: Speech: normal speech Motor exam (neuro): Abnormal motor strength present (Generalized, non-focal weakness throughout) Sensory Exam: normal sensation Other: At baseline with alert and orientation 0-1. She is occasionally alert and oriented to self and her daughter, but today she cannot answer for me who her daughter is. Extrem: General: no edema and no pedal edema Other: Freely and equally MAEW. No deficits noted. Psych: Other: Confused H&P: Results Labs Labs: Short CBC 02/05/25 Range/Units 14:50 WBC 6.0 (4.5-10.0) K/mm3 Hgb 10.8 L (12.0-15.0) g/dL Hct 33.7 L (37.0-47.0) % Plt Count 242 (150-375) k/mm3 BMP 02/05/25 14:50 Sodium 138 Potassium 4.1 Chloride 103 Carbon Dioxide 30 BUN 12 Creatinine 0.69 L Glucose 102 Calcium 9.1 Liver Function 02/05/25 Range/Units 14:50 Total Bilirubin 0.4 (0.2-1.3) mg/dL AST 22 (14-36) U/L ALT 12 (6-35) U/L Alkaline Phosphatase 83 (38-126) U/L Albumin 3.9 (3.5-5.1) g/dL Assessment and Plan Assessment and plan (1) Closed head injury: Code(s): S09.90XA - Unspecified injury of head, initial encounter Status: Acute Assessment and Plan: * secondary to a presumed unwitnessed fall at [facility] * CT head showing 1.6 cm x 1 cm right temporal lobe hematoma likely intraparenchymal but epidural hemorrhage is considered. * CT head also showing hematomas between the brain in the left cerebellar hemisphere, a left frontal subarachnoid hemorrhage that corresponds with left frontal scalp hematoma and the largest hematoma measuring 1.5 cm to 0.7 cm between the brain and left cerebellar hemisphere. * In-depth discussion has been had with patient's power of trade mark attorney at the bedside who has decided to make her a DNR and not pursue any further neurosurgical or trauma evaluation. * Will hold patient's full-dose aspirin * increasing concerns today as patient with difficulty swallowing. * repeat CT scan in AM to assess interval changes to front office help the POA in decision making regarding goals of care. * NSY consult deferred as the POA made it clear she did not want any surgical interventions or any further NSY workup. (2) Dysphagia: Code(s): R13.10 - Dysphagia, unspecified Status: Acute Assessment and Plan: * At baseline patient must have some difficulty with swallowing as she eats a pureed diet. * Due to increasing difficulty today, suspect either increased difficulty due to fall and brain hemorrhages and or progression of dementia. * Patient to remain NPO pending swallow eval * swallow eval with speech therapy ordered * patient's power of trade mark attorney will use information to further guide decisions regarding placement of feeding tube or progression to possible hospice care. * Holding all p.o. medications in current setting. (3) HTN (hypertension): Onset Date: Unknown Qualifiers: Hypertension type: primary hypertension Qualified Code(s): I10 - Ess ential (primary) hypertension Code(s): I10 - Essential (primary) hypertension Status: Chronic Assessment and Plan: * Chronic in nature. * Will hold p.o. medications at this time pending swallow evaluation. * IV hydralazine ordered p.r.n. with parameters of systolic blood pressure greater than 180 and diastolic blood pressure greater than 90 * continue to trend and monitor (4) High cholesterol: Onset Date: Unknown Code(s): E78.00 - Pure hypercholesterolemia, unspecified Status: Chronic Assessment and Plan: * holding p.o. medication at this time. * If patient passes swallow evaluation would recommend heart healthy diet with consistency modifications to be determined by dietary (5) Hypothyroidism: Onset Date: ~11/28/21 Qualifiers: Hypothyroidism type: unspecified Qualified Code(s): E03.9 - Hypothyroidism, unspecified Code(s): E03.9 - Hypothyroidism, unspecified Status: Chronic Assessment and Plan: * holding p.o. medications this time. (6) Dementia: Code(s): F03.90 - Unspecified dementia, unspecified severity, without behavioral disturbance, psychotic disturbance, mood disturbance, and anxiety Status: Chronic Assessment and Plan: * Chronic in nature. * Provide for safety * fall precautions * do not resuscitate Quality VTE Prophylaxis VTE prophylaxis: mechanical ordered Hospitalist MIPS Advance Care Plan I have confirmed that the patient's Advanced Care Plan is present, code status is documented, or surrogate decision maker is listed in patient medical record.: Yes Medication Reconciliation I have utilized all available resources to obtain, update and review the patients current medications (includes all prescriptions, OTC, herbals, cannabis, and nutritional supplements).: Yes
--- NOTE | 2025-02-05 16:54 | ADMGEN ---
This patient, Elicia Raymond, was admitted to 2 Medical Room 259-. Patient/family oriented to hospital policies and general routines including ID bracelet, bed and alarms, visiting hours, pain management, procedures, bathroom and other care routines, personal items, smoking policy, room service/diet, and visiting hours. Information on how to activate the Rapid Response Team has been discussed. Patient/Family are encouraged to report perceived risks to care and to ask questions if they do not understand what they are told or what they should do.
[2025-02-05] MEDS: SODIUM CHLORIDE 0.9% IV 1,000 ML 100 ML IV CONT (17:23)
--- NOTE | 2025-02-05 17:46 | PC.NURSE ---
Spoke with Talya, at [facility], regarding medication list. Fax number provided.
--- NOTE | 2025-02-05 18:28 | PC.NURSE ---
Multiple attempts made to place a new IV site without success.
[2025-02-05] MEDS: hydrALAZINE HCL 20 MG/ML VIAL 10 MG IV PUSH (18:34)
[2025-02-06 03:15] VITALS: BP 167/47; PULSE 84; RESP 14; TEMP 36.9; O2SAT 99
[2025-02-06] MEDS: levETIRAcetam 500MG/NACL 100ML 500 MG/100 ML BAG 400 MG IVPB ×2 (03:17→16:39)
[2025-02-06 05:00] LABS: Basophils Absolute Auto 0.1 K/mm3 (0.0-0.1); Basophils Percent Auto 0.9 % (0.2-1.2); Eosinophils Absolute Auto 0.3 K/mm3 (0-0.3); Eosinophils Percent Auto 5.6 % (0-4.4); Hematocrit 31.7 % (37.0-47.0); Hemoglobin 10.5 g/dL (12.0-15.0); Immature Granulocyte Absolute 0.02 K/mm3 (0.00-0.031); Immature Granulocyte Percent A 0.4 % (0-0.5); Lymphocytes Absolute Auto 1.34 K/mm3 (0.9-3.2); Lymphocytes Percent Auto 23.6 % (18.3-44.2); Mean Corpuscular HGB Conc 33.1 g/dl (32-36); Mean Corpuscular Hemoglobin 31.2 pg (26-34); Mean Corpuscular Volume 94.1 fl (80-100); Mean Platelet Volume 10.7 fl (7.4-10.4); Monocytes Absolute Auto 0.6 K/mm3 (0.1-0.6); Monocytes Percent Auto 11.3 % (2.6-8.5); Neutrophils Absolute Auto 3.3 K/mm3 (1.3-6.7); Neutrophils Percent Auto 58.2 % (45.5-73.1); Platelet Count Result 227 k/mm3 (150-375); Red Blood Count 3.37 M/mm3 (4.2-5.4); Red Cell Distribution Width 13.1 % (11.5-14.5); White Blood Count 5.7 K/mm3 (4.5-10.0)
[2025-02-06 05:23] LABS: Alanine Aminotransferase 11 U/L (6-35); Albumin Level 3.6 g/dL (3.5-5.1); Alkaline Phosphatase 66 U/L (38-126); Anion Gap 5 mmol/L (4-12); Aspartate Amino Transferase 24 U/L (14-36); Bilirubin,Total 0.7 mg/dL (0.2-1.3); Blood Urea Nitrogen 10 mg/dL (7-17); Calcium 8.4 mg/dL (8.4-10.2); Carbon Dioxide 29 mmol/L (22-30); Chloride 106 mmol/L (98-107); Estimated CRCL calculation 42 ml/min; Estimated Glomerular Filt Rate > 60; Glucose 91 mg/dL (65-110); Magnesium 2.1 mg/dL (1.6-2.3); Potassium 3.7 mmol/L (3.4-5.0); Sodium 140 mmol/L (137-145)
[2025-02-06 05:24] LABS: Partial Thromboplastin Time 27.1 Seconds (22.3-36.8); Prothrombin Time 13.2 Seconds (11.1-14.7)
[2025-02-06 05:48] VITALS: BP 189/77; PULSE 64; RESP 16; TEMP 36.8; O2SAT 96
--- NOTE | 2025-02-06 06:56 | P.PNIM_ITS ---
Progress Note: A&P Assessment and Plan (1) Closed head injury: Code(s): S09.90XA - Unspecified injury of head, initial encounter Status: Acute Assessment and Plan: * Secondary to a presumed unwitnessed fall at senior living * CT head showing 1.6 cm x 1 cm right temporal lobe hematoma likely intraparenchymal but epidural hemorrhage is considered. * CT head also showing hematomas between the brain in the left cerebellar hemisphere, a left frontal subarachnoid hemorrhage that corresponds with left frontal scalp hematoma and the largest hematoma measuring 1.5 cm to 0.7 cm between the brain and left cerebellar hemisphere. * In-depth discussion has been had with patient's power of trademark attorney at the bedside who has decided to make her a DNR and not pursue any further neurosurgical or trauma evaluation. * Will hold patient's full-dose aspirin * NSY consult deferred as the POA made it clear she did not want any surgical interventions or any further NSY workup. * Pending repeat CT head * Pending Modified swallow study (2) Dysphagia: Code(s): R13.10 - Dysphagia, unspecified Status: Acute Assessment and Plan: * At baseline patient must have some difficulty with swallowing as she eats a pureed diet. * Due to increasing difficulty today, suspect either increased difficulty due to fall and brain hemorrhages and or progression of dementia. * Patient to remain NPO pending swallow eval * Swallow eval with speech therapy ordered * Patient's power of trademark attorney will use information to further guide decisions regarding placement of feeding tube or progression to possible hospice care. * Holding all p.o. medications in current setting. (3) HTN (hypertension): Onset Date: Unknown Qualifiers: Hypertension type: primary hypertension Qualified Code(s): I10 - Essential (primary) hypertension Code(s): I10 - Essential (primary) hypertension Status: Chronic Assessment and Plan: * Chronic in nature. * Will hold p.o. medications at this time pending swallow evaluation. * IV hydralazine ordered p.r.n. with parameters of systolic blood pressure greater than 180 and diastolic blood pressure greater than 90 * Continue to trend and monitor * No change (4) High cholesterol: Onset Date: Unknown Code(s): E78.00 - Pure hypercholesterolemia, unspecified Status: Chronic Assessment and Plan: * Holding p.o. medication at this time. * If patient passes swallow evaluation would recommend heart healthy diet with consistency modifications to be determined by dietary * No change (5) Hypothyroidism: Onset Date: ~11/28/21 Qualifiers: Hypothyroidism type: unspecified Qualified Code(s): E03.9 - Hypothyroidism, unspecified Code(s): E03.9 - Hypothyroidism, unspecified Status: Chronic Assessment and Plan: * Holding p.o. medications this time. (6) Dementia: Code(s): F03.90 - Unspecified dementia, unspecified severity, without behavioral disturbance, psychotic disturbance, mood disturbance, and anxiety Status: Chronic Assessment and Plan: * Chronic in nature. * Provide for safety * fall precautions * do not resuscitate Time Spent With Patient Time: Subjective Date/time seen: 02/06/25 06:56 Interval history: 89 year old female pt with PMH of HTN, HLD, Dementia w/baseline level of orientation 0-1, hip fracture and hypothyroidism w/surgical parathyroidectomy comes to the ER from [facility] where she resides with acute bruising and hematoma to the left side of the head and down the face. 02/06/2025 Pt sitting in bed at time of exam. Baseline A&Ox0-1, but appears to be comfortable at this time. Modified swallow study to be performed today. Repeat CT today as well. Review of Systems Review of Systems: All systems reviewed & are unremarkable except as noted in HPI and below Exam Const: General: comfortable and no acute distress Other: Elderly, confused and demented pt lying on her left side on the stretcher at this time in no acute distress. HENMT: Face/Nose/Sinus: Normal nares present and no epistaxis Mouth: Yes dry mucous membranes Other: Large ping pong sized hematoma to the left frontal region of the scalp with extensive bruising extending around the left orbit of the eye, and down the left side of the face onto the neck. Eyes: Sclera: sclerae normal Pupils: Equal, round and reactive pupils present Neck: Neck: supple and no JVD Resp: Effort & Inspection: normal respiratory effort Auscultation: clear to auscultation bilaterally Cardio: Rate: regular rate Rhythm: regular rhythm Heart sounds: no gallops, no murmurs and no rubs GI: Inspection: non-distended Auscultation: normal bowel sounds : Other: Incontinent of urine Back/Spine/Pelvis: Other: No midline spinal step-off, crepitus or edema. Pt does not grimace or complain of pain with direct palpation. Skin: Other: Extensive bruising and hematoma to left side of scalp and onto the face. Neuro: Cranial nerves: Yes Equal, round and reactive pupils present Speech: normal speech Motor exam (neuro): Abnormal motor strength present (Generalized, non-focal weakness throughout) Sensory Exam: normal sensation Other: At baseline with alert and orientation 0-1. She is occasionally alert and oriented to self and her daughter, but today she cannot answer for me who her daughter is. Extrem: General: no edema and no pedal edema Other: Freely and equally MAEW. No deficits noted. Psych: Other: Confused Objective Data Vital Signs Vital Signs: Vital Signs - 24 hr 02/05/25 11:46 02/05/25 11:54 02/05/25 11:56 Temperature Pulse Rate 56 L Respiratory Rate 19 Blood Pressure 154/63 H 154/63 H Pulse Oximetry 99 99 98 Oxygen Delivery Room Air 02/05/25 12:00 02/05/25 12:02 02/05/25 12:19 Temperature Pulse Rate Respiratory Rate Blood Pressure 193/78 H Pulse Oximetry 100 100 99 Oxygen Delivery 02/05/25 12:31 02/05/25 12:32 02/05/25 12:45 Temperature Pulse Rate Respiratory Rate Blood Pressure 202/60 H Pulse Oximetry 100 100 99 Oxygen Delivery 02/05/25 13:00 02/05/25 13:16 02/05/25 14:43 Temperature Pulse Rate Respiratory Rate Blood Pressure Pulse Oximetry 100 99 100 Oxygen Delivery 02/05/25 14:45 02/05/25 14:59 02/05/25 15:06 Temperature Pulse Rate Respiratory Rate Blood Pressure 157/83 H Pulse Oximetry 100 100 99 Oxygen Delivery 02/05/25 17:10 02/05/25 20:23 02/05/25 20:30 Temperature 97.2 F L 98.9 F 99.0 F Pulse Rate 76 83 80 Respiratory Rate 20 16 16 Blood Pressure 181/75 H 201/69 H 206/82 H Pulse Oximetry 97 100 99 Oxygen Delivery 02/05/25 21:00 02/06/25 03:15 02/06/25 05:48 Temperature 98.5 F 98.3 F Pulse Rate 84 64 Respiratory Rate 14 16 Blood Pressure 167/47 H 189/77 H Pulse Oximetry 99 96 Oxygen Delivery Room Air Intake/Output Intake/Output: Intake & Output 02/03/25 02/04/25 02/05/25 02/06/25 23:59 23:59 23:59 23:59 Intake Total 100 100 Output Total 300 Balance -200 100 Meds/Results Medications: Active Medications Generic Name Dose Route Start Last Admin Trade Name Freq PRN Reason Stop Dose Admin Hydralazine HCl 10 mg 02/05/25 16:31 02/05/25 18:34 Hydralazine Hcl 20 Mg/Ml Vial IV PUSH 10 mg Q8H PRN Administration SBP>180 and DBP>90 Sodium Chloride 1,000 mls @ 100 mls/hr 02/05/25 16:35 02/06/25 00:17 Normal Saline Iv IV CONT Not Given .Q10H TINY Levetiracetam 500 mg in 100 mls @ 400 mls/hr 02/06/25 04:00 02/06/25 03:33 Keppra Iv IVPB Infused Q12H TINY Infusion Morphine Sulfate 2 mg 02/05/25 15:15 Morphine Sulfate (*Crx) 2 Mg/Ml Inj IV PUSH Q2H PRN Pain Rated 7-10 Ondansetron HCl 4 mg 02/05/25 15:15 Ondansetron Inj 4 Mg/2 Ml Vial IV PUSH Q4H PRN Nausea Radiology Results: ITS Impressions Head CT 02/05/25 13:33 IMPRESSION: Hematoma which is most likely intraparenchymal but can be epidural hematoma in the right temporal lobe. Hematomas seen between the brain and left cerebellar hemisphere. Minimal subarachnoid hemorrhage in the left frontal lobe area. Large left frontal scalp hematoma. Physician: Jack Quintanilla MD Was notified with the result of the patient at 1 4:30 PM on February 05, [address] 02/05/25 14:02 IMPRESSION: No acute fracture or traumatic malalignment in the cervical spine. 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 Labs Labs: Laboratory Results - last 24 hr 02/05/25 02/06/25 14:50 04:39 WBC 6.0 5.7 RBC 3.50 L 3.37 L Hgb 10.8 L 10.5 L Hct 33.7 L 31.7 L MCV 96.3 94.1 MCH 30.9 31.2 MCHC 32.0 33.1 RDW 13.4 13.1 Plt Count 242 227 MPV 10.5 H 10.7 H Immature Gran % (Auto) 0.3 0.4 Neut % (Auto) 60.2 58.2 Lymph % (Auto) 23.7 23.6 [place] % (Auto) 10.5 H 11.3 H Eos % (Auto) 4.8 H 5.6 H Baso % (Auto) 0.5 0.9 Lymph # (Auto) 1.42 1.34 [place] # (Auto) 0.6 0.6 Eos # (Auto) 0.3 0.3 Baso # (Auto) 0.0 0.1 Abs Immat Gran (auto) 0.02 0.02 Absolute Neuts (auto) 3.6 3.3 Absolute Nucleated RBC 0.000 0.000 Nucleated RBC % 0.0 0.0 PT 13.1 13.2 INR 1.0 1.0 APTT 26.2 27.1 Sodium 138 140 Potassium 4.1 3.7 Chloride 103 106 Carbon Dioxide 30 29 Anion Gap 5 5 BUN 12 10 Creatinine 0.69 L 0.61 L Estim Creat Clear Calc 62 42 Estimated GFR > 60 > 60 Glucose 102 91 Calcium 9.1 8.4 Magnesium 2.1 Total Bilirubin 0.4 0.7 AST 22 24 ALT 12 11 Alkaline Phosphatase 83 66 Total Protein 7.0 7.0 Albumin 3.9 3.6 Quality VTE Prophylaxis VTE prophylaxis: mechanical ordered
[2025-02-06 09:11] VITALS: O2SAT 96
[2025-02-06] MEDS: SODIUM CHLORIDE 0.9% IV 1,000 ML 100 ML IV CONT ×2 (12:29→22:32)
[2025-02-06 15:35] VITALS: BP 153/90; PULSE 87; RESP 16; TEMP 36.4; O2SAT 98
--- NOTE | 2025-02-06 16:18 | PCSTNOTE ---
Please refer to the Modified Barium Swallow Evaluation in the EMR. The above pleasantly confused patient was seen for an ([facility]) modified barium swallow due to reported difficulty with the puree diet. She was alert but only oriented 1-2. She only had upper dentures in place but stated she had lower dentures, but they weren't here (question accuracy). No obvious labial or lingual weakness was exhibited; Oral mucosa is normal; vocal quality was clear before the exam. She was seated for a lateral view and presented with 5 ml thin liquid via a spoon, pudding consistency barium via a spoon, small pieces of cracker coated with barium pudding via a spoon, as well as uncontrolled barium which was presented via a cup and a straw. The oral stages were WFL; she required a min cue to clear a small piece of cracker but no pocketing or leakage occurred; during the pharyngeal stage: very shallow (flash/quickly ejected) laryngeal penetration with thin liquids via cup and straw was exhibited. Esophageal stage symptoms: none. No aspiration occurred. Impressions: The patient presents with functional swallow ability; however, laryngeal penetration was exhibited intermittently during trials of thin liquids. Pt demonstrated the ability to effectively masticate small pieces of solids. No aspiration occurred. Recommendations: level 5 minced and moist diet with level 1 regular liquids; occasional supervision during meals is recommended due to pts confusion. OOB for meals is ideal to reduce risk of aspiration or pt should be seated completely upright. Thank you for this referral.
[2025-02-06] MEDS: CALCIUM/VITAMIN D 500 MG/5 MCG (200 I.U.) TABLET PO (17:06)
[2025-02-06] MEDS: lisinopriL 5 MG TABLET PO (17:06)
[2025-02-06] MEDS: MAGNESIUM OXIDE 400 MG TABLET PO (17:07)
[2025-02-06] MEDS: OMEGA 3 POLYUNSAT FATTY ACIDS 1 GM CAP PO (17:07)
[2025-02-06] MEDS: HYDROcodone/acetaminophen (*CRX) 5-325 MG TABLET 1 TAB PO (20:10)
[2025-02-06] MEDS: SENNA/DOCUSATE SODIUM TABLET 2 TAB PO (20:10)
[2025-02-06] MEDS: ARTIFICIAL TEARS OPHTH SOLN 15 ML BOTTLE 1 DROP EACH EYE (20:11)
[2025-02-06 20:53] VITALS: BP 210/90; PULSE 94; RESP 16; TEMP 36.7; O2SAT 100
[2025-02-06] MEDS: hydrALAZINE HCL 20 MG/ML VIAL 10 MG IV PUSH (20:54)
[2025-02-07] MEDS: levETIRAcetam 500MG/NACL 100ML 500 MG/100 ML BAG 400 MG IVPB (03:09)
[2025-02-07 05:00] VITALS: BP 157/70; PULSE 92; RESP 16; TEMP 36.7; O2SAT 91
[2025-02-07] MEDS: LEVOTHYROXINE SODIUM 100 MCG TABLET PO (06:14)
[2025-02-07] MEDS: SODIUM CHLORIDE 0.9% IV 1,000 ML 100 ML IV CONT (09:02)
[2025-02-07] MEDS: CALCIUM CARBONATE (OSCAL) 500 MG TABLET 1000 MG PO (11:18)
[2025-02-07] MEDS: CALCIUM CARBONATE (OSCAL) 250 MG TABLET PO (11:18)
[2025-02-07] MEDS: CYANOCOBALAMIN 1,000 MCG TABLET 1000 MCG PO (11:18)
[2025-02-07] MEDS: SENNA/DOCUSATE SODIUM TABLET 2 TAB PO (11:18)
[2025-02-07 11:19] VITALS: PULSE 92
[2025-02-07] MEDS: METOPROLOL TARTRATE 25 MG TABLET PO (11:19)
[2025-02-07] MEDS: ASCORBIC ACID 500 MG TABLET PO (11:19)
[2025-02-07] MEDS: DULoxetine HCL 30 MG CAPSULE.DR 60 MG PO (11:19)
[2025-02-07] MEDS: CHOLECALCIFEROL 1,000 UNITS TABLET 1000 UNITS PO (11:19)
[2025-02-07] MEDS: ASPIRIN 325 MG ENTERIC TABLET 650 MG PO (11:20)
[2025-02-07] MEDS: HYDROcodone/acetaminophen (*CRX) 5-325 MG TABLET 1 TAB PO (13:14)
[2025-02-07 14:00] VITALS: BP 148/69; PULSE 90; RESP 16; TEMP 36.5; O2SAT 92
--- NOTE | 2025-02-07 14:39 | P.DS_ITS ---
DS: Admitting Diagnosis Discharge Date 02/07/2025 Admitting Diagnosis Close head injury Dysphagia Hypertension High cholesterol Hypothyroidism Dementia DS: Discharge Diagnosis Discharge Diagnosis (1) Closed head injury: Code(s): S09.90XA - Unspecified injury of head, initial encounter Status: Acute (2) Dysphagia: Code(s): R13.10 - Dysphagia, unspecified Status: Acute (3) HTN (hypertension): Onset Date: Unknown Qualifiers: Hypertension type: primary hypertension Qualified Code(s): I10 - Essential (primary) hypertension Code(s): I10 - Essential (primary) hypertension Status: Chronic (4) High cholesterol: Onset Date: Unknown Code(s): E78.00 - Pure hypercholesterolemia, unspecified Status: Chronic (5) Hypothyroidism: Onset Date: ~11/28/21 Qualifiers: Hypothyroidism type: unspecified Qualified Code(s): E03.9 - Hypothyroidism, unspecified Code(s): E03.9 - Hypothyroidism, unspecified Status: Chronic (6) Dementia: Code(s): F03.90 - Unspecified dementia, unspecified severity, without behavioral distur bance, psychotic disturbance, mood disturbance, and anxiety Status: Chronic DS: Summary Hospital Course Reason for hospitalization: Close head injury Dysphagia Hypertension High cholesterol Hypothyroidism Dementia Hospital Course: 89 year old female pt with PMH of HTN, HLD, Dementia w/baseline level of orientation 0-1, hip fracture and hypothyroidism w/surgical parathyroidectomy comes to the hospital from [facility] where she resides with acute bruising and hematoma to the left side of the head and down the face. Per chart review bruising was noted yesterday however POA did not want to have pat ient evaluated until she later developed dysphagia on her pureed diet. Vital stable and labs unremarkable on admission. Head CT was obtained and showed minimal SAH in the left frontal lobe area, large left frontal scalp hematoma, hematomas between the brain and left cerebella hemisphere, and hematoma which is most likely intraparenchymal but can be epidural in the right temporal lobe. C spine CT showed no acute fracture or traumatic malalignment of the c spine however grade i anterior listhesis at C4 through C5 and C7 through T1, presumably on a degenerative basis. Per chart review and in-depth conversation was had with the patient's power of research attorney at the bedside and patient was made DNR and it was decided that neurosurgical or trauma evaluation would not be pursued. Patient's aspirin was placed on hold at that time and remains on hold at discharge until follow-up with primary care provider. Patient was started on Keppra for seizure prophylaxis given subarachnoid hemorrhage. Prior to discharge discussed patient with Neurology Dr. Lazo who is in agreement with continuation of the Keppra for seizure prophylaxis given the subarachnoid hemorrhage as seen on imaging. Repeat head CT was obtained to re-evaluate the extent the hemorrhages which were essentially unchanged from prior exam. A modified barium swallow was performed by speech therapy given patient's dysphagia and she was started on mints moist diet with regular liquids. A hip and pelvis x-ray was obtained given patient's bruising noted to the left hip. X-ray showed internally fixed old healed intertrochanteric fracture but no acute osseous abnormality. Prior to discharge also discussed patient with daughter/mariam Dickerson and her who was in agreement with current treatment plan. Patient discharged back to [facility] in a stable condition. She is to follow up with her primary care provider 1 week. Status at Discharge Functional status at discharge: wheelchair bound Time Spent with Patient Time attestation: Total time spent providing and/or coordinating discharge services: Time spent: Greater than 30 minutes Exam Narrative: AF HR 92 RR 16 SpO2 91 BP 157/70 General: female in no acute respiratory distress who is nontoxic appearing, lying semi recumbent in bed. HEENT: Normocephalic. Bruising noted to left face and down neck. Pupils equal round reactive to light. Extraocular movement intact. Sclera clear and anicteric. No facial asymmetry. Chest: Lungs are clear to auscultation bilaterally. No wheezes or crackles. CV: Heart was regular rate and rhythm. S1-S2. No murmurs, gallops, or rubs. Abd: Abdomen was soft. Nontender. Nondistended. Positive bowel sounds. Ext: No clubbing, cyanosis, or edema. DP pulses bilaterally. Bruising to left hip with chronic shortening. Neuro: Patient is alert and oriented x1 (baseline). Moving all extremities. Speech is clear. DS: Data Data Completed and Pending Completed studies during hospitalization: Hip/pelvis x-ray Head CT MBS C-spine CT Head CT Discharge Plan Discharge Attending physician on discharge: Gerber Fink Discharging Clinician: Oma Hogan Anticipated Discharge Date/Time: 02/07/25 13:15 Patient Disposition: NH Skilled Nursing/Asst Living Activity: as tolerated Diet: as tolerated and other - see discharge instructions Discharge Instructions: Discharge disposition: Patient admitted to the hospital for an unwitnessed fall resulting in a subarachnoid hemorrhage Remains at baseline AOx1 POA not wanting further surgical intervention or any further NSY workup during admission Repeat head CT was unchanged from CT on admission Hold aspirin until follow up with PCP Started on keppra due to increased seizure risk with hemorrhage, attached is information on this medication Modified swallow study obtained level 5 minced and moist diet with level 1 regular liquids; occasional supervision during meals is recommended due to pts confusion. OOB for meals is ideal to reduce risk of aspiration or pt should be seated completely upright. Continue to monitor for worsening neurological symptoms Monitor blood pressures Take caution while standing, rising, or moving Change positions slowly taking a break between each position change If you standing feel dizzy sit back down and take a break Encouraged to continue with yearly vaccinations Return to the emergency department if he developed sudden shortness of breath, chest pain, nausea, vomiting, upset stomach or intractable diarrhea Return to the emergency department if you develop fever greater than 101.5 Follow-up with the primary care physician within 1-2 weeks Thank you for choosing [facility] for your healthcare needs Patient Instructions: Levetiracetam (By mouth), Subarachnoid Hemorrhage (DC) Patient Language: Citizen Of [place] Stand Alone Forms: General Discharge Information Follow-up/Referrals: Nakul Rivers MD [Primary Care Provider] - 1 Week Discharge Medications: New levetiracetam [Keppra] 500 mg tablet 500 mg PO BID Qty: 60 0RF Continued mecobalamin (vitamin B12) 1,000 mcg tablet,chewable 1,000 mcg PO DAILY Qty: 30 2RF naproxen sodium [Aleve] 220 mg capsule 220 mg PO TID PRN (Reason: pain) calcium carbonate-vitamin D3 [Calcium 600 + D(3)] 600 mg-5 mcg (200 unit) tablet 1 tablet PO QPM sodium chloride 5 % drops 1 drp EACH EYE QHS ascorbic acid (vitamin C) 1,000 mg tablet 500 mg PO DAILY omega-3 fatty acids 1,000 mg capsule 1,000 mg PO QPM levothyroxine [Synthroid] 88 mcg tablet 100 mcg PO DAILY calcium carbonate [Oyster Shell Calcium 500] 500 mg calcium (1,250 mg) Tablet 1,250 mg PO DAILY lisinopril 5 mg tablet 5 mg PO QPM magnesium 200 mg tablet 400 mg PO QPM duloxetine [Cymbalta] 30 mg capsule,delayed release(DR/EC) 60 mg PO DAILY Artificial Tears([id number]) Drops 1 drp EACH EYE Q12H hydrocodone-acetaminophen 5-325 mg Tablet 1 tablet PO Q4H PRN (Reason: pain) Qty: 30 0RF sennosides-docusate sodium [Senokot-S] 8.6-50 mg Tablet 2 tab PO BID Qty: 60 0RF metoprolol tartrate 25 mg tablet 25 mg PO DAILY Qty: 60 0RF cholecalciferol (vitamin D3) 25 mcg (1,000 unit) capsule 25 mcg PO DAILY Qty: 90 1RF Held aspirin 325 mg Tablet,Delayed Release (Dr/Ec) 650 mg PO QAM Hold Instructions: Resume on 03/04/25. Hold until follow up with PCP. Date of admission: 02/06/25 10:44 Primary Care Provider: Nakul Rivers Admitting Provider: Jf White Attending physician on admission: Oma Hogan Condition: Stable Hospitalist MIPS Heart Failure (Exclusion) Patient has history of Heart Transplant or Left Ventricular Assistive Device?: No IF YES, STOP HERE Heart Failure (Qualifier) Patient has current or prior documentation of LVEF less than or equal to 40%, or mod/servere depressed LVSF?: No IF NO, STOP HERE
== END 2025-02-07 17:30 | DRG 605 ==
LOC: ANHED 12:30 → ANH2MED 16:24
PROVIDERS: Nurse Practitioner Adult Health; Admitting Provider Internal Medicine; Emergency Provider Emergency Medicine; PCP Family Medicine; Visit Provider Student in an Organized Health Care Education/Training Program
DX: S00.93XA Contusion of unspecified part of head, initial encounter (principal); W19.XXXA Unspecified fall, initial encounter; I10 Essential (primary) hypertension; E78.5 Hyperlipidemia, unspecified; F03.90 Unspecified dementia, unspecified severity, without behavioral disturbance, psychotic disturbance, mood disturbance, and anxiety; R13.10 Dysphagia, unspecified; Z90.89 Acquired absence of other organs; Z79.82 Long term (current) use of aspirin; Z66 Do not resuscitate; Z98.41 Cataract extraction status, right eye; Z98.42 Cataract extraction status, left eye; Z96.1 Presence of intraocular lens
CPT/HCPCS: 36415; 70450; 72125; 73502; 80053; 83735; 85025; 85610; 85730; 92611; 96365; 99285; A9270; G0378; J0360; J1953; J7030

== ENCOUNTER 2025-04-08 16:47 | Emergency (ER) | payer MEDICARE, OTHER, SELFPAY ==
--- NOTE | ~2025-04-08 | CT_ITS ---
EXAMINATION: CT brain wo con DATE: 04/08/2025 18:00 INDICATION: fall, hematoma L. forehead, htn . TECHNIQUE: Computed tomography (CT) of the head was performed without intravenous contrast. The mA wa s adjusted according to patient size. Iterative reconstruction technique was employed. The dose-lengt h product was 681.00 mGy-cm. COMPARISON: 02/06/2025. FINDINGS: No acute intracranial hemorrhage or extra-axial fluid collection. No hydrocephalus, mass, or herniation. No acute ischemic infarct. Unremarkable dural venous sinus attenuation. No acute osseous abnormality. Left frontotemporal scalp hematoma. Trace left mastoid fluid, the remaining aerated spaces are clear. Moderate atrophy and chronic white matter change. Atherosclerotic intracranial calcification. Bilater al lens replacements. Old right basal ganglia lacunar infarcts. IMPRESSION: No acute intracranial process. Reviewed, dictated and finalized at location K.
--- NOTE | ~2025-04-08 | XR_ITS ---
EXAM: XR hip LT 2V w AP pelvis DATE: 04/08/2025 17:37 HISTORY: fall, L. leg shortened, L. hip swelling and pain . COMPARISON: 02/07/2025. FINDINGS: Osteopenia. Degenerative changes in the spine and bilateral hips. Left hip hardware, no gonzalez rdware fracture or abnormal perihardware lucency detected. No osseous fracture. No lytic or blastic l esions. IMPRESSION: No acute osseous finding in the left hip. No radiographic evidence of hardware related co mplication. Reviewed, dictated and finalized at location K. IMPRESSION: No acute osseous finding in the left hip. No radiographic evidence of hardware related complication.
--- NOTE | ~2025-04-08 | CT_ITS ---
EXAMINATION: CT cervical spine wo con DATE: 04/08/2025 18:00 INDICATION: fall, hit head TECHNIQUE: Computed tomography (CT) of the cervical spine was performed without intravenous contrast. Automated exposure control and iterative reconstruction technique were employed. The dose-length pro duct was 124.54 mGy-cm. COMPARISON: 02/05/2025. FINDINGS: Vertebral Body Alignment: Stable trace multilevel listheses, likely on an degenerative basis. Craniocervical and atlantoaxial alignment: Mild degenerative change. Alignment intact. Osseous structures/fracture: No evidence of a lytic or blastic process in the visualized spine. No e vidence of acute fracture. Left C4-5 facet fusion Cervical soft tissues: The paraspinal soft tissues planes are maintained. Degenerative changes: Degenerative changes, without severe neural foraminal or central canal narrowin g. IMPRESSION: No acute fracture or traumatic malalignment in the cervical spine. Reviewed, dictated and finalized at location K.
[2025-04-08 16:48] VITALS: BP 222/90; PULSE 50; RESP 20; O2SAT 99
--- NOTE | 2025-04-08 17:05 | ECG_ITS ---
Test Date: 2025-04-08 18:30:14 Measurements Intervals [place] Rate: 88 P: 66 CO: 167 QRS: 22 QRSD: 85 T: 50 QT: 375 QTc: 455 Interpretive Statements SINUS RHYTHM Compared to ECG 08/23/2024 19:09:35 No significant changes Electronically Signed On 04-09-2025 13:40:35 CDT by Frederick Kasper M.D.
[2025-04-08 17:09] VITALS: TEMP 36.9
--- NOTE | 2025-04-08 17:12 | PC.NURSE ---
Pt. c/o L. hip pain. L. leg shortened and L. hip swollen. Pt. c/o pain to this area. Dr. Ozuna notified. Verbal order given.
[2025-04-08 17:16] VITALS: BP 223/94; PULSE 54; RESP 13; O2SAT 100
--- NOTE | 2025-04-08 17:16 | PC.NURSE ---
Dr. Ozuna notified of pt. htn. Per MD, IV needs to be started for pharmacological intervention. RN to bedside to initiate IV.
--- NOTE | 2025-04-08 17:29 | PC.NURSE ---
Dr. Ozuna notified of pt. htn. Verbal order given for pharmacological intervention.
[2025-04-08 17:32] VITALS: BP 203/73; PULSE 77; RESP 13
--- NOTE | 2025-04-08 17:48 | ED.FALL ---
HPI - Fall General Chief Complaint: Fall Stated Complaint: glf, struck head Time Seen by Provider: 04/08/25 17:48 Source: EMS Mode of arrival: EMS Limitations: altered mental status History of Present Illness HPI Narrative: 89 YEARS OLD WHITE FEMALE CAME FROM [facility] FOR COMPLAINS OF WITNESSED FALL. PER EMS PATIENT WAS SEEN FALLING WHILE TRYING TO TAKE HERSELF TO THE BATHROOM. HEAD INJURY, NO LOSS OF CONSCIOUSNESS, NO BLOOD THINNER, PATIENT IS AWAKE AND ORIENTED TIME 1 WHICH IS HER BASELINE. HEMATOMA TO LEFT FOREHEAD, PATIENT DENIES ANY PAIN OR ANY COMPLAIN AT THIS TIME. Related Data Home Medications ?Medication ?Instructions ?Recorded ?Confirmed ?Last Taken ?Type dextran 70-hypromellose eye drops 1 drp EACH EYE Q12H 07/31/23 02/05/25 02/04/25 History (Artificial Tears (dextran 70-hypromellose) eye drops) ascorbic acid (vitamin C) 1,000 mg 500 mg PO DAILY 02/05/25 02/05/25 02/04/25 History tablet aspirin 325 mg tablet,delayed 650 mg PO QAM 02/05/25 02/05/25 02/04/25 History release calcium 600 mg (as 1 tablet PO QPM 02/05/25 02/05/25 02/04/25 History carbonate)-vitamin D3 5 mcg (200 unit) tablet (Calcium 600 + D(3)) calcium carbonate (Oyster Shell 1,250 mg PO DAILY 02/05/25 02/05/25 02/04/25 History Calcium 500) duloxetine 30 mg capsule,delayed 60 mg PO DAILY 02/05/25 02/05/25 02/04/25 History release (Cymbalta) levothyroxine 88 mcg tablet 100 mcg PO DAILY 02/05/25 02/05/25 02/04/25 History (Synthroid) lisinopril 5 mg tablet 5 mg PO QPM 02/05/25 02/05/25 02/04/25 History magnesium 200 mg tablet 400 mg PO QPM 02/05/25 02/05/25 02/04/25 History naproxen sodium 220 mg capsule 220 mg PO TID PRN pain 02/05/25 02/05/25 02/04/25 History (Aleve) omega-3 fatty acids 1,000 mg 1,000 mg PO QPM 05/01/2702/05/25 02/04/25 History capsule sodium chloride 5 % eye drops 1 drp EACH EYE QHS dry eye(s) 02/05/25 02/05/25 02/04/25 History Allergies Allergy/AdvReac Type Severity Reaction Status Date / Time No Known Allergies Allergy Verified 06/02/24 11:16 Review of Systems Review of Systems: ROS unobtainable: Yes unobtainable due to medical condition and unobtainable due to mental status PMFSH Past Medical History Medical History Dysphagia Dementia Closed head injury Closed left hip fracture Urinary incontinence, mixed History of shingles 03/2021 Snoring Skin change Hyperlipidemia Hypothyroidism (~11/28/21) History of squamous cell carcinoma HTN (hypertension) (Unknown) High cholesterol (Unknown) Surgical History Surgical History Status post cataract extraction of both eyes with insertion of intraocular lens History of hysterectomy History of parathyroidectomy Family History Family History Other Unknown family medical history Social History Social History Social History: Patient lives at [facility]. Code status: DNR 02/05/2025 Surrogate decision maker: Jayla Mahoney Smoking status: Never smoker Alcohol intake: never Substance use: never Substance use type: does not use Lack of Transportation: No Lack of Food: Sometimes True Current Housing: I Have Housing Concerned About Future Housing: No Difficulty Paying Gas/Electric Bills: No Difficulty Paying for Meds: No Currently Unemployed: No Education: Grade School Difficulty w/ Childcare or Family Care: No Living arrangements: intermediate Spiritual care concerns: No Exam Narrative: GENERAL APPEARANCE: WELL-DEVELOPED, WELL-NOURISHED SKIN: NORMAL COLOR HEAD: NORMOCEPHALIC, LEFT FOREHEAD HEMATOMA EYES: CLEAR CONJUNCTIVA ENT: OROPHARYNX NORMAL, EARS NORMAL, NOSE NORMAL NECK: SUPPLE, NONTENDER CHEST AND RESPIRATORY: AIRWAY PATENT, NO RESPIRATORY DISTRESS, NO ACCESSORY MUSCLE USE HEART: REGULAR RATE/RHYTHM ABDOMEN: SOFT, NONTENDER, NO ORGANOMEGALY, QUIET BOWEL SOUNDS VASCULAR: NORMAL PERIPHERAL PULSES, NORMAL CAPILLARY REFILL. MUSCULOSKELETAL: NO LIMITATION OF UPPER OR LOWER EXTREMITY MOVEMENT NEUROLOGIC: ALERT AND ORIENTED ? TO HER NAME ONLY Course Vital Signs Vital signs: Vital Signs Pulse Rate 50 L 04/08/25 16:48 Respiratory Rate 20 04/08/25 16:48 Blood Pressure 222/90 H 04/08/25 16:48 Pulse Oximetry 99 04/08/25 16:48 Oxygen Delivery Room Air 04/08/25 16:48 Temperature 36.9 C 04/08/25 17:09 Pulse Rate 78 04/08/25 18:26 Respiratory Rate 12 04/08/25 18:26 Blood Pressure 178/83 H 04/08/25 18:26 Pulse Oximetry 100 04/08/25 18:26 Oxygen Delivery Room Air 04/08/25 16:48 MDM - Fall Imaging Data Radiologist's impression: Impressions Hip/Pelvis X-Ray 04/08/25 18:03 IMPRESSION: No acute osseous finding in the left hip. No radiographic evidence of hardware related complication. Head CT 04/08/25 18:04 IMPRESSION: No acute intracranial process. Cervical Spine CT 04/08/25 18:19 IMPRESSION: No acute fracture or traumatic malalignment in the cervical spine. Critical Care Time Critical Care Time Critical Care Time: No Discharge Plan Discharge Clinical Impression: Fall, CHI (closed head injury), Contusion Patient Disposition: NH Alf/Asst Living Condition: Stable Instructions: Head Injury (ED), Contusion in Adults (ED) Patient Language: [place] Citizen Prescriptions: No Action mecobalamin (vitamin B12) 1,000 mcg tablet,chewable 1,000 mcg PO DAILY Qty: 30 2RF naproxen sodium [Aleve] 220 mg capsule 220 mg PO TID PRN (Reason: pain) calcium carbonate-vitamin D3 [Calcium 600 + D(3)] 600 mg-5 mcg (200 unit) tablet 1 tablet PO QPM sodium chloride 5 % drops 1 drp EACH EYE QHS ascorbic acid (vitamin C) 1,000 mg tablet 500 mg PO DAILY omega-3 fatty acids 1,000 mg capsule 1,000 mg PO QPM levothyroxine [Synthroid] 88 mcg tablet 100 mcg PO DAILY calcium carbonate [Oyster Shell Calcium 500] 500 mg calcium (1,250 mg) Tablet 1,250 mg PO DAILY aspirin 325 mg Tablet,Delayed Release (Dr/Ec) 650 mg PO QAM lisinopril 5 mg tablet 5 mg PO QPM magnesium 200 mg tablet 400 mg PO QPM duloxetine [Cymbalta] 30 mg capsule,delayed release(DR/EC) 60 mg PO DAILY levetiracetam [Keppra] 500 mg tablet 500 mg PO BID Qty: 60 0RF Artificial Tears([id number]-[id number]) Drops 1 drp EACH EYE Q12H hydrocodone-acetaminophen 5-325 mg Tablet 1 tablet PO Q4H PRN (Reason: pain) Qty: 30 0RF sennosides-docusate sodium [Senokot-S] 8.6-50 mg Tablet 2 tab PO BID Qty: 60 0RF metoprolol tartrate 25 mg tablet 25 mg PO DAILY Qty: 60 0RF cholecalciferol (vitamin D3) 25 mcg (1,000 unit) capsule 25 mcg PO DAILY Qty: 90 1RF Follow-up/Referrals: Nakul Rivers MD [Primary Care Provider] -
--- NOTE | 2025-04-08 17:53 | PC.NURSE ---
RN went to room to assess vitals prior to administration of betablocker. Pt's HR sitting at 50-53BPM. Spoke with Dr. Ozuna regarding concern with giving medication d/t low heart rate. Dr. Ozuna is agreeable to not giving medication d/t HR. Pt remains alert to self per baseline. No disress noted. Denies NICE, CP, dizziness.
[2025-04-08 18:26] VITALS: BP 178/83; PULSE 78; RESP 12; O2SAT 100
--- NOTE | 2025-04-08 18:30 | PC.NURSE ---
Pt. urinated in depend. Pt. cleaned of urine, clean depend applied and pure wick. Pt. in no acute distress at this time.
--- NOTE | 2025-04-08 19:00 | PC.NURSE ---
RN called pt's POA/daughter to provide update. All questions answered at this time.
--- NOTE | 2025-04-08 19:05 | PC.NURSE ---
EMS ETA 2200. RN spoke with staff member at [facility] to give update on discharge and negative imaging. Nurse to call back with any questions.
[2025-04-09 03:00] VITALS: BP 140/74; PULSE 78; RESP 19; O2SAT 94
== END 2025-04-09 06:35 ==
PROVIDERS: Emergency Provider Emergency Medicine; PCP Family Medicine
DX: S00.83XA Contusion of other part of head, initial encounter (principal); F03.90 Unspecified dementia, unspecified severity, without behavioral disturbance, psychotic disturbance, mood disturbance, and anxiety; I10 Essential (primary) hypertension; E03.9 Hypothyroidism, unspecified; E78.00 Pure hypercholesterolemia, unspecified; Z66 Do not resuscitate; Z96.1 Presence of intraocular lens; Z98.42 Cataract extraction status, left eye; Z98.41 Cataract extraction status, right eye; Z90.710 Acquired absence of both cervix and uterus; Z90.89 Acquired absence of other organs; Z79.899 Other long term (current) drug therapy; W18.30XA Fall on same level, unspecified, initial encounter
CPT/HCPCS: 70450; 72125; 73502; 93005; 96374; 99284; J0360